=== PATIENT | male | born 1950 | race Caucasian/White ===

== ENCOUNTER → 2017-11-24 08:58 | Outpatient (CLI) | payer MEDICARE, OTHER, SELFPAY ==
[2017-11-24 14:17] LABS: Basophils # 0.1 K/mm3 (0-0.2); Basophils % 0.6 % (0.1-2.0); Eosinophils # 0.3 K/mm3 (0.0-0.4); Eosinophils % 2.6 % (0.1-12.0); Hematocrit 53.6 % (42.0-52.0); Hemoglobin 16.2 g/dL (14.1-18.0); Lymphocytes # 1.3 K/mm3 (0.7-4.5); Lymphocytes % 13.5 K/mm3 (10-50); Mean Corpuscular HGB Conc 30.2 g/dL (31.8-35.4); Mean Corpuscular Hemoglobin 28.8 pg (27.0-31.2); Mean Corpuscular Volume 95.3 fl (80-94); Mean Platelet Volume 7.9 fl (7.4-10.4); Monocytes # 0.5 K/mm3 (0.1-1.0); Neutrophils # 7.5 K/mm3 (1.8-7.8); Neutrophils % 78.3 % (37.0-80.0); Platelet Count 284 K/mm3 (142-424); Red Blood Count 5.63 M/mm3 (4.60-6.20); Red Cell Distribution Width 17.3 % (11.5-17.5); White Blood Count 9.6 K/mm3 (4.8-10.8)
[2017-11-24 14:29] LABS: Phosphorous 3.5 mg/dL (2.4-4.9)
[2017-11-24 14:40] LABS: Alanine Aminotransferase 38 U/L (12-78); Albumin Level 3.9 gm/dL (3.4-5.0); Albumin/Globulin Ratio 1.1 (1.1-1.8); Alkaline Phosphatase 90 U/L (46-116); Anion Gap 11.5 mEq/L (5-15); Aspartate Amino Transferase 21 U/L (15-37); Bilirubin,Total 0.6 mg/dL (0.2-1.0); Blood Urea Nitrogen 18 mg/dL (7-18); Calcium 8.6 mg/dL (8.5-10.1); Carbon Dioxide 27 mmol/L (21.0-32.0); Chloride 105 mmol/L (98-107); Chol/HDL Ratio 6.7 (1-3.5); Cholesterol 201 mg/dL (140-200); Creatinine,Serum 1.44 mg/dL (0.70-1.30); Estimated Glomerular Filt Rate 49 ml/min (>60); GFR (African American) 59 ML/MIN (>60); Globulin 3.6 gm/dl (1.3-3.2); Glucose 190 mg/dL (74-106); HDL Cholesterol 30 mg/dL (27-67); LDL Cholesterol 127 mg/dL (0-130); Potassium 4.5 mmoL/L (3.5-5.1); Sodium 139 mmol/L (136-145); Thyroid Stimulating Hormone 0.16 uIU/ml (0.358-3.740); Total Protein,Serum 7.5 gm/dL (6.4-8.2); Triglycerides 221 mg/dL (30-200); VLDL Cholesterol 44 mg/dL (0-40)
[2017-11-24 14:55] LABS: Hemoglobin A1C 7.5 % (0.0-7.0)
[2017-11-24 15:11] LABS: Erythrocyte Sedimentation Rate 10 mm/hr (0-20)
[2017-11-25 09:03] LABS: Vitamin D 25 Hydroxy 45.5 ng/mL (30.0-100.0)
[2017-11-25 10:20] LABS: Microalbumin, Urine 148.3 ug/mL (Not Estab.)
[2017-11-26 12:24] LABS: Parathyroid Hormone Intact 48 pg/mL (15-65)
== END ==
PROVIDERS: Internal Medicine Nephrology; Visit Provider Internal Medicine
DX: E11.9 Type 2 diabetes mellitus without complications (principal); I10 Essential (primary) hypertension; M05.9 Rheumatoid arthritis with rheumatoid factor, unspecified; N18.3 Chronic kidney disease, stage 3 (moderate)
CPT/HCPCS: 36415; 80053; 80061; 82043; 82570; 82652; 83036; 83970; 84100; 84443; 85025; 85651

== ENCOUNTER → 2019-03-15 14:36 | Outpatient (CLI) | payer MEDICARE, OTHER, SELFPAY ==
[2019-03-15 15:01] LABS: Hematocrit 49.7 % (42.0-52.0); Hemoglobin 15.9 g/dL (14.1-18.0)
[2019-03-15 15:56] LABS: Albumin Level 3.5 gm/dL (3.4-5.0); Anion Gap 12.7 mEq/L (5-15); Blood Urea Nitrogen 16 mg/dL (7-18); Calcium 8.6 mg/dL (8.5-10.1); Carbon Dioxide 30 mmol/L (21.0-32.0); Chloride 104 mmol/L (98-107); Creatinine,Serum 1.57 mg/dL (0.70-1.30); Estimated Glomerular Filt Rate 44 ml/min (>60); GFR (African American) 53 ML/MIN (>60); Glucose 202 mg/dL (74-106); Phosphorous 4.1 mg/dL (2.4-4.9); Potassium 4.7 mmoL/L (3.5-5.1); Sodium 142 mmol/L (136-145)
[2019-03-17 13:16] LABS: Creatinine, Urine 34.9 mg/dL (Not Estab.); Microalbumin, Urine 31.4 ug/mL (Not Estab.)
[2019-03-18 11:01] LABS: Parathyroid Hormone Intact 44 pg/mL (15-65)
== END ==
PROVIDERS: Visit Provider Internal Medicine Nephrology
DX: N18.3 Chronic kidney disease, stage 3 (moderate) (principal)
CPT/HCPCS: 36415; 80069; 82043; 82570; 83970; 85014; 85018

== ENCOUNTER → 2019-10-01 12:35 | Outpatient (CLI) | payer MEDICARE, OTHER, SELFPAY ==
[2019-10-01 13:07] LABS: Hematocrit 52.4 % (42.0-52.0); Hemoglobin 16.3 g/dL (14.1-18.0)
[2019-10-01 15:03] LABS: Albumin Level 4.7 g/dl (3.5-5.0); Anion Gap 7.2 mEq/L (5-15); Blood Urea Nitrogen 18 mg/dl (9-20); Calcium 9.7 mg/dl (8.4-10.2); Carbon Dioxide 30 mmol/L (22.0-30.0); Chloride 103 mmol/L (98-107); Estimated Glomerular Filt Rate 46 ml/min (>60); GFR (African American) 56 ML/MIN (>60); Glucose 151 mg/dl (74-100); Potassium 5.2 mmoL/L (3.5-5.1); Sodium 135 mmol/L (136-145)
[2019-10-02 04:34] LABS: Iron 47 ug/dL (38-169); UIBC 278 ug/dL (111-343)
[2019-10-02 08:15] LABS: Iron Saturation 14 % (15-55); Vitamin D 25 Hydroxy 43.8 ng/mL (30.0-100.0)
[2019-10-02 10:56] LABS: Creatinine, Urine 105.9; Microalbumin, Urine 117.4
[2019-10-03 05:51] LABS: Parathyroid Hormone Intact 36 pg/mL (15-65)
== END ==
PROVIDERS: Visit Provider Internal Medicine Nephrology
DX: N18.3 Chronic kidney disease, stage 3 (moderate); E87.2 Acidosis; I12.9 Hypertensive chronic kidney disease with stage 1 through stage 4 chronic kidney disease, or unspecified chronic kidney disease; R79.0 Abnormal level of blood mineral
CPT/HCPCS: 36415; 80069; 82043; 82570; 82652; 83540; 83550; 83970; 85014; 85018

== ENCOUNTER → 2020-04-05 09:33 | Outpatient (CLI) | payer MEDICARE, OTHER, SELFPAY ==
[2020-04-05 10:29] LABS: Creatinine,Urine Random 139 mg/dL (Not Estab.); Microalbumin/Creatinine Ratio 223.1
[2020-04-05 11:16] LABS: Albumin Level 4.3 g/dl (3.5-5.0); Anion Gap 12.4 mEq/L (5-15); Blood Urea Nitrogen 15 mg/dl (9-20); Calcium 9.2 mg/dl (8.4-10.2); Carbon Dioxide 29 mmol/L (22.0-30.0); Chloride 105 mmol/L (98-107); Estimated Glomerular Filt Rate 46 ml/min (>60); GFR (African American) 56 ML/MIN (>60); Glucose 118 mg/dl (74-100); Phosphorous 3.7 mg/dl (2.5-4.5); Potassium 4.4 mmoL/L (3.5-5.1); Sodium 142 mmol/L (136-145)
[2020-04-05 11:33] LABS: 25-OH Vitamin D, Total 72.6 ng/mL (30-100)
== END ==
PROVIDERS: PCP Internal Medicine; Visit Provider Internal Medicine Nephrology
DX: N18.30 Chronic kidney disease, stage 3 unspecified (principal)
CPT/HCPCS: 36415; 80069; 82043; 82306; 82570

== ENCOUNTER 2020-12-25 16:00 | Outpatient (RCR) | payer MEDICARE, OTHER, SELFPAY | END 2021-01-23 09:27 | disposition home or self-care (01) | LOC: PT.CARL 16:00 | PROVIDERS: PCP Internal Medicine; Visit Provider Nurse Practitioner Family | DX: M51.36 Other intervertebral disc degeneration, lumbar region (principal) | CPT/HCPCS: 97010; 97014; 97110; 97140; 97163; G0283 ==

== ENCOUNTER → 2021-06-05 10:21 | Outpatient (CLI) | payer MEDICARE, OTHER, SELFPAY ==
[2021-06-05 10:24] LABS: Microscopic, Urine URINE MICROSCOPIC (MICROSCOPIC)
[2021-06-05 13:56] LABS: Appearance,Urine CLEAR (Clear); Bilirubin,Urine Negative (Negative); Blood, Urine Negative (Negative); Color,Urine YELLOW (Yellow); Glucose,Urine (UA) 3+ (Negative); Ketones,Urine Negative (Negative); Leukocyte Esterase,Urine Negative (Negative); Nitrate,Urine Negative (Negative); PH,Urine 5.5 (5.0-8.5); Protein,Urine TRACE (Negative); Specific Gravity, Urine 1.025 (1.005-1.030); Urobilinogen,Urine 0.2 EU/dl (0.2)
[2021-06-05 14:02] LABS: Anion Gap 12.1 mEq/L (5-15); Blood Urea Nitrogen 16 mg/dl (9-20); Calcium 9.1 mg/dl (8.4-10.2); Carbon Dioxide 29 mmol/L (22.0-30.0); Chloride 100 mmol/L (98-107); Estimated Glomerular Filt Rate 40 ml/min (>60); GFR (African American) 48 ML/MIN (>60); Glucose 212 mg/dl (74-100); Phosphorous 3.6 mg/dl (2.5-4.5); Potassium 4.1 mmoL/L (3.5-5.1); Sodium 137 mmol/L (136-145)
[2021-06-05 14:04] LABS: Hematocrit 47.4 % (42.0-52.0); Hemoglobin 14.2 g/dL (14.1-18.0)
[2021-06-05 14:10] LABS: Intact Parathyroid Hormone 67.9 pg/mL (7.5-53.5); Squamous Epithelial Cell,Urine Occasional #/hpf (0-5)
[2021-06-05 14:15] LABS: 25-OH Vitamin D, Total 58.6 ng/mL (30-100)
== END ==
PROVIDERS: Visit Provider Internal Medicine Nephrology
DX: I10 Essential (primary) hypertension (principal); N18.30 Chronic kidney disease, stage 3 unspecified; E87.2 Acidosis; Z86.39 Personal history of other endocrine, nutritional and metabolic disease
CPT/HCPCS: 36415; 80069; 81001; 82306; 83970; 85014; 85018

== ENCOUNTER → 2021-09-18 09:20 | Outpatient (CLI) | payer MEDICARE, OTHER, SELFPAY ==
[2021-09-18 14:03] LABS: Chloride 105 mmol/L (98-107); Sodium 140 mmol/L (136-145)
[2021-09-18 14:04] LABS: Albumin Level 3.9 g/dl (3.5-5.0); Potassium 4.4 mmoL/L (3.5-5.1)
[2021-09-18 14:06] LABS: Anion Gap 10.4 mEq/L (5-15); Blood Urea Nitrogen 24 mg/dl (9-20); Carbon Dioxide 29 mmol/L (22.0-30.0); Estimated Glomerular Filt Rate 46 ml/min (>60); GFR (African American) 56 ML/MIN (>60)
[2021-09-18 14:07] LABS: Calcium 9.2 mg/dl (8.4-10.2); Glucose 164 mg/dl (74-100); Phosphorous 4.4 mg/dl (2.5-4.5)
== END ==
PROVIDERS: Visit Provider Internal Medicine Nephrology
DX: N18.31 Chronic kidney disease, stage 3a (principal)
CPT/HCPCS: 36415; 80069

== ENCOUNTER 2021-12-20 14:30 | Outpatient (RCR) | payer MEDICARE, OTHER, SELFPAY | END 2022-01-24 16:50 | disposition home or self-care (01) | LOC: PT.CARL 14:30 | PROVIDERS: PCP Internal Medicine; Visit Provider Anesthesiology | DX: M47.816 Spondylosis without myelopathy or radiculopathy, lumbar region (principal) | CPT/HCPCS: 97010; 97014; 97035; 97110; 97140; 97163; 97164; G0283 ==

== ENCOUNTER 2022-05-08 10:56 | Outpatient (RCR) | payer MEDICARE, OTHER, SELFPAY | END 2022-06-25 11:45 | disposition home or self-care (01) | LOC: PT.CARL 10:56 | PROVIDERS: PCP Internal Medicine; Visit Provider Internal Medicine | DX: M54.50 Low back pain, unspecified (principal); S39.92XD Unspecified injury of lower back, subsequent encounter | CPT/HCPCS: 97010; 97014; 97110; 97163; G0283 ==

== ENCOUNTER 2024-02-12 14:18 | Emergency (ER) | payer MEDICARE, OTHER, SELFPAY ==
[2024-02-12] VITALS (16 sets, daily range): BP systolic 135–204; BP diastolic 67–93; PULSE 72–82; RESP 13–20; TEMP 36.6–37.5; O2SAT 90–98; BMI 25.7
--- NOTE | 2024-02-12 14:22 | ED_ITS ---
<Statement entered by Lucy Ponce DO - 02/12/24 22:29> I was consulted by the SAROJ, and we discussed the complexity of the problems being addressed. I approved the treatment and management plan for this patient's care in the emergency department, thus performing a substantive portion of the medical decision making. Lucy Ponce DO Discharge Plan Disposition Patient Disposition: Xfer Short-Term Hosp Condition: Serious Prescriptions Prescriptions: No Action clopidogrel 75 mg Tablet 75 mg PO DAILY bupropion HCl 100 mg Tablet 100 mg PO BID amlodipine 10 mg Tablet 10 mg PO DAILY aspirin 81 mg Capsule 81 mg PO DAILY folic acid 1 mg Tablet 2 mg PO DAILY Rx Instructions: everyday but friday empagliflozin 25 mg Tablet 25 mg PO DAILY cetirizine 10 mg Tablet 5 mg PO DAILY metoprolol tartrate 100 mg Tablet 100 mg PO BID tramadol 50 mg Tablet 50 mg PO DAILY glimepiride 2 mg Tablet 2 mg PO DAILY famotidine 20 mg Tablet 20 mg PO DAILY trazodone 100 mg Tablet 100 mg PO DAILY PRN (Reason: Sleep) hydrocortisone 2.5 % Cream 1 applic TOPICAL QID PRN (Reason: sleep) methimazole 10 mg Tablet See Rx Instructions .ROUTE .COMPLEX Rx Instructions: 10 mg orally Friday/Friday/Friday memantine 10 mg Tablet 10 mg PO BID pregabalin 150 mg Capsule 150 mg PO BID Activity Restrictions/Add. Instructions Additional Instructions/Restrictions: To [place] Main care of Dr. Aragon Clinical Impressions Clinical Impression: Small bowel obstruction, Acute hypoxic respiratory failure, Clostridioides difficile infection Aspiration pneumonia Qualifiers: Aspiration pneumonia type: due to vomit Laterality: bilateral Lung location: l ower lobe of lung Qualified Code(s): J69.0 - Pneumonitis due to inhalation of food and vomit Stand Alone Forms Stand Alone Forms: Transfer Record - ED Instructions Patient Instructions: DI for Acute Abdominal Pain Print Language Print Language: Haitian Discharge ED Provider: Lucy Ponce General Adult HPI <KLAUS Schulte - Last Filed: 02/12/24 19:38> General Chief complaint: Abdominal Pain Stated complaint: nausea/abdominal pain(has colostomy bag) Time Seen by Provider: 02/12/24 14:22 History of Present Illness HPI narrative: Patient presents for evaluation of acute onset of nausea and abdominal pain. 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 Additionally he has had endovascular repair of a AAA aortic aneurysm as well as open heart surgery x 2. Patient states that his vomiting started first thing this morning and he has not been able to tolerate oral intake since. He reports his abdomen hurts diffusely as well. He reports no ostomy output today. He denies chest pain fever chills hemoptysis hematochezia melena hematemesis hematuria. Related Data Home Medications ?Medication ?Instructions ?Recorded ?Confirmed amlodipine 10 mg tablet 10 mg PO DAILY 02/12/24 02/12/24 aspirin 81 mg capsule 81 mg PO DAILY 02/12/24 02/12/24 bupropion HCl 100 mg tablet 100 mg PO BID 02/12/24 02/12/24 cetirizine 10 mg tablet 5 mg PO DAILY 02/12/24 02/12/24 clopidogrel 75 mg tablet 75 mg PO DAILY 02/12/24 02/12/24 empagliflozin 25 mg tablet 25 mg PO DAILY 02/12/24 02/12/24 famotidine 20 mg tablet 20 mg PO DAILY 02/12/24 02/12/24 folic acid 1 mg tablet 2 mg PO DAILY 02/12/24 02/12/24 glimepiride 2 mg tablet 2 mg PO DAILY 02/12/24 02/12/24 hydrocortisone 2.5 % topical cream 1 applic topical QID PRN sleep 02/12/24 02/12/24 memantine 10 mg tablet 10 mg PO BID 02/12/24 02/12/24 methimazole 10 mg tablet See Rx Instructions .Route .COMPLEX 02/12/24 02/12/24 metoprolol tartrate 100 mg tablet 100 mg PO BID 02/12/24 02/12/24 pregabalin 150 mg capsule 150 mg PO BID 02/12/24 02/12/24 tramadol 50 mg tablet 50 mg PO DAILY 02/12/24 02/12/24 trazodone 100 mg tablet 100 mg PO DAILY PRN Sleep 02/12/24 02/12/24 Allergies Allergy/AdvReac Type Severity Reaction Status Date / Time ibuprofen Allergy Unknown Verified 02/12/24 14:26 Penicillins Allergy Unknown Verified 02/12/24 14:40 Sulfa (Sulfonamide Allergy Unknown Verified 02/12/24 14:40 Antibiotics) [facility] <KLAUS Schulte - Last Filed: 02/12/24 19:38> [facility] Disclaimer: The information contained in this section may have been updated after the patient was seen, as this information can be updated by other users. Social History (Updated 02/12/24 @ 19:38 by KLAUS Schulte) Smoking Status: Never smoker alcohol intake: never current occupational status: retired Travel in the last 8 weeks: None <KLAUS Schulte - Last Filed: 02/12/24 19:38> ROS Obtained: Yes Systems reviewed as appropriate & no additional complaints except as documented Physical Exam <KLAUS Schulte - Last Filed: 02/12/24 19:38> General General appearance: alert and in no apparent distress Respiratory Respiratory exam: Present normal lung sounds bilaterally Cardiovascular Cardiovascular exam: Present regular rate Neurological Exam Neurological exam: Present alert and oriented X3 Medical Decision Making <KLAUS Schulte - Last Filed: 02/12/24 19:38> Medical Records Medical records reviewed: Yes I reviewed the patient's medical records. Screening: Per USPSTF and CDC recommendations, given the prevalence of disease in our region, it is our hospital?s policy to screen for HIV and viral Hepatitis for all patients aged 18 and over and those with ongoing risk factors. Markus Inquiry Pt receiving controlled substance: No Vital Signs: 02/12/24 14:18 02/12/24 14:19 02/12/24 14:59 Temperature 99.5 F Temperature Source Oral Pulse Rate 82 81 Pulse Rate [Left Radial] 82 Respiratory Rate 13 Blood Pressure 155/87 H 177/91 H Blood Pressure [Right Arm] 155/87 H Blood Pressure Mean Blood Pressure Mean [Right Arm] 109 02 Sat by Pulse Oximetry 90 L 90 L 93 L Oxygen Delivery Method Room Air Room Air Nasal Cannula 02/12/24 16:01 02/12/24 16:30 02/12/24 17:01 Temperature Temperature Source Pulse Rate 82 81 78 Pulse Rate [Left Radial] Respiratory Rate 18 Blood Pressure 198/93 H 202/85 H 161/67 H Blood Pressure [Right Arm] Blood Pressure Mean 124 98 Blood Pressure Mean [Right Arm] 02 Sat by Pulse Oximetry 96 93 L 95 Oxygen Delivery Method Nasal Cannula 02/12/24 17:30 02/12/24 18:00 02/12/24 18:31 Temperature Temperature Source Pulse Rate 76 77 72 Pulse Rate [Left Radial] Respiratory Rate Blood Pressure 156/68 H 154/74 H 161/75 H Blood Pressure [Right Arm] Blood Pressure Mean Blood Pressure Mean [Right Arm] 02 Sat by Pulse Oximetry 95 95 96 Oxygen Delivery Method Room Air Room Air 02/12/24 19:01 02/12/24 19:10 02/12/24 19:31 Temperature Temperature Source Pulse Rate 76 80 78 Pulse Rate [Left Radial] Respiratory Rate Blood Pressure 204/85 H 166/87 H 191/86 H Blood Pressure [Right Arm] Blood Pressure Mean 113 121 Blood Pressure Mean [Right Arm] 02 Sat by Pulse Oximetry 98 96 96 Oxygen Delivery Method 02/12/24 19:42 02/12/24 20:00 02/12/24 20:30 Temperature Temperature Source Pulse Rate 76 76 79 Pulse Rate [Left Radial] Respiratory Rate Blood Pressure 180/81 H 175/79 H 173/77 H Blood Pressure [Right Arm] Blood Pressure Mean 113 111 Blood Pressure Mean [Right Arm] 02 Sat by Pulse Oximetry 96 94 L 95 Oxygen Delivery Method 02/12/24 23:27 Temperature 97.8 F Temperature Source Pulse Rate 72 Pulse Rate [Left Radial] Respiratory Rate 20 Blood Pressure 135/81 Blood Pressure [Right Arm] Blood Pressure Mean Blood Pressure Mean [Right Arm] 02 Sat by Pulse Oximetry Oxygen Delivery Method Lab Data Lab results reviewed: Yes I reviewed the patient's lab results. Lab Results 02/12/24 14:25: WBC 16.5 H, RBC 6.52 H, Hgb 21.0 H, Hct 64.7 H*, MCV 99.3 H, MCH 32.3 H, MCHC 32.5, RDW 16.1, Plt Count 155, MPV 9.1, Neut % (Auto) 89.9 H, Lymph % (Auto) 3.1 L, [place] % (Auto) 6.4, Eos % (Auto) 0.0 L, Baso % (Auto) 0.5, Neut # (Auto) 14.9 H, Lymph # (Auto) 0.5 L, [place] # (Auto) 1.1 H, Eos # (Auto) 0.0, Baso # (Auto) 0.1, Total Counted 100, Neutrophils % (Manual) 81 H, Band Neutrophils % 1.0, Lymphocytes % (Manual) 4 L, Monocytes % (Manual) 14 H, Platelet Estimate Normal, Giant Platelets 1+, RBC Morphology Normal, PT 11.9, INR 1.07, Sodium 140, Potassium 4.5, Chloride 107, Carbon Dioxide 24, Anion Gap 13.5, BUN 23 H, C reatinine 1.70 H, Estimated Creat Clear 48, Estimated GFR 40 L, Est GFR ( Amer) 48 L, Glucose 212 H, Calcium 8.8, Total Bilirubin 1.4 H, AST 33, ALT 33, Alkaline Phosphatase 63, Total Protein 7.1, Albumin 3.9, Globulin 3.2, Albumin/Globulin Ratio 1.2, Lipase 59, Procalcitonin 3.46 H, HIV 1&2 Antibody Rapid Nonreactive 02/12/24 14:35: Lactate 2.4 H 02/12/24 14:56: Stl Aeromonas (PCR) Not detected, Stl C. cayetanensis PCR Not detected, Stool Rotavirus (PCR) Not detected, Stl Adenov F 40/41 PCR Not detected, Stool Astrovirus (PCR) Not detected, Stool Campylobacter PCR Not detected, Stl C.difficile Tox PCR Detected A, Stool Cryptosporidium PCR Not detected, Stl E.coli Shiga Tox PCR Not detected, Stool E coli O157 PCR Not detected, Stl Enterotoxigenic E PCR Not detected, Stool EPEC (PCR) Not detected, Stool EAEC (PCR) Not detected, Stl E. histolytica PCR Not detected, Stool Giardia Lamblia PCR Not detected, Stool Salmonella PCR Not detected, Stool Sapovirus (PCR) Not detected, Stl P. shigelloides PCR Not detected, Stl Shigella/EIEC PCR Not detected, St Y.enterocolitica PCR Not detected, Stool Vibrio (PCR) Not detected, Stl Vibrio cholerae PCR Not detected, Stl Norovirus GI/GII PCR Not detected 02/12/24 18:52: Lactate 2.5 H 02/12/24 14:25 02/12/24 14:25 Orders (Tests/Meds): ED MEDICATIONS Discontinued Medications Generic Name Dose Route Start Last Admin Trade Name Freq PRN Reason Stop Dose Admin Acetaminophen 1,000 mg 02/12/24 14:27 02/12/24 14:48 Acetaminophen 1,000mg/100ml Vial IV 02/12/24 14:28 1,000 mg ONCE ONE Administration Benzocaine/Butamben/Tetracaine HCl 1 gm 02/12/24 22:52 02/12/24 22:58 Tetracaine/Benzocaine/Butamben 56 Gm [place] TP 03/13/24 22:51 1 gm NEEDED PRN Administration Sore Throat Cocaine HCl 1 ml 02/12/24 14:27 02/12/24 14:45 Cocaine 4% Topical Soln 4ml Bottle TP 02/12/24 14:28 Not Given ONCE ONE Epinephrine HCl 1 mg 02/12/24 14:27 02/12/24 14:45 Epinephrine 1 Mg/Ml Ampul TP 02/12/24 14:28 Not Given ONCE ONE Lactated Ringer's 1,000 mls @ 999 mls/hr 02/12/24 14:27 02/12/24 14:48 Lactated Ringer's 1000 Ml Bag IV 02/12/24 15:27 999 mls/hr .Q1H1M ONE Administration Metronidazole 500 mg in 100 mls @ 100 mls/hr 02/12/24 16:55 02/12/24 18:01 Flagyl 500mg/100ml Ivpb IV 02/12/24 17:54 100 mls/hr ONCE ONE Administration Cefepime HCl 2 gm/ Sodium 100 mls @ 200 mls/hr 02/12/24 16:55 02/12/24 17:26 Chloride IV 02/12/24 17:24 200 mls/hr ONCE ONE Administration Vancomycin HCl 2,000 mg/ 250 mls @ 125 mls/hr 02/12/24 17:15 02/12/24 19:15 Sodium Chloride IV 02/12/24 19:14 125 mls/hr ONCE ONE Administration Norepinephrine/Dextrose 8 mg in 250 mls @ 3.75 mls/hr 02/12/24 18:36 02/12/24 19:01 Norepinephrine 8mg/250ml-D5w Premix IV 03/13/24 18:35 Not Given .Q24H SHAISTA Protocol 2 MCG/MIN Cefepime HCl 2 gm/ Sodium 100 mls @ 200 mls/hr 02/13/24 01:25 Chloride IV 02/23/24 01:24 Q8H SHAISTA Metronidazole 500 mg in 100 mls @ 100 mls/hr 02/13/24 02:00 Flagyl 500mg/100ml Ivpb IV 02/23/24 01:59 Q8H SHAISTA Lactated Ringer's 1,000 mls @ 75 mls/hr 02/12/24 22:30 02/12/24 22:48 Lactated Ringer's 1000 Ml Bag IV 03/13/24 22:29 75 mls/hr .[id number] SHAISTA Administration Iopamidol 75 ml 02/12/24 15:45 02/12/24 15:46 Iopamidol-370 (76%);100ml Bottle IV 02/12/24 15:46 75 ml ONCE ONE Administration Lidocaine HCl 1 ml 02/12/24 14:27 02/12/24 14:45 Lidocaine 2% Urojet 10ml TP 02/12/24 14:28 Not Given ONCE ONE Miscellaneous 1 each 02/12/24 17:00 Vancomycin Consult Request NOTAPPLIC 03/13/24 16:59 [facility] Morphine Sulfate 4 mg 02/12/24 22:24 Morphine 4mg/Ml Syringe IV 03/13/24 22:23 Q2HP PRN pain Ondansetron HCl 4 mg 02/12/24 14:27 02/12/24 14:48 Ondansetron 4mg/2ml Vial IV 02/12/24 14:28 4 mg ONCE ONE Administration Ondansetron HCl 4 mg 02/12/24 22:24 Ondansetron 4mg/2ml Vial IV 03/13/24 22:23 Q8HP PRN Nausea And Vomiting Sodium Chloride 10 ml 02/12/24 15:45 02/12/24 15:46 Sodium Chloride 0.9% 10ml Syr (Rad Only) IV 03/13/24 15:44 10 ml NEEDED PRN Administration Maintain IV Site ORDERS Category Date Time Status CT abdomen pelvis w con Stat Cat Scan 02/12/24 14:28 Completed KUB (single view) [XR KUB] Stat Exams 02/12/24 17:09 Completed CBC w/Auto Diff [Complete Blood Count Auto Diff] Stat Lab 02/12/24 14:25 Completed CMP [Comprehensive Metabolic Panel] Stat Lab 02/12/24 14:25 Completed Diarrhea 23 Panel, PCR Stat Lab 02/12/24 14:56 Completed HIV (1&2) Antibody Rapid Stat Lab 09/19/24 14:25 Completed Hep C Ab with Reflex to RNA Stat Lab 02/12/24 14:25 Received INR [Prothrombin Time INR] Stat Lab 02/12/24 14:25 Completed Lactic Acid Follow Up (RFLX 1) Stat Lab 02/12/24 18:52 Completed Lactic Acid Stat Lab 02/12/24 14:35 Completed Lipase Stat Lab 02/12/24 14:25 Completed Procalcitonin Stat Lab 02/12/24 14:25 Completed Blood Culture Stat Micro 02/12/24 17:03 Received Medical Decision Narrative: In summary patient is a 73-year-old male who presents to the emergency department for evaluation of vomiting and abdominal pain. Patient is hemodynamically stable upon arrival, afebrile. Physical exam is remarkable for diffuse abdominal tenderness and a taut abdomen but normal bowel sounds. His ostomy is pink and he has foul-smelling stool in the bag. Differential diagnosis includes gastroenteritis versus bowel obstruction versus gastritis versus pancreatitis etc. Initial workup will be conducted with hematologic labs, urinalysis, CT scan abdomen pelvis. Initial interventions include crystalloid bolus, acetaminophen and Zofran. Initial workup reviewed by me shows hemoconcentration but elevated white count with neutrophilic shift, normal urinalysis, elevated lactate, my informal interpretation of his CT scan abdomen pelvis shows a fluid distended stomach and proximal small bowel with decompressed small bowel distally but no definitive transition point, he has dense consolidation bibasilarly. Upon repeat evaluation and given his CT scan results I personally placed his NG tube which brought back feculent material. He had about 1500 cc immediate return after NG tube placement. Given that I had interactive discussion with the family regarding findings and need for hospital admission. They requested [facility] system given that all of his previous surgeries have been done there. I had interactive discussion with both the general surgery and hospital teams at [facility] about patient management. He has graciously been accepted in transfer to the care of Dr. Aragon of hospital medicine. <Lucy Ponce, DO - Last Filed: 02/12/24 22:29> Vital Signs: 02/12/24 14:18 02/12/24 14:19 02/12/24 14:59 Temperature 99.5 F Temperature Source Oral Pulse Rate 82 81 Pulse Rate [Left Radial] 82 Respiratory Rate 13 Blood Pressure 155/87 H 177/91 H Blood Pressure [Right Arm] 155/87 H Blood Pressure Mean Blood Pressure Mean [Right Arm] 109 02 Sat by Pulse Oximetry 90 L 90 L 93 L Oxygen Delivery Method Room Air Room Air Nasal Cannula 02/12/24 16:01 02/12/24 16:30 02/12/24 17:01 Temperature Temperature Source Pulse Rate 82 81 78 Pulse Rate [Left Radial] Respiratory Rate 18 Blood Pressure 198/93 H 202/85 H 161/67 H Blood Pressure [Right Arm] Blood Pressure Mean 124 98 Blood Pressure Mean [Right Arm] 02 Sat by Pulse Oximetry 96 93 L 95 Oxygen Delivery Method Nasal Cannula 02/12/24 17:30 02/12/24 18:00 02/12/24 18:31 Temperature Temperature Source Pulse Rate 76 77 72 Pulse Rate [Left Radial] Respiratory Rate Blood Pressure 156/68 H 154/74 H 161/75 H Blood Pressure [Right Arm] Blood Pressure Mean Blood Pressure Mean [Right Arm] 02 Sat by Pulse Oximetry 95 95 96 Oxygen Delivery Method Room Air Room Air 02/12/24 19:01 02/12/24 19:10 02/12/24 19:31 Temperature Temperature Source Pulse Rate 76 80 78 Pulse Rate [Left Radial] Respiratory Rate Blood Pressure 204/85 H 166/87 H 191/86 H Blood Pressure [Right Arm] Blood Pressure Mean 113 121 Blood Pressure Mean [Right Arm] 02 Sat by Pulse Oximetry 98 96 96 Oxygen Delivery Method 02/12/24 19:42 02/12/24 20:00 02/12/24 20:30 Temperature Temperature Source Pulse Rate 76 76 79 Pulse Rate [Left Radial] Respiratory Rate Blood Pressure 180/81 H 175/79 H 173/77 H Blood Pressure [Right Arm] Blood Pressure Mean 113 111 Blood Pressure Mean [Right Arm] 02 Sat by Pulse Oximetry 96 94 L 95 Oxygen Delivery Method 02/12/24 23:27 Temperature 97.8 F Temperature Source Pulse Rate 72 Pulse Rate [Left Radial] Respiratory Rate 20 Blood Pressure 135/81 Blood Pressure [Right Arm] Blood Pressure Mean Blood Pressure Mean [Right Arm] 02 Sat by Pulse Oximetry Oxygen Delivery Method Lab Data Lab Results 02/12/24 14:25: WBC 16.5 H, RBC 6.52 H, Hgb 21.0 H, Hct 64.7 H*, MCV 99.3 H, MCH 32.3 H, MCHC 32.5, RDW 16.1, Plt Count 155, MPV 9.1, Neut % (Auto) 89.9 H, Lymph % (Auto) 3.1 L, [place] % (Auto) 6.4, Eos % (Auto) 0.0 L, Baso % (Auto) 0.5, Neut # (Auto) 14.9 H, Lymph # (Auto) 0.5 L, [place] # (Auto) 1.1 H, Eos # (Auto) 0.0, Baso # (Auto) 0.1, Total Counted 100, Neutrophils % (Manual) 81 H, Band Neutrophils % 1.0, Lymphocytes % (Manual) 4 L, Monocytes % (Manual) 14 H, Platelet Estimate Normal, Giant Platelets 1+, RBC Morphology Normal, PT 11.9, INR 1.07, Sodium 140, Potassium 4.5, Chloride 107, Carbon Dioxide 24, Anion Gap 13.5, BUN 23 H, C reatinine 1.70 H, Estimated Creat Clear 48, Estimated GFR 40 L, Est GFR ( Amer) 48 L, Glucose 212 H, Calcium 8.8, Total Bilirubin 1.4 H, AST 33, ALT 33, Alkaline Phosphatase 63, Total Protein 7.1, Albumin 3.9, Globulin 3.2, Albumin/Globulin Ratio 1.2, Lipase 59, Procalcitonin 3.46 H, HIV 1&2 Antibody Rapid Nonreactive 02/12/24 14:35: Lactate 2.4 H 02/12/24 14:56: Stl Aeromonas (PCR) Not detected, Stl C. cayetanensis PCR Not detected, Stool Rotavirus (PCR) Not detected, Stl Adenov F 40/41 PCR Not detected, Stool Astrovirus (PCR) Not detected, Stool Campylobacter PCR Not detected, Stl C.difficile Tox PCR Detected A, Stool Cryptosporidium PCR Not detected, Stl E.coli Shiga Tox PCR Not detected, Stool E coli O157 PCR Not detected, Stl Enterotoxigenic E PCR Not detected, Stool EPEC (PCR) Not detected, Stool EAEC (PCR) Not detected, Stl E. histolytica PCR Not detected, Stool Giardia Lamblia PCR Not detected, Stool Salmonella PCR Not detected, Stool Sapovirus (PCR) Not detected, Stl P. shigelloides PCR Not detected, Stl Shigella/EIEC PCR Not detected, St Y.enterocolitica PCR Not detected, Stool Vibrio (PCR) Not detected, Stl Vibrio cholerae PCR Not detected, Stl Norovirus GI/GII PCR Not detected 02/12/24 18:52: Lactate 2.5 H Orders (Tests/Meds): ED MEDICATIONS Discontinued Medications Generic Name Dose Route Start Last Admin Trade Name Freq PRN Reason Stop Dose Admin Acetaminophen 1,000 mg 02/12/24 14:27 02/12/24 14:48 Acetaminophen 1,000mg/100ml Vial IV 02/12/24 14:28 1,000 mg ONCE ONE Administration Benzocaine/Butamben/Tetracaine HCl 1 gm 02/12/24 22:52 02/12/24 22:58 Tetracaine/Benzocaine/Butamben 56 Gm [place] TP 03/13/24 22:51 1 gm NEEDED PRN Administration Sore Throat Cocaine HCl 1 ml 02/12/24 14:27 02/12/24 14:45 Cocaine 4% Topical Soln 4ml Bottle TP 02/12/24 14:28 Not Given ONCE ONE Epinephrine HCl 1 mg 02/12/24 14:27 02/12/24 14:45 Epinephrine 1 Mg/Ml Ampul TP 02/12/24 14:28 Not Given ONCE ONE Lactated Ringer's 1,000 mls @ 999 mls/hr 02/12/24 14:27 02/12/24 14:48 Lactated Ringer's 1000 Ml Bag IV 02/12/24 15:27 999 mls/hr .Q1H1M ONE Administration Metronidazole 500 mg in 100 mls @ 100 mls/hr 02/12/24 16:55 02/12/24 18:01 Flagyl 500mg/100ml Ivpb IV 02/12/24 17:54 100 mls/hr ONCE ONE Administration Cefepime HCl 2 gm/ Sodium 100 mls @ 200 mls/hr 02/12/24 16:55 02/12/24 17:26 Chloride IV 02/12/24 17:24 200 mls/hr ONCE ONE Administration Vancomycin HCl 2,000 mg/ 250 mls @ 125 mls/hr 02/12/24 17:15 02/12/24 19:15 Sodium Chloride IV 02/12/24 19:14 125 mls/hr ONCE ONE Administration Norepinephrine/Dextrose 8 mg in 250 mls @ 3.75 mls/hr 02/12/24 18:36 02/12/24 19:01 Norepinephrine 8mg/250ml-D5w Premix IV 03/13/24 18:35 Not Given .Q24H SHAISTA Protocol 2 MCG/MIN Cefepime HCl 2 gm/ Sodium 100 mls @ 200 mls/hr 02/13/24 01:25 Chloride IV 02/23/24 01:24 Q8H SHAISTA Metronidazole 500 mg in 100 mls @ 100 mls/hr 02/13/24 02:00 Flagyl 500mg/100ml Ivpb IV 02/23/24 01:59 Q8H SHAISTA Lactated Ringer's 1,000 mls @ 75 mls/hr 02/12/24 22:30 02/12/24 22:48 Lactated Ringer's 1000 Ml Bag IV 03/13/24 22:29 75 mls/hr .[id number] SHAISTA Administration Iopamidol 75 ml 02/12/24 15:45 02/12/24 15:46 Iopamidol-370 (76%);100ml Bottle IV 02/12/24 15:46 75 ml ONCE ONE Administration Lidocaine HCl 1 ml 02/12/24 14:27 02/12/24 14:45 Lidocaine 2% Urojet 10ml TP 02/12/24 14:28 Not Given ONCE ONE Miscellaneous 1 each 02/12/24 17:00 Vancomycin Consult Request NOTAPPLIC 03/13/24 16:59 CON[facility]ULT [facility]Y [facility] Morphine Sulfate 4 mg 02/12/24 22:24 Morphine 4mg/Ml Syringe IV 03/13/24 22:23 Q2HP PRN pain Ondansetron HCl 4 mg 02/12/24 14:27 02/12/24 14:48 Ondansetron 4mg/2ml Vial IV 02/12/24 14:28 4 mg ONCE ONE Administration Ondansetron HCl 4 mg 02/12/24 22:24 Ondansetron 4mg/2ml Vial IV 03/13/24 22:23 Q8HP PRN Nausea And Vomiting Sodium Chloride 10 ml 02/12/24 15:45 02/12/24 15:46 Sodium Chloride 0.9% 10ml Syr (Rad Only) IV 03/13/24 15:44 10 ml NEEDED PRN Administration Maintain IV Site ORDERS Category Date Time Status CT abdomen pelvis w con Stat Cat Scan 02/12/24 14:28 Completed KUB (single view) [XR KUB] Stat Exams 02/12/24 17:09 Completed CBC w/Auto Diff [Complete Blood Count Auto Diff] Stat Lab 02/12/24 14:25 Completed CMP [Comprehensive Metabolic Panel] Stat Lab 02/12/24 14:25 Completed Diarrhea 23 Panel, PCR Stat Lab 02/12/24 14:56 Completed HIV (1&2) Antibody Rapid Stat Lab 02/12/24 14:25 Completed Hep C Ab with Reflex to RNA Stat Lab 02/12/24 14:25 Received INR [Prothrombin Time INR] Stat Lab 02/12/24 14:25 Completed Lactic Acid Follow Up (RFLX 1) Stat Lab 02/12/24 18:52 Completed Lactic Acid Stat Lab 02/12/24 14:35 Completed Lipase Stat Lab 02/12/24 14:25 Completed Procalcitonin Stat Lab 02/12/24 14:25 Completed Blood Culture Stat Micro 02/12/24 17:03 Received Medical Decision Narrative: In summary patient is a 73-year-old male who presents to the emergency department for evaluation of vomiting and abdominal pain. Patient is hemodynamically stable upon arrival, afebrile. Physical exam is remarkable for diffuse abdominal tenderness and a taut abdomen but normal bowel sounds. His ostomy is pink and he has foul-smelling stool in the bag. Differential diagnosis includes gastroenteritis versus bowel obstruction versus gastritis versus pancreatitis etc. Initial workup will be conducted with hematologic labs, urinalysis, CT scan abdomen pelvis. Initial interventions include crystalloid bolus, acetaminophen and Zofran. Initial workup reviewed by me shows hemoconcentration but elevated white count with neutrophilic shift, normal urinalysis, elevated lactate, my informal interpretation of his CT scan abdomen pelvis shows a fluid distended stomach and proximal small bowel with decompressed small bowel distally but no definitive transition point, he has dense consolidation bibasilarly. Upon repeat evaluation and given his CT scan results I personally placed his NG tube which brought back feculent material. He had about 1500 cc immediate return after NG tube placement. Given that I had interactive discussion with the family regarding findings and need for hospital admission. They requested [facility] system given that all of his previous surgeries have been done there. I had interactive discussion with both the general surgery and hospital teams at [facility] about patient management. He has graciously been accepted in transfer to the care of Dr. Aragon of [facility]. Kris DO: Patient remained in the ED for an extended period of time while we waited for EMS transport to be available, as [place]ul[place] multiple other patients. In the meantime, continued every 8 hours cefepime and Flagyl ordered as well as maintenance IV fluids at 75/hr. Patient has been stable throughout ED stay. At 1900, patient was placed in ED observation status pending transfer to outside hospital while awaiting EMS transport. The patient was provided serial reevaluations and cardiac monitoring while awaiting ultimate disposition. On multiple reassessments, he is resting comfortably with normal vital signs on cardiac telemetry. Patient care signed out to the oncoming provider, Dr. Parham at 2300 pending transfer. Patient continues to be in observation at this time. <Lino Parham MD - Last Filed: 02/13/24 01:26> Vital Signs: 02/12/24 14:18 02/12/24 14:19 02/12/24 14:59 Temperature 99.5 F Temperature Source Oral Pulse Rate 82 81 Pulse Rate [Left Radial] 82 Respiratory Rate 13 Blood Pressure 155/87 H 177/91 H Blood Pressure [Right Arm] 155/87 H Blood Pressure Mean Blood Pressure Mean [Right Arm] 109 02 Sat by Pulse Oximetry 90 L 90 L 93 L Oxygen Delivery Method Room Air Room Air Nasal Cannula 02/12/24 16:01 02/12/24 16:30 02/12/24 17:01 Temperature Temperature Source Pulse Rate 82 81 78 Pulse Rate [Left Radial] Respiratory Rate 18 Blood Pressure 198/93 H 202/85 H 161/67 H Blood Pressure [Right Arm] Blood Pressure Mean 124 98 Blood Pressure Mean [Right Arm] 02 Sat by Pulse Oximetry 96 93 L 95 Oxygen Delivery Method Nasal Cannula 02/12/24 17:30 02/12/24 18:00 02/12/24 18:31 Temperature Temperature Source Pulse Rate 76 77 72 Pulse Rate [Left Radial] Respiratory Rate Blood Pressure 156/68 H 154/74 H 161/75 H Blood Pressure [Right Arm] Blood Pressure Mean Blood Pressure Mean [Right Arm] 02 Sat by Pulse Oximetry 95 95 96 Oxygen Delivery Method Room Air Room Air 02/12/24 19:01 02/12/24 19:10 02/12/24 19:31 Temperature Temperature Source Pulse Rate 76 80 78 Pulse Rate [Left Radial] Respiratory Rate Blood Pressure 204/85 H 166/87 H 191/86 H Blood Pressure [Right Arm] Blood Pressure Mean 113 121 Blood Pressure Mean [Right Arm] 02 Sat by Pulse Oximetry 98 96 96 Oxygen Delivery Method 02/12/24 19:42 02/12/24 20:00 02/12/24 20:30 Temperature Temperature Source Pulse Rate 76 76 79 Pulse Rate [Left Radial] Respiratory Rate Blood Pressure 180/81 H 175/79 H 173/77 H Blood Pressure [Right Arm] Blood Pressure Mean 113 111 Blood Pressure Mean [Right Arm] 02 Sat by Pulse Oximetry 96 94 L 95 Oxygen Delivery Method 02/12/24 23:27 Temperature 97.8 F Temperature Source Pulse Rate 72 Pulse Rate [Left Radial] Respiratory Rate 20 Blood Pressure 135/81 Blood Pressure [Right Arm] Blood Pressure Mean Blood Pressure Mean [Right Arm] 02 Sat by Pulse Oximetry Oxygen Delivery Method Lab Data Lab Results 02/12/24 14:25: WBC 16.5 H, RBC 6.52 H, Hgb 21.0 H, Hct 64.7 H*, MCV 99.3 H, MCH 32.3 H, MCHC 32.5, RDW 16.1, Plt Count 155, MPV 9.1, Neut % (Auto) 89.9 H, Lymph % (Auto) 3.1 L, [place] % (Auto) 6.4, Eos % (Auto) 0.0 L, Baso % (Auto) 0.5, Neut # (Auto) 14.9 H, Lymph # (Auto) 0.5 L, [place] # (Auto) 1.1 H, Eos # (Auto) 0.0, Baso # (Auto) 0.1, Total Counted 100, Neutrophils % (Manual) 81 H, Band Neutrophils % 1.0, Lymphocytes % (Manual) 4 L, Monocytes % (Manual) 14 H, Platelet Estimate Normal, Giant Platelets 1+, RBC Morphology Normal, PT 11.9, INR 1.07, Sodium 140, Potassium 4.5, Chloride 107, Carbon Dioxide 24, Anion Gap 13.5, BUN 23 H, C reatinine 1.70 H, Estimated Creat Clear 48, Estimated GFR 40 L, Est GFR ( Amer) 48 L, Glucose 212 H, Calcium 8.8, Total Bilirubin 1.4 H, AST 33, ALT 33, Alkaline Phosphatase 63, Total Protein 7.1, Albumin 3.9, Globulin 3.2, Albumin/Globulin Ratio 1.2, Lipase 59, Procalcitonin 3.46 H, HIV 1&2 Antibody Rapid Nonreactive 02/12/24 14:35: Lactate 2.4 H 02/12/24 14:56: Stl Aeromonas (PCR) Not detected, Stl C. cayetanensis PCR Not detected, Stool Rotavirus (PCR) Not detected, Stl Adenov F 40/41 PCR Not detected, Stool Astrovirus (PCR) Not detected, Stool Campylobacter PCR Not detected, Stl C.difficile Tox PCR Detected A, Stool Cryptosporidium PCR Not detected, Stl E.coli Shiga Tox PCR Not detected, Stool E coli O157 PCR Not detected, Stl Enterotoxigenic E PCR Not detected, Stool EPEC (PCR) Not detected, Stool EAEC (PCR) Not detected, Stl E. histolytica PCR Not detected, Stool Giardia Lamblia PCR Not detected, Stool Salmonella PCR Not detected, Stool Sapovirus (PCR) Not detected, Stl P. shigelloides PCR Not detected, Stl Shigella/EIEC PCR Not detected, St Y.enterocolitica PCR Not detected, Stool Vibrio (PCR) Not detected, Stl Vibrio cholerae PCR Not detected, Stl Norovirus GI/GII PCR Not detected 02/12/24 18:52: Lactate 2.5 H Orders (Tests/Meds): ED MEDICATIONS Discontinued Medications Generic Name Dose Route Start Last Admin Trade Name Freq PRN Reason Stop Dose Admin Acetaminophen 1,000 mg 02/12/24 14:27 02/12/24 14:48 Acetaminophen 1,000mg/100ml Vial IV 02/12/24 14:28 1,000 mg ONCE ONE Administration Benzocaine/Butamben/Tetracaine HCl 1 gm 02/12/24 22:52 02/12/24 22:58 Tetracaine/Benzocaine/Butamben 56 Gm [place] TP 03/13/24 22:51 1 gm NEEDED PRN Administration Sore Throat Cocaine HCl 1 ml 02/12/24 14:27 02/12/24 14:45 Cocaine 4% Topical Soln 4ml Bottle TP 02/12/24 14:28 Not Given ONCE ONE Epinephrine HCl 1 mg 02/12/24 14:27 02/12/24 14:45 Epinephrine 1 Mg/Ml Ampul TP 02/12/24 14:28 Not Given ONCE ONE Lactated Ringer's 1,000 mls @ 999 mls/hr 02/12/24 14:27 02/12/24 14:48 Lactated Ringer's 1000 Ml Bag IV 02/12/24 15:27 999 mls/hr .Q1H1M ONE Administration Metronidazole 500 mg in 100 mls @ 100 mls/hr 02/12/24 16:55 02/12/24 18:01 Flagyl 500mg/100ml Ivpb IV 02/12/24 17:54 100 mls/hr ONCE ONE Administration Cefepime HCl 2 gm/ Sodium 100 mls @ 200 mls/hr 02/12/24 16:55 02/12/24 17:26 Chloride IV 02/12/24 17:24 200 mls/hr ONCE ONE Administration Vancomycin HCl 2,000 mg/ 250 mls @ 125 mls/hr 02/12/24 17:15 02/12/24 19:15 Sodium Chloride IV 02/12/24 19:14 125 mls/hr ONCE ONE Administration Norepinephrine/Dextrose 8 mg in 250 mls @ 3.75 mls/hr 02/12/24 18:36 02/12/24 19:01 Norepinephrine 8mg/250ml-D5w Premix IV 03/13/24 18:35 Not Given .Q24H SHAISTA Protocol 2 MCG/MIN Cefepime HCl 2 gm/ Sodium 100 mls @ 200 mls/hr 02/13/24 01:25 Chloride IV 02/23/24 01:24 Q8H SHAISTA Metronidazole 500 mg in 100 mls @ 100 mls/hr 02/13/24 02:00 Flagyl 500mg/100ml Ivpb IV 02/23/24 01:59 Q8H SHAISTA Lactated Ringer's 1,000 mls @ 75 mls/hr 02/12/24 22:30 02/12/24 22:48 Lactated Ringer's 1000 Ml Bag IV 03/13/24 22:29 75 mls/hr .[id number] SHAISTA Administration Iopamidol 75 ml 02/12/24 15:45 02/12/24 15:46 Iopamidol-370 (76%);100ml Bottle IV 02/12/24 15:46 75 ml ONCE ONE Administration Lidocaine HCl 1 ml 02/12/24 14:27 02/12/24 14:45 Lidocaine 2% Urojet 10ml TP 02/12/24 14:28 Not Given ONCE ONE Miscellaneous 1 each 02/12/24 17:00 Vancomycin Consult Request NOTAPPLIC 03/13/24 16:59 [facility] Morphine Sulfate 4 mg 02/12/24 22:24 Morphine 4mg/Ml Syringe IV 03/13/24 22:23 Q2HP PRN pain Ondansetron HCl 4 mg 02/12/24 14:27 02/12/24 14:48 Ondansetron 4mg/2ml Vial IV 02/12/24 14:28 4 mg ONCE ONE Administration Ondansetron HCl 4 mg 02/12/24 22:24 Ondansetron 4mg/2ml Vial IV 03/13/24 22:23 Q8HP PRN Nausea And Vomiting Sodium Chloride 10 ml 02/12/24 15:45 02/12/24 15:46 Sodium Chloride 0.9% 10ml Syr (Rad Only) IV 03/13/24 15:44 10 ml NEEDED PRN Administration Maintain IV Site ORDERS Category Date Time Status CT abdomen pelvis w con Stat Cat Scan 02/12/24 14:28 Completed KUB (single view) [XR KUB] Stat Exams 02/12/24 17:09 Completed CBC w/Auto Diff [Complete Blood Count Auto Diff] Stat Lab 02/12/24 14:25 Completed CMP [Comprehensive Metabolic Panel] Stat Lab 02/12/24 14:25 Completed Diarrhea 23 Panel, PCR Stat Lab 02/12/24 14:56 Completed HIV (1&2) Antibody Rapid Stat Lab 02/12/24 14:25 Completed Hep C Ab with Reflex to RNA Stat Lab 02/12/24 14:25 Received INR [Prothrombin Time INR] Stat Lab 02/12/24 14:25 Completed Lactic Acid Follow Up (RFLX 1) Stat Lab 02/12/24 18:52 Completed Lactic Acid Stat Lab 02/12/24 14:35 Completed Lipase Stat Lab 02/12/24 14:25 Completed Procalcitonin Stat Lab 02/12/24 14:25 Completed Blood Culture Stat Micro 02/12/24 17:03 Received Medical Decision Narrative: In summary patient is a 73-year-old male who presents to the emergency department for evaluation of vomiting and abdominal pain. Patient is hemodynamically stable upon arrival, afebrile. Physical exam is remarkable for diffuse abdominal tenderness and a taut abdomen but normal bowel sounds. His ostomy is pink and he has foul-smelling stool in the bag. Differential diagnosis includes gastroenteritis versus bowel obstruction versus gastritis versus pancreatitis etc. Initial workup will be conducted with hematologic labs, urinalysis, CT scan abdomen pelvis. Initial interventions include crystalloid bolus, acetaminophen and Zofran. Initial workup reviewed by me shows hemoconcentration but elevated white count with neutrophilic shift, normal urinalysis, elevated lactate, my informal interpretation of his CT scan abdomen pelvis shows a fluid distended stomach and proximal small bowel with decompressed small bowel distally but no definitive transition point, he has dense consolidation bibasilarly. Upon repeat evaluation and given his CT scan results I personally placed his NG tube which brought back feculent material. He had about 1500 cc immediate return after NG tube placement. Given that I had interactive discussion with the family regarding findings and need for hospital admission. They requested [facility] system given that all of his previous surgeries have been done there. I had interactive discussion with both the general surgery and hospital teams at [facility] about patient management. He has graciously been accepted in transfer to the care of Dr. Aragon of [facility]. DO Kris: Patient remained in the ED for an extended period of time while we waited for EMS transport to be available, as ambulances were out of the [facility] transferring multiple other patients. In the meantime, continued every 8 hours cefepime and Flagyl ordered as well as maintenance IV fluids at 75/hr. Patient has been stable throughout ED stay. At 1900, patient was placed in ED observation status pending transfer to outside hospital while awaiting EMS transport. The patient was provided serial reevaluations and cardiac monitoring while awaiting ultimate disposition. On multiple reassessments, he is resting comfortably with normal vital signs on cardiac telemetry. Patient care signed out to the oncoming provider, Dr. Parham at 2300 pending transfer. Patient continues to be in observation at this time. Dione LARSEN: I assumed care of the patient at the time of handoff from the prior provider. He was ultimately discharged and transferred in stable condition to outside facility. Critical Care <KLAUS Schulte - Last Filed: 02/12/24 19:38> Critical Care Time Critical Care Time: No
--- NOTE | 2024-02-12 14:28 | CT_ITS ---
FINAL REPORT TECHNIQUE: After the administration of intravenous contrast, axial images were obtained through the abdomen and pelvis by computed tomography. The study was performed with techniques to keep radiation dose as low as reasonably achievable, (ALARA). Individual dose reduction techniques using automated exposure control or adjustment of mA and/or kV according to the patient's size were employed. CLINICAL HISTORY: Acute abdominal pain, hx of previous colectomy COMPARISON: None FINDINGS: Abdomen: There is patchy airspace opacity in the inferior right middle lobe and right lower lobe consistent with acute pneumonia. Fluid is seen in the distal esophagus. The stomach is mostly distended with fluid. The liver parenchyma is homogeneous. The gallbladder is absent. The common bile duct is distended. The distal common duct is ectatic measuring up to 2.0 cm in diameter. The spleen and pancreas appear unremarkable. There is a left adrenal mass measuring 1.5 cm in diameter best seen on image 33 of series 3, indeterminate. There are benign-appearing cysts in the right kidney measuring up to 2.7 cm. An IVC filter is present. Abdominal aortic endograft is present. A right anterior abdominal wall ostomy is present. Pelvis: There are abnormally dilated loops of proximal small bowel measuring up to 4.9 cm in diameter. The distal small bowel is relatively decompressed. Findings are concerning for small bowel obstruction. The exact point of obstruction is not clear. The appendix is not identified. The urinary bladder is unremarkable. There is fusion hardware bridging the lower lumbar spine at the L4-5 level. IMPRESSION: Proximal small bowel obstruction. Dense right middle lobe and lower lobe infiltrates consistent with acute pneumonia or aspiration. Distended distal common duct. Left adrenal mass, indeterminate. Follow-up adrenal mass protocol CT may be of value. Postoperative changes from prior abdominal aortic endograft, IVC filter, and L4-5 fusion. Reviewed, Interpreted and Dictated by Juaquin Rodgers MD Transcribed by Caryn Nesbitt Authenticated and [facility]
[2024-02-12 14:40] LABS: Basophils # 0.1 K/mm3 (0-0.2)
[2024-02-12 14:43] LABS: MANUAL DIFFERENTIAL MANUAL DIFFERENTIAL (MANUAL DIFF)
[2024-02-12 14:46] LABS: INR 1.07 (0.9-1.1); Prothrombin Time 11.9 seconds (10.1-12.5)
[2024-02-12] MEDS: LACTATED RINGERS 1000ML 1,000 ML 999 ML IV (14:48)
[2024-02-12] MEDS: ACETAMINOPHEN 1,000MG/100ML VIAL 1000 MG IV (14:48)
[2024-02-12] MEDS: ONDANSETRON 4MG/2ML VIAL 4 MG IV (14:48)
[2024-02-12 14:52] LABS: Alanine Aminotransferase 33 U/L (12-78); Albumin Level 3.9 g/dl (3.5-5.0); Albumin/Globulin Ratio 1.2 (1.1-1.8); Alkaline Phosphatase 63 U/L (38-126); Aspartate Amino Transferase 33 U/L (17-59); Bilirubin,Total 1.4 mg/dl (0.2-1.3); Blood Urea Nitrogen 23 mg/dl (9-20); Calcium 8.8 mg/dl (8.4-10.2); Carbon Dioxide 24 mmol/L (22.0-30.0); Creatinine Clearance Estimated 48 mL/min (50-200); Estimated Glomerular Filt Rate 40 ml/min (>60); GFR (African American) 48 ML/MIN (>60); Globulin 3.2 g/dL (1.3-3.2); Glucose 212 mg/dl (74-100); Lipase 59 U/L (23-300); Total Protein,Serum 7.1 g/dl (6.3-8.2)
[2024-02-12 15:01] LABS: Adenovirus F 40/41, stool Not Detected (NotDetected); Astrovirus Not Detected (NotDetected); Campylobacter Not Detected (NotDetected); Cryptosporidium Not Detected (NotDetected); Cyclospora Cayetanesis Not Detected (NotDetected); Entamoeba histolytica Not Detected (NotDetected); Enteroaggregative E coli Not Detected (NotDetected); Enteropathogenic E coli Not Detected (NotDetected); Enterotoxigenic E coli Not Detected (NotDetected); Giardia lamblia Not Detected (NotDetected); Norovirus Not Detected (NotDetected); Plesimonas Shigalloides, PCR Not Detected (NotDetected); Rotavirus A Not Detected (NotDetected); Salmonella, PCR Not Detected (NotDetected); Sapovirus Not Detected (NotDetected); Shiga-like toxin E coli Not Detected (NotDetected); Shigella Enterovasive E coli Not Detected (NotDetected); Vibrio Cholerae Not Detected (NotDetected); Vibrio, PCR Not Detected (NotDetected); Yersinia Entercolitica, PCR Not Detected (NotDetected)
[2024-02-12 15:18] LABS: Anion Gap 13.5 mEq/L (5-15); Chloride 107 mmol/L (98-107); Potassium 4.5 mmoL/L (3.5-5.1); Sodium 140 mmol/L (136-145)
[2024-02-12 15:23] LABS: Lactic Acid 2.4 mmol/L (0.7-2.1)
[2024-02-12 15:37] LABS: Giant Platelets 1+; Lymphocytes % 4 % (10-50); Monocytes % 14 % (2-9); Neutrophils % 81 % (42-76); Platelet Estimate Normal; RBC Morphology Normal; Total Cells Counted 100
[2024-02-12 15:46] LABS: Hematocrit 64.7 % (42.0-52.0); Red Blood Count 6.52 M/mm3 (4.60-6.20); White Blood Count 16.5 K/mm3 (4.8-10.8)
[2024-02-12] MEDS: SODIUM CHLORIDE 0.9% 10ML SYR (RAD ONLY) 10 ML IV (15:46)
[2024-02-12] MEDS: IOPAMIDOL-370 (76%);100ML BOTTLE 75 ML IV (15:46)
[2024-02-12 15:47] LABS: Basophils % 0.5 % (0.1-2.0); Lymphocytes # 0.5 K/mm3 (0.7-4.5); Lymphocytes % 3.1 % (10-50); Mean Corpuscular HGB Conc 32.5 g/dL (31.8-35.4); Mean Corpuscular Hemoglobin 32.3 pg (27.0-31.2); Mean Corpuscular Volume 99.3 fl (80-94); Mean Platelet Volume 9.1 fl (7.4-10.4); Monocytes # 1.1 K/mm3 (0.1-1.0); Monocytes % 6.4 % (1.7-9.3); Neutrophils # 14.9 K/mm3 (1.8-7.8); Neutrophils % 89.9 % (37.0-80.0); Platelet Count 155 K/mm3 (142-424); Red Cell Distribution Width 16.1 % (11.5-17.5)
[2024-02-12 16:22] LABS: HIV (1&2) Antibody Rapid NONREACTIVE (NONREACTIVE)
[2024-02-12 16:28] LABS: Procalcitonin 3.46 ng/mL (0.0-2.0)
--- NOTE | 2024-02-12 16:50 | PC.NURSE ---
after NG tube inserted pt had copious amounts of dark foul smelling emesis. 900 mL emptied from canister.
--- NOTE | 2024-02-12 17:09 | XR_ITS ---
PROCEDURE INFORMATION: Exam: XR Abdomen Exam date and time: 02/12/2024 5:13 PM Age: 73 years old Clinical indication: Device placement; Gi device; Nasogastric tube; Additional info: Ng tube placement TECHNIQUE: Imaging protocol: Radiologic exam of the abdomen. Views: Frontal supine view of the abdomen. 1 View. COMPARISON: CT ABDOMEN PELVIS W CON 02/12/2024 3:33 PM FINDINGS: Tubes, catheters and devices: Enteric tube in place, tip and side port project over the stomach. Heart/Mediastinum: Visualized portions of the heart, lungs, pleural spaces, and osseous structures are unchanged. Gastrointestinal tract: Stable bowel-gas pattern. Intraperitoneal space: There are right upper quadrant surgical clips suggesting prior cholecystectomy. Vasculature: There is an IVC filter in place. There is an aortic endograft in place. Bones/joints: There is lower lumbar surgical hardware. Soft tissues: There are upper abdominal surgical clips. IMPRESSION: Radiographically appropriate position of enteric tube. COMMENTS: For patients with an IVC filter, recommend assessment for a management plan for the patient's IVC filter. If there is no established management plan, recommend referral to an interventional clinician on a nonemergent basis for evaluation.
[2024-02-12 17:17] LABS: Clostridium Difficile A/B, PCR Detected (NotDetected)
--- NOTE | 2024-02-12 17:17 | PC.NURSE ---
C-DIFF REPORTED IN STOOL SPECIMEN. BOO TATE NOTIFIED
--- NOTE | 2024-02-12 17:17 | PC.NURSE ---
Pt provied with warm blanket, pillow, and socks. No other needs voiced at this time. Visitors at BS and call light within reach.
--- NOTE | 2024-02-12 17:20 | PC.NURSE ---
CALLED [facility] TO TRANSFER [facility] STATES THEY HAVE NO BEDS AVAILABLE AND WILL NOT PLACE A SURGICAL PT ON WAITLIST
[2024-02-12] MEDS: CEFEPIME HCL 2 GM in 0.9 % SODIUM CHLORIDE 100 ML IV (17:26)
--- NOTE | 2024-02-12 17:48 | PC.NURSE ---
CALLING [facility] THEY ARE PAGING SURGEON AND WILL CALL BACK
[2024-02-12] MEDS: METRONIDAZ/SOD CHL 500 MG/100 ML PIGGYBACK 100 MG IV (18:01)
[2024-02-12 18:39] LABS: Reflex Lactic Add Lactic Reflex
[2024-02-12] MEDS: VANCOMYCIN HCL 2,000 MG in 0.9 % SODIUM CHLORIDE 250 ML 125 MG IV (19:15)
[2024-02-12 19:45] LABS: Lactic Acid Follow Up (RFLX 1) 2.5 mmol/L (0.7-2.1)
[2024-02-12 21:12] LABS: Reflex Lactic (2 hrs) Add Lactic Reflex
--- NOTE | 2024-02-12 22:17 | PC.NURSE ---
pt voided 400ml
[2024-02-12] MEDS: LACTATED RINGERS 1000ML 1,000 ML 75 ML IV (22:48)
[2024-02-12] MEDS: TETRACAINE/BENZOCAINE/BUTAMBEN 56 GM SPRAY TP (22:58)
--- NOTE | 2024-02-13 23:41 | PC.NURSE ---
Received a call from lab in regards to Anaerobic positive culture from positive gram stain being positive gram stain rods and his PCR did not show any results. Info was relayed to MCKENNA Julian.
[2024-02-14 09:32] LABS: HCV Ab Non Reactive (Non Reactive)
--- NOTE | 2024-02-16 10:40 | PC.NURSE ---
Faxed blood culture results to [facility] , I notified [facility] of the impending fax and she will forward to the appropriate provider.
== END 2024-02-12 23:37 | disposition short-term general hospital (02) ==
PROVIDERS: Emergency Medicine; Physician Assistant; Emergency Provider Emergency Medicine; PCP Internal Medicine
DX: J96.01 Acute respiratory failure with hypoxia (principal); K56.609 Unspecified intestinal obstruction, unspecified as to partial versus complete obstruction; R10.9 Unspecified abdominal pain; R11.0 Nausea; A04.72 Enterocolitis due to Clostridium difficile, not specified as recurrent
CPT/HCPCS: 74018; 74177; 80053; 83605; 83690; 84145; 85007; 85025; 85027; 85610; 86803; 87040; 87077; 87186; 87389; 87507; 96361; 96365; 96366; 96367; 96368; 96375; 96376; 99285; J0131; J2405; J3370; J7120; Q9967

== ENCOUNTER 2024-09-23 13:13 | Inpatient (IN) | payer OTHER, SELFPAY ==
[2024-09-23] VITALS (19 sets, daily range): BP systolic 108–156; BP diastolic 47–81; PULSE 64–96; RESP 13–31; TEMP 36.6–38.2; O2SAT 83–100; BMI 25.0; BMI 23.6
--- NOTE | 2024-09-23 13:18 | ECG_ITS ---
APPROVED REPORT Exam: Resting ECG HR:94 bpm ECG Measurements Heart Rate 94 AXES SC 183 P 74 QRSd 153 QRS -59 QT 387 T 85 QTc 438 Conclusion Sinus rhythm Left axis deviation Left bundle branch block Sgarbossa negative Electronically signed by : GUERO MACIEL, 09/24/2024 07:11:37
--- NOTE | 2024-09-23 13:24 | CT_ITS ---
FINAL REPORT TECHNIQUE: The patient was injected with IV contrast. Axial images were obtained through the chest in a PE protocol. 3-D reconstruction images were also performed. Individualized dose reduction techniques using automated exposure control or adjustment of the MA and/or KV according to patient's size were employed. CLINICAL HISTORY: hypoxemia, soa, resp failure COMPARISON: None FINDINGS: Mediastinal vasculature is adequately opacified. There is a tiny right lower lobe pulmonary artery filling defect, seen on images #[id number] of series 5. There is no aortic dissection. There is no axillary adenopathy. There is moderate mediastinal adenopathy in the right paratracheal, prevascular, and subcarinal regions. The heart size is normal. Moderate bilateral pleural effusions are present along with bibasilar consolidation. There are extensive airspace opacities in the bilateral upper lobes, which likely represent pneumonia. IMPRESSION: Tiny right lower lobe pulmonary artery filling defect as described. Moderate mediastinal adenopathy, moderate bilateral pleural effusions and bibasilar consolidation is present as well as extensive airspace opacities in the bilateral upper lobes, which likely represent pneumonia. Recommend follow-up CT. Reviewed, Interpreted and Dictated by Juaquin Rodgers MD Transcribed by Lynette Collazo Authenticated and [facility]
[2024-09-23 13:26] LABS: VBG Base Excess -2.9 mmol/L (-2.4-2.3); VBG HCO3 23.2 mmol/L (23-30); VBG Oxygen Saturation 57.4 % (50-70); VBG PCO2 45.6 mmol/L (35-51); VBG PH 7.32 mmol/L (7.31-7.41); VBG PO2 31.1 mmol/L (28-40); VBG Total CO2 24.6 mmol/L (23-27)
[2024-09-23 13:27] LABS: Lactate Venous 2.3 mmol/L (0.4-2.0)
--- NOTE | 2024-09-23 13:27 | CT_ITS ---
FINAL REPORT TECHNIQUE: After the administration of intravenous contrast, axial images were obtained through the abdomen and pelvis by computed tomography. This study was performed with technique to keep radiation doses as low as reasonably achievable, (ALARA). Individualized dose reduction techniques using automated exposure control or adjustment of the MA and/or KV according to the patient's size were employed. CLINICAL HISTORY: decreased ostomy output, AMS COMPARISON: 02/12/2024 FINDINGS: Abdomen: The lung bases demonstrate moderate bilateral pleural effusions and bibasilar consolidation, new from prior exam. The liver is normal in size and attenuation. Patient is status postcholecystectomy. There are calcified granulomas in the spleen. There is a left adrenal adenoma measuring 1.8 cm in diameter, stable from prior exam. The pancreas is unremarkable. There is a benign right renal cyst measuring 2.9 cm in diameter. The aorta is normal in caliber. There is no free fluid or adenopathy. There is an abdominal aortic endograft in place and IVC filter. There is streak artifact arising from posterior fusion hardware. A right anterior abdominal wall colostomy is present. Pelvis: There are postoperative changes of the left colectomy. Moderate stool is seen in the bowel extending to the ostomy. There is no definite obstructive pattern. The appendix is not identified. There is no free fluid or adenopathy. IMPRESSION: New pleural effusions and consolidation. Stable adrenal nodule. Large amount of stool or bacterial overgrowth in the bowel extending to the ostomy. Reviewed, Interpreted and Dictated by Juaquin Rodgers MD Transcribed by Ghislaine Ventura Authenticated and [facility]
--- NOTE | 2024-09-23 13:27 | XR_ITS ---
FINAL REPORT CLINICAL HISTORY: AMS, hypxemia COMPARISON: None FINDINGS: The heart size is mildly enlarged. Sternotomy wires are present. Mild opacification in the periphery of both lungs is favored to be chronic. There are no pleural effusions. There is no pneumothorax. There is no osseous abnormality. IMPRESSION: Mild bilateral opacities, favored to be chronic but comparison with any available prior exams recommended. If no prior available, recommend follow-up. Reviewed, Interpreted and Dictated by Juaquin Rodgers MD Transcribed by Caryn Nesbitt Authenticated and . [facility]
[2024-09-23] MEDS: IPRATROPIUM/ALBUTEROL 3 ML NEB 6 ML IH (13:38)
[2024-09-23] MEDS: ALBUTEROL 0.083% 2.5 MG/3 ML NEB 20 MG IH (13:39)
[2024-09-23 13:43] LABS: Basophils # 0.1 K/mm3 (0-0.2); Basophils % 0.6 % (0.1-2.0); Eosinophils # 0.1 Kmm3 (0.0-0.4); Eosinophils % 0.8 % (0.1-12.0); Hematocrit 42.3 % (42.0-52.0); Hemoglobin 13.2 g/dL (14.1-18.0); Lymphocytes # 1.4 K/mm3 (0.7-4.5); Lymphocytes % 8.7 % (10-50); Mean Corpuscular HGB Conc 31.2 g/dL (31.8-35.4); Mean Corpuscular Hemoglobin 27.6 pg (27.0-31.2); Mean Corpuscular Volume 88.3 fl (80-94); Mean Platelet Volume 9.7 fl (7.4-10.4); Monocytes # 1.1 K/mm3 (0.1-1.0); Monocytes % 6.8 % (1.7-9.3); Neutrophils # 13.5 K/mm3 (1.8-7.8); Neutrophils % 82.7 % (37.0-80.0); Nucleated Red Blood Cells # 0 10^3/uL; Nucleated Red Blood Cells % 0 %; Platelet Count 364 K/mm3 (142-424); Red Blood Count 4.79 M/mm3 (4.60-6.20); Red Cell Distribution Width 16.5 % (11.5-17.5); White Blood Count 16.3 K/mm3 (4.8-10.8)
[2024-09-23 13:44] LABS: Albumin Level 3.7 g/dl (3.5-5.0); Chloride 107 mmol/L (98-107); Potassium 4.6 mmoL/L (3.5-5.1); Sodium 138 mmol/L (136-145)
[2024-09-23 13:46] LABS: Blood Urea Nitrogen 18 mg/dl (9-20); Creatinine Clearance Estimated 37 mL/min (50-200); Estimated Glomerular Filt Rate 31 ml/min (>60); GFR (African American) 37 ML/MIN (>60)
[2024-09-23 13:47] LABS: Alanine Aminotransferase 17 U/L (12-78); Alkaline Phosphatase 117 U/L (38-126); Anion Gap 11.6 mEq/L (5-15); Aspartate Amino Transferase 24 U/L (17-59); Bilirubin,Total 1.7 mg/dl (0.2-1.3); Calcium 8.9 mg/dl (8.4-10.2); Carbon Dioxide 24 mmol/L (22.0-30.0); Globulin 3.6 g/dL (1.3-3.2); Glucose 195 mg/dl (74-100); Total Protein,Serum 7.3 g/dl (6.3-8.2)
[2024-09-23 13:48] LABS: Lactic Acid 1.9 mmol/L (0.7-2.1)
--- NOTE | 2024-09-23 13:48 | [facility].EDCP ---
Discharge Plan Disposition Patient Disposition: Admitted Chief Complaint: Shortness of Breath/Dyspnea Prescriptions Prescriptions: No Action clopidogrel 75 mg Tablet 75 mg PO DAILY bupropion HCl 100 mg Tablet 100 mg PO BID amlodipine 10 mg Tablet 10 mg PO DAILY aspirin 81 mg Capsule 81 mg PO DAILY folic acid 1 mg Tablet 2 mg PO DAILY Rx Instructions: everyday but friday empagliflozin 25 mg Tablet 25 mg PO DAILY cetirizine 10 mg Tablet 5 mg PO DAILY metoprolol tartrate 100 mg Tablet 100 mg PO BID tramadol 50 mg Tablet 50 mg PO DAILY glimepiride 2 mg Tablet 2 mg PO DAILY famotidine 20 mg Tablet 20 mg PO DAILY trazodone 100 mg Tablet 100 mg PO DAILY PRN (Reason: Sleep) hydrocortisone 2.5 % Cream 1 applic TOPICAL QID PRN (Reason: sleep) methimazole 10 mg Tablet See Rx Instructions .ROUTE .COMPLEX Rx Instructions: 10 mg orally Friday/Friday/Friday memantine 10 mg Tablet 10 mg PO BID pregabalin 150 mg Capsule 150 mg PO BID Referrals Follow up/Referrals: Provider,Referral, MD [Primary Care Provider] - See instructions Clinical Impressions Clinical Impression: Acute hypoxemic respiratory failure, New onset of congestive heart failure, Pulmonary edema, Pleural effusion Print Language Print Language: Chinese Discharge ED Provider: Richard Ndiaye HPI General Chief Complaint: Shortness of Breath/Dyspnea Stated Complaint: weakness Time Seen by Provider: 09/23/24 13:15 Mode of Arrival: EMS Source of Information: Patient, Relative and EMS Description of Symptoms (Recalled from ER Triage Doc. by RN): EMS reports they were called out for SOA, on arrival pt's 02 72% on RA. pt placed on CPAP by EMS pt 02 83% on arrival. pt alerted but only oriented to self. per pt's daughter he has hx dementia an is slightly more confused than baseline. pt reports productive cough with roy sputum and SOA. pt denies any pain. pt is RA at home. History of Present Illness HPI narrative: Please note that above description of symptoms, in this electronic medical record under categorization of recalled from ER triage doctor by RN are reflective of an initial nursing assessment, however, is not reflective of my full history and physical exam that was personally taken and clarified. Consequentially, this preceding description of symptoms, which may include the patient's categorized chief complaint in the EMR, do not reflect my personal clinical impression, and the ultimate description of history of present illness and patient stated complaints should be deferred to this section of the note. Unless stated otherwise or congruent with this section of the note, additional signs, symptoms, or incongruence should be interpreted as inaccurate with my clinical impression. Related Data Home Medications ?Medication ?Instructions ?Recorded ?Confirmed amlodipine 10 mg tablet 10 mg PO DAILY 02/12/24 02/12/24 aspirin 81 mg capsule 81 mg PO DAILY 02/12/24 02/12/24 bupropion HCl 100 mg tablet 100 mg PO BID 02/12/24 02/12/24 cetirizine 10 mg tablet 5 mg PO DAILY 02/12/24 02/12/24 clopidogrel 75 mg tablet 75 mg PO DAILY 02/12/24 02/12/24 empagliflozin 25 mg tablet 25 mg PO DAILY 02/12/24 02/12/24 famotidine 20 mg tablet 20 mg PO DAILY 02/12/24 02/12/24 folic acid 1 mg tablet 2 mg PO DAILY 02/12/24 02/12/24 glimepiride 2 mg tablet 2 mg PO DAILY 02/12/24 02/12/24 hydrocortisone 2.5 % topical cream 1 applic topical QID PRN sleep 02/12/24 02/12/24 memantine 10 mg tablet 10 mg PO BID 02/12/24 02/12/24 methimazole 10 mg tablet See Rx Instructions .Route .COMPLEX 02/12/24 02/12/24 metoprolol tartrate 100 mg tablet 100 mg PO BID 02/12/24 02/12/24 pregabalin 150 mg capsule 150 mg PO BID 02/12/24 02/12/24 tramadol 50 mg tablet 50 mg PO DAILY 02/12/24 02/12/24 trazodone 100 mg tablet 100 mg PO DAILY PRN Sleep 02/12/24 02/12/24 Allergies Allergy/AdvReac Type Severity Reaction Status Date / Time ibuprofen Allergy Unknown Verified 02/12/24 14:26 Penicillins Allergy Unknown Verified 02/12/24 14:40 Sulfa (Sulfonamide Allergy Unknown Verified 02/12/24 14:40 Antibiotics) [facility] Disclaimer: The information contained in this section may have been updated after the patient was seen, as this information can be updated by other users. Social History (Updated 02/12/24 @ 19:38 by KLAUS Schulte) Smoking Status: Former smoker alcohol intake: never current occupational status: retired Travel in the last 8 weeks?: None Have you lived/traveled outside [place] in past 30 days?: No Contact w/someone who lives/traveled outside US past 30 days?: No Exposure to someone with infectious disease in past 14 days?: No Do you have a fever (greater than 100.4 F or 38 C)?: No Have you tested positive for COVID-19?: No Exposed to someone with COVID-19 in past 14 days?: No Do you have a sore throat?: No Do you have a cough?: No Do you have any weakness?: Yes Do you have any diarrhea?: No Are you experiencing any unusual bleeding?: No Do you have any muscle aches/pain?: No Do you have any abdominal pain?: No Are you experiencing loss of taste or smell?: No ROS Obtained: Yes All systems reviewed & no additional complaints except as documented Physical Exam General General appearance: alert and in distress (Severe respiratory distress) Neck Neck exam: Present trachea midline Chest Chest inspection: Present normal inspection and symmetric chest wall rise Respiratory Respiratory exam: Present respiratory distress, wheezes, accessory muscle use, prolonged expiratory phase and other (On CPAP still hypoxic); Absent stridor Cardiovascular Cardiovascular exam: Present regular rate, normal rhythm and other (Pulses equal and symmetric in upper and lower extremities) Extremities Exam Extremities exam: Absent edema Neurological Exam Neurological exam: Present alert and CN II-XII intact; Absent oriented X3 (Oriented to person, month, situation, not location (states he is at [facility])) Skin Skin exam: Present warm and dry; Absent cyanosis, diaphoresis or pallor HEART Score HEART Score HEART Score assessment performed?: Yes History (anamnesis): Slightly suspicious ECG: Non-specific disturbance Age: >65 years Risk factors: 3 or more risk factors Troponin: > 3x normal limit HEART Score: 7 Critical Care Critical Care Time Critical Care Time: Yes (Cardiac, pulmonary) Attestation: On 09/23/24, the high probability of a clinically significant, sudden or life threatening deterioration of the following system(s) required my full and direct attention, intervention and personal management. The time I documented below is in addition to time spent performing reported procedures but includes the following listed in this critical care notation. Total Time Total Critical Care Time: 60 Medical Decision Making Medical Records Medical records reviewed: Yes I reviewed the patient's medical records. Markus Inquiry Pt receiving controlled substance: No Markus was queried for this patient: No Vital Signs Vital Signs: 09/23/24 13:28 09/23/24 13:30 09/23/24 13:41 Temperature 100.7 F H Temperature Source Axillary Pulse Rate 83 Pulse Rate [Right] 94 H Respiratory Rate 31 H 21 Blood Pressure 156/73 H Blood Pressure [Right Arm] 154/72 H Blood Pressure Mean Blood Pressure Mean [Right Arm] 99 Blood Pressure Source [Right Arm] Automatic Cuff Blood Pressure Position [Right Arm] Supine 02 Sat by Pulse Oximetry 83 L 100 Oxygen Delivery Method CPAP Fraction of Inspired Oxygen 50 09/23/24 13:41 09/23/24 14:00 09/23/24 14:30 Temperature Temperature Source Pulse Rate 82 78 85 Pulse Rate [Right] Respiratory Rate 18 19 Blood Pressure 141/72 H 156/73 H Blood Pressure [Right Arm] Blood Pressure Mean Blood Pressure Mean [Right Arm] Blood Pressure Source [Right Arm] Blood Pressure Position [Right Arm] 02 Sat by Pulse Oximetry 100 95 Oxygen Delivery Method BiPAP Fraction of Inspired Oxygen 09/23/24 14:45 Temperature Temperature Source Pulse Rate 80 Pulse Rate [Right] Respiratory Rate 17 Blood Pressure 135/60 Blood Pressure [Right Arm] Blood Pressure Mean 96 Blood Pressure Mean [Right Arm] Blood Pressure Source [Right Arm] Blood Pressure Position [Right Arm] 02 Sat by Pulse Oximetry 97 Oxygen Delivery Method Fraction of Inspired Oxygen Lab Data Labs: Lab Results 09/23/24 13:20: WBC 16.3 H, RBC 4.79, Hgb 13.2 L, Hct 42.3, MCV 88.3, MCH 27.6, MCHC 31.2 L, RDW 16.5, Plt Count 364, MPV 9.7, Neut % (Auto) 82.7 H, Lymph % (Auto) 8.7 L, Lamar % (Auto) 6.8, Eos % (Auto) 0.8, Baso % (Auto) 0.6, Neut # (Auto) 13.5 H, Lymph # (Auto) 1.4, Lamar # (Auto) 1.1 H, Eos # (Auto) 0.1, Baso # (Auto) 0.1, PT 11.7, INR 1.05, APTT 30.2, Sodium 138, Potassium 4.6, Chloride 107, Carbon Dioxide 24, Anion Gap 11.6, BUN 18, Creatinine 2.10 H, Estimated Creat Clear 37, Estimated GFR 31 L, Est GFR ( Amer) 37 L, Glucose 195 H, Lactate 1.9, Calcium 8.9, Magnesium 2.0, Total Bilirubin 1.7 H, AST 24, ALT 17, Alkaline Phosphatase 117, Troponin I 0.14 H, NT-Pro-B Natriuret Pep 9930 H, Total Protein 7.3, Albumin 3.7, Globulin 3.6 H, Albumin/Globulin Ratio 1.0 L 09/23/24 13:23: VBG pH 7.32, VBG pCO2 45.6, VBG pO2 31.1, VBG HCO3 23.2, VBG Total CO2 24.6, VBG O2 Saturation 57.4, VBG Base Excess -2.9 L, VBG Lactic Acid 2.3 H 09/23/24 13:20 09/23/24 13:20 Response Orders (Tests/Meds): ED MEDICATIONS Generic Name Dose Route Start Last Admin Trade Name Freq PRN Reason Stop Dose Admin Bumetanide 1 mg 09/23/24 16:00 Bumetanide 1mg/4ml Vial IV 10/23/24 15:59 BIDL SHAISTA Vancomycin/PEG/NADA/Lysine/Water 1.5 gm in 300 mls @ 150 mls/hr 09/23/24 13:45 09/23/24 14:53 Vancomycin 1.5gm/300ml (Peg) Premix IV 09/23/24 15:44 150 mls/hr ONCE ONE Administration Miscellaneous 1 each 09/23/24 13:30 09/23/24 14:53 Vancomycin Consult Request NOTAPPLIC 10/23/24 13:29 1 each CONSULT [facility] Administration Discontinued Medications Generic Name Dose Route Start Last Admin Trade Name Freq PRN Reason Stop Dose Admin Albuterol Sulfate 20 mg 09/23/24 13:24 09/23/24 13:39 Albuterol 0.083% 2.5 Mg/3 Ml Neb IH 09/23/24 13:25 20 mg ONCE ONE Administration Albuterol/Ipratropium 3 ml 09/23/24 13:27 09/23/24 13:40 Ipratropium/Albuterol 3 Ml [facility] 09/23/24 13:28 Not Given ONCE ONE Albuterol/Ipratropium 6 ml 09/23/24 13:24 09/23/24 13:38 Ipratropium/Albuterol 3 Ml [facility] 09/23/24 13:25 6 ml ONCE ONE Administration Albuterol/Ipratropium 3 ml 09/23/24 13:28 09/23/24 13:40 Ipratropium/Albuterol 3 Ml [facility] 09/23/24 13:29 Not Given ONCE ONE Furosemide 60 mg 09/23/24 14:36 09/23/24 14:37 Furosemide 40mg/4ml Vial IV 09/23/24 14:37 60 mg ONCE ONE Administration Magnesium Sulfate 2 gm in 50 mls @ 50 mls/hr 09/23/24 13:24 09/23/24 14:37 Magnesium Sulfate 2gm/50ml Premix IV 09/23/24 14:23 50 mls/hr ONCE ONE Administration Cefepime HCl 2 gm/ Sodium 100 mls @ 200 mls/hr 09/23/24 13:24 09/23/24 14:54 Chloride IV 09/23/24 13:53 200 mls/hr ONCE ONE Administration Lactated Ringer's 1,000 mls @ 999 mls/hr 09/23/24 14:00 Lactated Ringer's 1000 Ml Bag IV 09/23/24 15:00 .Q1H1M ONE Iopamidol 85 ml 09/23/24 14:13 09/23/24 14:14 Iopamidol-370 (76%);100ml Bottle IV 09/23/24 14:14 85 ml ONCE ONE Administration Sodium Chloride 50 ml 09/23/24 14:13 09/23/24 14:14 0.9 % Sodium Chloride 50 Ml Vial IV 09/23/24 14:14 50 ml ONCE ONE Administration Sodium Chloride 10 ml 09/23/24 14:13 09/23/24 14:14 Sodium Chloride 0.9% 10ml Syr (Rad Only) IV 09/23/24 14:14 10 ml ONCE ONE Administration ORDERS Category Date Time Status CT abdomen pelvis w con Stat Cat Scan 09/23/24 13:[address] angio chest PE protocol Stat Cat Scan 09/23/24 13:24 Taken Cardiology Consult [Consult to Cardiology] [CONS] Cons 09/23/24 14:54 Active Routine XR chest portable Stat Exams 09/23/24 13:27 Taken Complete Blood Count Auto Diff AMLAB Lab 09/24/24 06:00 Ordered Complete Blood Count Auto Diff Stat Lab 09/23/24 13:20 Completed Comprehensive Metabolic Panel AMLAB Lab 09/24/24 06:00 Ordered Comprehensive Metabolic Panel Stat Lab 09/23/24 13:20 Completed Lactic Acid Stat Lab 09/23/24 13:20 Completed Magnesium AMLAB Lab 09/24/24 06:00 Ordered Magnesium Stat Lab 09/23/24 13:20 Completed NT Pro Brain Natriuretic Pep. Stat Lab 09/23/24 13:20 Completed PT INR [Prothrombin Time INR] Stat Lab 09/23/24 13:20 Completed PTT [Activated Partial Thrombo Time] Stat Lab 09/23/24 13:20 Completed Troponin I Q3H Lab 09/23/24 16:30 Ordered Troponin I Q3H Lab 09/23/24 19:30 Ordered Troponin I Stat Lab 09/23/24 13:20 Completed Blood Culture Stat Micro 09/23/24 14:36 Received Venous Blood Gas Routine RT 09/23/24 13:23 Completed Venous Blood Gas Stat RT 09/23/24 13:28 Ordered CA echo doppler complete Routine Y 09/23/24 14:58 Ordered MDM Narrative Medical Decision Narrative: 74-year-old male history of hypertension, hyperlipidemia, diabetes, dementia, COPD not still smoking and not on home oxygen, presenting with shortness of breath. Patient has been feeling progressively worse for the last couple of days, per EMS. EMS was called by family because patient was largely unresponsive. EMS arrived, patient's oxygen saturation was in the 70s, placed on CPAP, given steroids and DuoNebs and brought here. EMS states that patient has perked up quite a bit and is answering questions by the time they got here. Patient denies any chest pain, nausea, vomiting, but does feel short of breath and has had a cough. No vomiting, abdominal pain, having less ostomy output. Family arrived shortly after states that she is not POA, but patient is DNR, called POA. POA states that patient is okay with the breathing tube as long as it is not long-term. It was explained that this cannot be determined at this time and they were agreeable to breathing tube if needed. Patient has minimal bilateral breath sounds, but diffuse quiet wheezes and retractions, prolonged expiratory phase, speaking in one-word sentences with CPAP in place. Patient hypoxemic to the low 80s, 82 to 83% on CPAP. Respiratory therapy was contacted and patient was placed on BiPAP. 16/6, 100% FiO2, patient came up to 100% and work of breathing improved, as did patient's mental status and skin color. Patient appears more pink than he does pale. Cardiac exam without murmurs gallops or rubs, no lower extremity edema. Differential includes pneumonia, COPD exacerbation, bronchitis, pneumothorax, PE, ACS, OR, CHF, among others. Patient was given DuoNebs, albuterol continuous, BiPAP for symptomatic management and correction of underlying abnormalities. Patient was given Solu-Medrol with EMS crew that brought him in. Patient was also empirically antibiosis with vancomycin and cefepime. Sepsis fluids were given as well. Patient placed on continuous cardiac monitoring and continuous pulse ox with initial blood pressure 154/72, heart rate for, saturation 83% on CPAP 50% FiO2. Independent interpretation of EKG shows sinus rhythm 94 bpm with MD interval 183, QRS prolonged at 153, QTc 438. Sgarbossa negative, no obvious acute ischemic changes. Leftward axis with left bundle branch block morphology. Workup independently interpreted and significant for white count of 16.3. VBG with pH 7.32/CO2 normal at 45/bicarb normal at 23 with mildly elevated lactate of 2.3, which I feel is a function of not being placed on ice prior to transport upstairs. Chemistry with what appears to be MARJORIE on CKD with creatinine 2.1 up from baseline normal around 1.7. Troponin 0.14. Patient was given 60 mg IV Lasix because Lasix na?ve also to augment fluid status with BiPAP. On independent interpretation of imaging, patient has no obvious blood clot in the pulmonary arteries, but does have bilateral pneumonia, bilateral pleural effusions, and pulmonary edema. See radiology read for full review of final results. Heart score 7. On reevaluation, patient appears pink, much better and in less respiratory distress. Tissue perfusion reassessment performed within 3 hours, patient mentating, following commands, good capillary refill and hemodynamically stable. At this time, I feel patient is appropriate for admission. Hospitalist was contacted and case was discussed at length, patient to be admitted for new onset CHF, hypoxemic respiratory failure, NSTEMI.because patient high risk for clinical decompensation, deemed appropriate for inpatient admission. Results were relayed to patient who voiced understanding and patient was agreeable to inpatient admission and management. Patient was admitted to the hospital for further definitive management. Film Coater disclaimer Much of this encounter note is an electronic urogynecology physician spoken language to printed text. Electronic urogynecology physician of the spoken language may permit errors. Although I have reviewed the note, some errors may still exist.
[2024-09-23 13:49] LABS: Activated Partial Thrombo Time 30.2 seconds (22.8-30.6)
[2024-09-23 13:57] LABS: NT Pro Brain Natriuretic Pep. 9930 pg/mL (0-450)
--- NOTE | 2024-09-23 13:57 | PC.NURSE ---
1318- Respiratory at pt's bedside placing pt on BIPAP machine. Blood glucose 154. 1319- [place] pt's POA on the phone with DR. Ndiyae at bedside. Pt DNR, okay to intubate.
[2024-09-23 13:59] LABS: Troponin I 0.14 ng/ml (0.00-0.034)
[2024-09-23 14:00] LABS: INR 1.05 (0.9-1.1); Prothrombin Time 11.7 seconds (10.1-12.5)
[2024-09-23] MEDS: 0.9 % SODIUM CHLORIDE 50 ML VIAL IV (14:14)
[2024-09-23] MEDS: SODIUM CHLORIDE 0.9% 10ML SYR (RAD ONLY) 10 ML IV (14:14)
[2024-09-23] MEDS: IOPAMIDOL-370 (76%);100ML BOTTLE 85 ML IV (14:14)
[2024-09-23] MEDS: MAGNESIUM SULFATE IN WATER 2 GM/50 ML PIGGYBACK IV (14:37)
[2024-09-23] MEDS: FUROSEMIDE 40MG/4ML VIAL 60 MG IV (14:37)
--- NOTE | 2024-09-23 14:39 | PC.NURSE ---
joe mcdonald changes placed brief and put a male purwick on pt at this time to collect a ua sample and warm blanket was given
[2024-09-23] MEDS: VANCOMYCIN CONSULT REQUEST 1 EACH NOTAPPLIC (14:53)
[2024-09-23] MEDS: VANCOMYCIN/WATER FOR INJ (PEG) 1.5 GM/300 ML PIGGYBACK IV (14:53)
[2024-09-23] MEDS: CEFEPIME HCL 2 GM in 0.9 % SODIUM CHLORIDE 100 ML IV ×2 (14:54→23:33)
--- NOTE | 2024-09-23 14:58 | P.HP_ITS ---
History of Present Illness *Admission Date: 09/23/24 *Reason for visit:: short of breath *History of present illness: Mr. Rice is a 74-year-old male who [facility] Presented with approximately 24 hours of nonproductive cough and dyspnea. History significant for hypertension, hyperlipidemia, diabetes, mild cognitive impairment, COPD, CHF, aortic aneurysm repair. He presented to the ER with worsening shortness of breath over the past 24 to 48 hours. Sats upon arrival by EMS were in the 70s. He was given steroids and DuoNebs and placed on CPAP and route to the ER. On arrival patient's heart rate was elevated above 90, he was hypertensive with systolics in the 150s. Sats in the mid 80s on CPAP at 50% FiO2. Chest imaging obtained in the ED showing diffuse bilateral edema with bilateral effusions. Troponin elevated at 0.14 with severe elevation of BNP at 9900. White count elevated at 16.5. Creatinine 2.1 with BUN of 18. CT of chest did not show any PEs. Did have some mediastinal adenopathy. Due to his acute hypoxemic respiratory failure from suspected CHF versus pneumonia, medicine consulted for admission and further care. Fluids were not administered due to sepsis criteria, instead patient was given dose of Lasix 60 mg IV once and placed on BiPAP with improvement in respiratory status. On arrival to the floor, patient was changed to CPAP as he did not have hypercapnia on his VBG. He is more alert and interacting with staff. Oriented x 2. Family at bedside helps supplement history. Starting to have response to diuretics. Urine bright orange due to taking Azo at home. [facility] Disclaimer: The information contained in this section may have been updated after the patient was seen, as this information can be updated by other users. Medical History Colostomy in place Hx SBO Vascular dementia COPD (chronic obstructive pulmonary disease) Surgical History H/O heart artery stent Hx of cardiac cath Hx of CABG Family History Other No significant family history Social History Smoking Status: Former smoker alcohol intake: never current occupational status: retired Travel in the last 8 weeks?: None Have you lived/traveled outside US in past 30 days?: No Contact w/someone who lives/traveled outside US past 30 days?: No Exposure to someone with infectious disease in past 14 days?: No Do you have a fever (greater than 100.4 F or 38 C)?: No Have you tested positive for COVID-19?: No Exposed to someone with COVID-19 in past 14 days?: No Do you have a sore throat?: No Do you have a cough?: No Do you have any weakness?: Yes Are you experiencing any nausea/vomitting?: No Do you have any diarrhea?: No Are you experiencing any unusual bleeding?: No Do you have any muscle aches/pain?: No Do you have any abdominal pain?: No Are you experiencing loss of taste or smell?: No Review of Systems Review of Systems Review of systems (narrative): 14 point review of systems performed, pertinent positives and negatives as per HPI Meds Home Medications and Allergies Home Medications ?Medication ?Instructions ?Recorded ?Confirmed ?Type amlodipine 10 mg tablet 10 mg PO DAILY 02/12/24 09/23/24 History bupropion HCl 100 mg tablet 100 mg PO BID 02/12/24 09/23/24 History cetirizine 10 mg tablet 5 mg PO DAILY 02/12/24 09/23/24 History clopidogrel 75 mg tablet 75 mg PO DAILY 02/12/24 09/23/24 History empagliflozin 25 mg tablet 25 mg PO DAILY 02/12/24 09/23/24 History folic acid 1 mg tablet 2 mg PO DAILY 02/12/24 09/23/24 History memantine 10 mg tablet 10 mg PO BID 02/12/24 09/23/24 History methimazole 10 mg tablet See Rx Instructions .Route .COMPLEX 02/12/24 09/23/24 History metoprolol tartrate 100 mg tablet 100 mg PO BID 02/12/24 09/23/24 History pregabalin 150 mg capsule 150 mg PO BID 02/12/24 09/23/24 History tramadol 50 mg tablet 100 mg PO DAILY 02/12/24 09/23/24 History trazodone 100 mg tablet 100 mg PO DAILY PRN Sleep 02/12/24 09/23/24 History miconazole nitrate 2 % topical 1 applic topical BID 09/23/24 09/23/24 History powder pantoprazole 20 mg tablet,delayed 20 mg PO DAILY 09/23/24 09/23/24 History release New Prescriptions to Start Prescriptions: Allergies Allergy/AdvReac Type Severity Reaction Status Date / Time ibuprofen Allergy Unknown Verified 02/12/24 14:26 Penicillins Allergy Unknown Verified 02/12/24 14:40 Sulfa (Sulfonamide Allergy Unknown Verified 02/12/24 14:40 Antibiotics) Exam Data for Last 24 hours Vital signs and Labs for Last 24 Hours: Temp Pulse Resp BP Pulse Ox O2 Del Method FiO2 100.7 F H 80 17 135/60 97 BiPAP 50 09/23/24 13:28 09/23/24 14:45 09/23/24 14:45 09/23/24 14:45 09/23/24 14:45 09/23/24 14:30 09/23/24 13:41 Laboratory Results - last 24 hr 09/23/24 13:20: WBC 16.3 H, RBC 4.79, Hgb 13.2 L, Hct 42.3, MCV 88.3, MCH 27.6, MCHC 31.2 L, RDW 16.5, Plt Count 364, MPV 9.7, Neut % (Auto) 82.7 H, Lymph % (Auto) 8.7 L, [place] % (Auto) 6.8, Eos % (Auto) 0.8, Baso % (Auto) 0.6, Neut # (Auto) 13.5 H, Lymph # (Auto) 1.4, [place] # (Auto) 1.1 H, Eos # (Auto) 0.1, Baso # (Auto) 0.1, PT 11.7, INR 1.05, APTT 30.2, Sodium 138, Potassium 4.6, Chloride 107, Carbon Dioxide 24, Anion Gap 11.6, BUN 18, Creatinine 2.10 H, Estimated Creat Clear 37, Estimated GFR 31 L, Est GFR ( Amer) 37 L, Glucose 195 H, Lactate 1.9, Calcium 8.9, Magnesium 2.0, Total Bilirubin 1.7 H, AST 24, ALT 17, Alkaline Phosphatase 117, Troponin I 0.14 H, NT-Pro-B Natriuret Pep 9930 H, Total Protein 7.3, Albumin 3.7, Globulin 3.6 H, Albumin/Globulin Ratio 1.0 L 09/23/24 13:23: VBG pH 7.32, VBG pCO2 45.6, VBG pO2 31.1, VBG HCO3 23.2, VBG Total CO2 24.6, VBG O2 Saturation 57.4, VBG Base Excess -2.9 L, VBG Lactic Acid 2.3 H I & O for Last 24 hours: Intake & Output 09/20/24 09/21/24 09/22/24 09/23/24 23:59 23:59 23:59 23:59 Weight 86.183 kg Constitutional Constitutional: moderate distress, average body habitus, chronically ill appearing and cooperative *Routine HEENT Exam Head: Present normocephalic Eye: Present EOMI and PERRL ENT: Present mucous membranes moist *Routine Neck Exam Neck: Present supple; Absent lymphadenopathy *Routine Respiratory Exam Respiratory: Present accessory muscle use, prolonged expiratory phase and crackles (Diffuse in bilateral lung woods); Absent rhonchi or wheezes *Routine Cardiovascular Exam Cardiovascular: Present RRR *Routine Abdominal Exam Abdominal: Present soft and normoactive bowel sounds; Absent tenderness *Routine Rectal Exam Rectal:: deferred *Routine Genitalia Exam Genitalia:: deferred *Routine Extremities Exam Extremities: Absent cyanosis, clubbing or edema *Routine Skin Exam Skin: Present warm; Absent rash *Routine Neurological Exam Neurological: Present alert, oriented X3 and moving all extremities; Absent altered mental status Assessment and Plan *Assessment and plan (1) Acute hypoxic respiratory failure: Status: Acute Category: Medical Code(s): J96.01 - Acute respiratory failure with hypoxia (2) Pneumonia: Status: Acute Category: Medical Code(s): J18.9 - Pneumonia, unspecified organism (3) CHF exacerbation: Status: Acute Category: Medical Code(s): I50.9 - Heart failure, unspecified (4) CKD stage 3a, GFR 45-59 ml/min: Status: Acute Category: Medical Code(s): N18.31 - Chronic kidney disease, stage 3a (5) Diabetes: Status: Acute Category: Medical Code(s): E11.9 - Type 2 diabetes mellitus without complications (6) Hypertension: Status: Acute Category: Medical Code(s): I10 - Essential (primary) hypertension (7) NSTEMI (non-ST elevated myocardial infarction): Status: Acute Category: Medical Code(s): I21.4 - Non-ST elevation (NSTEMI) myocardial infarction (8) HFrEF (heart failure with reduced ejection fraction): Status: Acute Category: Medical Code(s): I50.20 - Unspecified systolic (congestive) heart failure (9) Pleural effusion: Status: Acute Category: Medical Code(s): J90 - Pleural effusion, not elsewhere classified (10) Pulmonary edema: Status: Acute Category: Medical Code(s): J81.1 - Chronic pulmonary edema Plan 74-year-old male who presents with acute hypoxemic respiratory failure. Findings concerning for CHF versus pneumonia. Discussed case with ER physician, request admission for further management of his respiratory failure and workup of etiology. I agreed to admit for further care. Cardiology consulted on admission. Responding to CPAP. O2 sats improving. Necessitating stepdown level of care. Problems addressed as follows: Acute hypoxemic respiratory failure Suspected pneumonia versus pulmonary edema -Elevated white count of 16, bilateral patchy findings on CT of chest per my review. Effusions bilaterally. - Continue broad-spectrum antibiotics with vancomycin daily and cefepime 1 g every 12 hours. Repeat CBC, CMP, magnesium ordered for the morning - Cultures pending - duonebs q6h NSTEMI Combined heart failure -Echo obtained, read shows grade 2 diastolic dysfunction with EF of 40%. Unsure patient's history but he does report history of CHF. BNP elevated at 9900. Responding to diuresis administered in the ER -Continue Bumex 1 mg IV twice daily -Initiate Lovenox 1 mg/kg twice daily. Troponin trending up, initial troponin 0.14, second troponin elevated At 0.65 - Suspect stress-induced elevation in troponins -Per chest review, patient appears to have had an ascending aorta replacement. Has sternotomy scar. - Loaded with aspirin 325 mg once - Cardiology recommends considering left heart cath in the morning to evaluate CAD and CHF -Further goal-directed management pending heart cath findings - Continue Plavix 75 mg daily, continue empagliflozin 25 mg daily; continue metoprolol tartrate 100 mg twice daily Mild cognitive impairment: Continue memantine 10 mg twice daily GERD: Continue pantoprazole 20 mg daily Neuropathy: Continue Lyrica 150 mg twice daily Will hold trazodone and tramadol due to concern for mild confusion on presentation Diabetes: A1c pending, fingersticks ACHS with sliding scale insulin as needed ACHS Full code Therapeutic Lovenox N.p.o.
--- NOTE | 2024-09-23 14:58 | CA_ITS ---
APPROVED REPORT EXAM: Comprehensive 2D, Doppler, and color-flow Echocardiogram Follow Up Specialist: HEATHER Dooley, RVS Ht: 6 ft 1 in Wt: 195lbs BSA: 2.13 BP: 135/60 mmHg Indications: CHF, BIPAP, COPD, DM, HTN, HD, SOA, Ex-smoker, Echo Enhancing Agent Comments: TDS: due to bipap/Supine/Lung impedance=Limited acoustic windows 2D Dimensions IVSd 0.89 cm M: 0.6-1.2 LVEF (Visual) 59.40 % PWd 0.97 cm M: 0.6 - 1.2 LA Volume 73.60 mL LVDd 5.90 cm M: 4.2 - 5.9 LA Volume Index 34.887344 mL/m2 (M/F) 16-34 LVDs 4.01 cm M: 2.5 - 4.0 EF AP4 38.00 % Left Atrium 3.80 cm M: 3.0 - 4.0 GL Strain -15.7 % M-Mode Dimensions RVDd 1.90 cm (0.9-2.6) LA Diam 5.11 cm (1.9-4.0) LVDd 5.85 cm (3.5-5.7) LVDs 4.06 cm (3.5-5.7) IVSd 0.89 cm (0.6-1.1) PWd 1.08 cm (0.6-1.1) EF (Teich) 57.30% EPSs 0.80 cm FS 30.60% EDV (Teich) 169.90 mL TAPSE 2.56 (<1.7) ESV (Teich) 72.50 mL LV Diastology E Decel Time 163 (160-240 msec) E/A Ratio 1.27 MED A' 7.50 cm/s LAT A' 7.80 cm/s Aortic Valve LUIS Index 0.77 cm2/m2 AoV Peak Michele. 168.0 (50-130 cm/s) AO Peak GR. 11.30 mmHg AO Mean GR. 5.90 (<5 mmHg) AO VTI 32.4 (18-25 cm) LUIS (VTI) 1.68 (2.5-4.5 cm2) Mitral Valve MV A Velocity 104.0 (40-130 cm/s) E/A Ratio 1.27 MV Mean Gr. 4.10 (<2mmHg) MV PHT 83.0 ms Tricuspid Valve TR P. Velocity 252.00 cm/s RAP Estimate 10.00 mmHg RVSP 35.40 mmHg Left Ventricle The left ventricle is normal size. The left ventricular systolic function is mildly to moderately reduced. There is increased overall thickness. There is a severe hypokinesis of the distal and apical LV verde. Grade 2 diastolic dysfunction. LVEF is 40%. Right Ventricle The right ventricle is normal size. The right ventricular systolic function is normal. Atria The left atrium is mildly dilated. Right atrium is mildly dilated. There is no Doppler evidence of interatrial shunt. Aortic Valve The aortic valve is mildly thickened. There is no hemodynamically significant aortic stenosis. Trace aortic regurgitation. Mitral Valve The mitral valve leaflets are mildly thickened. No evidence of mitral valve stenosis. Mild mitral regurgitation. Tricuspid Valve Tricuspid valve is grossly normal in structure and function. Trace tricuspid regurgitation. There is insufficient TR jet to estimate RVSP. Pulmonic Valve The pulmonary valve is normal in structure. Trace pulmonic regurgitation. Great Vessels The aortic root is normal in size. IVC is normal in size and collapses >50% with inspiration. Pericardium There is no pericardial effusion. Other Information Study Quality: Fair Conclusion Mild to moderate reduction in global LV systolic function (LVEF 40%). Severe hypokinesis of the distal and apical LV verde. Grade 2 diastolic dysfunction. Biatrial dilation. Mild MR. Electronically signed by : Brittany Mcdonald MD 09/23/2024 16:07:16
--- NOTE | 2024-09-23 15:03 | PC.NURSE ---
I notified the HS of the need for a bed to admit.
--- NOTE | 2024-09-23 15:33 | PC.NURSE ---
Report called to Daily DAVILA
--- NOTE | 2024-09-23 15:33 | PC.NURSE ---
I spoke with Jennie in resp, they are going to come help transfer to his admitted room.
--- NOTE | 2024-09-23 15:51 | PC.NURSE ---
pt arrived to the floor via stretcher from the ER @1551 to room 218
--- NOTE | 2024-09-23 15:53 | P.CONCA_ITS ---
History of Present Illness History of Present Illness Consult date: 09/23/24 Requesting physician: Stew Lopez Consult reason: shortness of breath Chief complaint: SOA History of present illness: This is a 74-year-old white male with past medical history of hypertension, hyperlipidemia, diabetes, dementia and COPD who presented to emergency department with shortness of breath for the last few days. Initial EMS arrival reports that oxygen saturations were in the 70s. Patient was placed on CPAP and given steroids and DuoNebs en route to ER. Upon presentation to ER initial blood pressure was 154/72, heart rate was 94, oxygen saturation was 83% on CPAP 50% FiO2. An EKG was obtained which showed sinus rhythm at a rate of 94 without acute ischemic changes noted. A left bundle branch block is present. Labs as follows: WBC 16.5, hemoglobin 13.2, platelets 364, sodium 138, potassium 4.6, creatinine 2.1. Lactic negative. Troponin elevated 0.14 to proBNP of 9930. A chest x-ray was obtained which showed bilateral opacities. A chest CTA shows a tiny right lower lobe pulmonary artery filling defect. Moderate mediastinal adenopathy, moderate bilateral pleural effusions and bibasilar consolidation is present as well as extensive airspace opacities in the bilateral upper lobes which likely represent pneumonia. Patient was given IV Lasix 60 mg x 1 and placed on BiPAP. Patient was admitted for acute hypoxic respiratory failure, new onset CHF and NSTEMI. [facility] Disclaimer: The information contained in this section may have been updated after the patient was seen, as this information can be updated by other users. Social History (Updated 02/12/24 @ 19:38 by KLAUS Schulte) Smoking Status: Former smoker alcohol intake: never current occupational status: retired Travel in the last 8 weeks?: None Have you lived/traveled outside US in past 30 days?: No Contact w/someone who lives/traveled outside US past 30 days?: No Exposure to someone with infectious disease in past 14 days?: No Do you have a fever (greater than 100.4 F or 38 C)?: No Have you tested positive for COVID-19?: No Exposed to someone with COVID-19 in past 14 days?: No Do you have a sore throat?: No Do you have a cough?: No Do you have any weakness?: Yes Do you have any diarrhea?: No Are you experiencing any unusual bleeding?: No Do you have any muscle aches/pain?: No Do you have any abdominal pain?: No Are you experiencing loss of taste or smell?: No Review of Systems *Cardiovascular Cardiovascular: Denies chest pain and Reports dyspnea *Respiratory Respiratory: Reports dyspnea Exam Data for Last 24 hours Vital signs and Labs for Last 24 Hours: Temp Pulse Resp BP Pulse Ox O2 Del Method FiO2 100.7 F H 81 20 145/68 H 99 BiPAP 50 09/23/24 13:28 09/23/24 15:30 09/23/24 15:30 09/23/24 15:30 09/23/24 15:30 09/23/24 15:30 09/23/24 13:41 Laboratory Results - last 24 hr 09/23/24 13:20: WBC 16.3 H, RBC 4.79, Hgb 13.2 L, Hct 42.3, MCV 88.3, MCH 27.6, MCHC 31.2 L, RDW 16.5, Plt Count 364, MPV 9.7, Neut % (Auto) 82.7 H, Lymph % (Auto) 8.7 L, [place] % (Auto) 6.8, Eos % (Auto) 0.8, Baso % (Auto) 0.6, Neut # (Auto) 13.5 H, Lymph # (Auto) 1.4, [place] # (Auto) 1.1 H, Eos # (Auto) 0.1, Baso # (Auto) 0.1, PT 11.7, INR 1.05, APTT 30.2, Sodium 138, Potassium 4.6, Chloride 107, Carbon Dioxide 24, Anion Gap 11.6, BUN 18, Creatinine 2.10 H, Estimated Creat Clear 37, Estimated GFR 31 L, Est GFR ( Amer) 37 L, Glucose 195 H, Lactate 1.9, Calcium 8.9, Magnesium 2.0, Total Bilirubin 1.7 H, AST 24, ALT 17, Alkaline Phosphatase 117, Troponin I 0.14 H, NT-Pro-B Natriuret Pep 9930 H, Total Protein 7.3, Albumin 3.7, Globulin 3.6 H, Albumin/Globulin Ratio 1.0 L 09/23/24 13:23: VBG pH 7.32, VBG pCO2 45.6, VBG pO2 31.1, VBG HCO3 23.2, VBG T otal CO2 24.6, VBG O2 Saturation 57.4, VBG Base Excess -2.9 L, VBG Lactic Acid 2.3 H I & O for Last 24 hours: Intake & Output 09/20/24 09/21/24 09/22/24 09/23/24 23:59 23:59 23:59 23:59 Weight 190 lb Constitutional Constitutional: no acute distress *Routine Respiratory Exam Respiratory: Present wheezes, crackles and symmetric chest movement *Routine Cardiovascular Exam Cardiovascular: Present RRR, Normal S1 and Normal S2 *Routine Abdominal Exam Abdominal: Present soft and normoactive bowel sounds; Absent tenderness *Routine Extremities Exam Extremities: Present full ROM and normal capillary refill; Absent edema *Routine Skin Exam Skin: Present intact, dry and warm Detailed Neck Exam: Thyroids Thyroid: Absent bruit Meds Home Medications and Allergies Home Medications ?Medication ?Instructions ?Recorded ?Confirmed ?Type amlodipine 10 mg tablet 10 mg PO DAILY 02/12/24 02/12/24 History aspirin 81 mg capsule 81 mg PO DAILY 02/12/24 02/12/24 History bupropion HCl 100 mg tablet 100 mg PO BID 02/12/24 02/12/24 History cetirizine 10 mg tablet 5 mg PO DAILY 02/12/24 02/12/24 History clopidogrel 75 mg tablet 75 mg PO DAILY 02/12/24 02/12/24 History empagliflozin 25 mg tablet 25 mg PO DAILY 02/12/24 02/12/24 History famotidine 20 mg tablet 20 mg PO DAILY 02/12/24 02/12/24 History folic acid 1 mg tablet 2 mg PO DAILY 02/12/24 02/12/24 History glimepiride 2 mg tablet 2 mg PO DAILY 02/12/24 02/12/24 History hydrocortisone 2.5 % topical cream 1 applic topical QID PRN sleep 02/12/24 02/12/24 History memantine 10 mg tablet 10 mg PO BID 02/12/24 02/12/24 History methimazole 10 mg tablet See Rx Instructions .Route .COMPLEX 02/12/24 02/12/24 History metoprolol tartrate 100 mg tablet 100 mg PO BID 02/12/24 02/12/24 History pregabalin 150 mg capsule 150 mg PO BID 02/12/24 02/12/24 History tramadol 50 mg tablet 50 mg PO DAILY 02/12/24 02/12/24 History trazodone 100 mg tablet 100 mg PO DAILY PRN Sleep 02/12/24 02/12/24 History New Prescriptions to Start Prescriptions: Allergies Allergy/AdvReac Type Severity Reaction Status Date / Time ibuprofen Allergy Unknown Verified 02/12/24 14:26 Penicillins Allergy Unknown Verified 02/12/24 14:40 Sulfa (Sulfonamide Allergy Unknown Verified 02/12/24 14:40 Antibiotics) Assessment and Plan *Assessment and plan (1) Pleural effusion: Status: Acute Category: Medical Code(s): J90 - Pleural effusion, not elsewhere classified (2) HFrEF (heart failure with reduced ejection fraction): Status: Acute Category: Medical Code(s): I50.20 - Unspecified systolic (congestive) heart failure (3) CKD stage 3a, GFR 45-59 ml/min: Status: Acute Category: Medical Code(s): N18.31 - Chronic kidney disease, stage 3a (4) NSTEMI (non-ST elevated myocardial infarction): Status: Acute Category: Medical Code(s): I21.4 - Non-ST elevation (NSTEMI) myocardial infarction Plan NSTEMI Left bundle branch block noted on EKG Troponin 0.14 Start Lovenox 1 mg/kg SQ twice daily Load with aspirin Plan for left heart catheterization tomorrow to further evaluate for coronary artery disease. New onset HFrEF BNP 9930. Patient complaining of shortness of breath. Moderate bilateral pleural effusions noted. Echo shows an ejection fraction of 40% with severe hypokinesis of the distal and apical LV verde. Grade 2 diastolic dysfunction, biatrial dilation mild MR Lasix 60 mg IV given x 1 in ER Start Lasix 40 mg IV daily Will start guideline directed medical therapy once patient has diuresed Acute hypoxic respiratory failure Combination HFrEF and pneumonia See treatment plan above for HFrEF Pneumonia treatment will defer to primary service CV summary 09/23/2024: Diurese patient with Lasix 40 mg IV daily. Keep patient n.p.o. after midnight. If respiratory status improves will consider left heart catheterization tomorrow for NSTEMI.
[2024-09-23 16:23] LABS: POC Glucose,Bedside 199 (70-110)
[2024-09-23 16:50] LABS: Troponin I 0.65 ng/ml (0.00-0.034)
[2024-09-23] MEDS: ASPIRIN 325MG TABLET 325 MG PO (17:15)
[2024-09-23] MEDS: ENOXAPARIN 100MG/ML SYRINGE 85 MG SUBCUT (17:15)
[2024-09-23] MEDS: BUMETANIDE 1MG/4ML VIAL 1 MG IV (17:15)
[2024-09-23 17:23] LABS: Reflex Lactic Add Lactic Reflex
--- NOTE | 2024-09-23 18:04 | PC.NURSE ---
Pt had completed vanc consult in er at 1453, pt received a dose of vanc at 1453. 2nd consult entered this afternoon, contacted rick in night pharmacy. consult reentered to prompt for am pharmacy as he will not need another dose until in the am.
[2024-09-23 18:06] LABS: Lactic Acid Follow Up (RFLX 1) 3.4 mmol/L (0.7-2.1)
[2024-09-23 19:42] LABS: Reflex Lactic (2 hrs) Add Lactic Reflex
[2024-09-23 20:06] LABS: Troponin I 1.14 ng/ml (0.00-0.034)
--- NOTE | 2024-09-23 20:07 | PC.NURSE ---
reported critical troponin to Garry Ruiz APRN
[2024-09-23 20:33] LABS: POC Glucose,Bedside 260 (70-110)
[2024-09-23 21:16] LABS: Lactic Acid Follow up (RFLX 2) 2.3 mmol/L (0.7-2.1)
[2024-09-23] MEDS: humaLOG 100 UNITS/ML 10ML VIAL (SSI) SUBCUT (21:44)
[2024-09-24] VITALS (27 sets, daily range): BP systolic 124–170; BP diastolic 58–88; PULSE 61–100; RESP 10–20; TEMP 36.4–36.7; O2SAT 90–100; BMI 23.8
--- NOTE | 2024-09-24 00:05 | PC.NURSE ---
pt taken off CPAP for 5-10mins and placed on NC 3L to drink water. O2 sat to 90% while on NC. pt has no complaints. pleasantly confused.
[2024-09-24] MEDS: IPRATROPIUM/ALBUTEROL 3 ML NEB IH ×5 (00:08→23:16)
[2024-09-24] MEDS: ENOXAPARIN 100MG/ML SYRINGE 85 MG SUBCUT (05:46)
--- NOTE | 2024-09-24 05:56 | PC.NURSE ---
pt has had no complaints t/o the night. CPAP weaned to 35% FIO2 per RT. Pt turned Q2 hours. Meds admin per JUL. CPAP removed intermittently for very short periods of time to allow pt to drink. Pt tolerated 3L NC well. Call light in reach.
[2024-09-24 06:17] LABS: Basophils % 0.1 % (0.1-2.0); Hematocrit 40.1 % (42.0-52.0); Hemoglobin 12.7 g/dL (14.1-18.0); Lymphocytes # 0.6 K/mm3 (0.7-4.5); Lymphocytes % 6.8 % (10-50); Mean Corpuscular HGB Conc 31.7 g/dL (31.8-35.4); Mean Corpuscular Hemoglobin 27.7 pg (27.0-31.2); Mean Corpuscular Volume 87.6 fl (80-94); Mean Platelet Volume 9.5 fl (7.4-10.4); Monocytes # 0.3 K/mm3 (0.1-1.0); Neutrophils # 8.5 K/mm3 (1.8-7.8); Neutrophils % 89.7 % (37.0-80.0); Nucleated Red Blood Cells # 0 10^3/uL; Nucleated Red Blood Cells % 0 %; Platelet Count 333 K/mm3 (142-424); Red Blood Count 4.58 M/mm3 (4.60-6.20); Red Cell Distribution Width 16.1 % (11.5-17.5); Red Cell Distribution Width-SD 51.2 fL; White Blood Count 9.4 K/mm3 (4.8-10.8)
[2024-09-24 06:19] LABS: Albumin Level 3.9 g/dl (3.5-5.0); Chloride 105 mmol/L (98-107)
[2024-09-24 06:20] LABS: Potassium 4.4 mmoL/L (3.5-5.1); Sodium 139 mmol/L (136-145)
[2024-09-24 06:22] LABS: Alanine Aminotransferase 16 U/L (12-78); Albumin/Globulin Ratio 1.1 (1.1-1.8); Alkaline Phosphatase 105 U/L (38-126); Anion Gap 14.4 mEq/L (5-15); Aspartate Amino Transferase 26 U/L (17-59); Bilirubin,Total 0.8 mg/dl (0.2-1.3); Blood Urea Nitrogen 29 mg/dl (9-20); Carbon Dioxide 24 mmol/L (22.0-30.0); Creatinine Clearance Estimated 31 mL/min (50-200); Estimated Glomerular Filt Rate 27 ml/min (>60); GFR (African American) 32 ML/MIN (>60); Globulin 3.6 g/dL (1.3-3.2); Total Protein,Serum 7.5 g/dl (6.3-8.2)
[2024-09-24 06:23] LABS: Calcium 9.1 mg/dl (8.4-10.2); Glucose 197 mg/dl (74-100); Magnesium 2.6 mg/dl (1.6-2.3)
[2024-09-24] MEDS: humaLOG 100 UNITS/ML 10ML VIAL (SSI) SUBCUT ×2 (06:28→20:23)
[2024-09-24 06:31] LABS: POC Glucose,Bedside 183 (70-110)
--- NOTE | 2024-09-24 08:05 | P.CONPHA_ITS ---
Pharmacy Consult Date: 09/24/24 Time: 08:07 Referring provider: DR KRISHNAN Reason for Consult:: VANCOMYCIN DOSING CONSULT Allergies Allergy/AdvReac Type Severity Reaction Status Date / Time ibuprofen Allergy Unknown Verified 02/12/24 14:26 Penicillins Allergy Unknown Verified 02/12/24 14:40 Sulfa (Sulfonamide Allergy Unknown Verified 02/12/24 14:40 Antibiotics) Home Medications ?Medication ?Instructions ?Recorded ?Confirmed ?Type amlodipine 10 mg tablet 10 mg PO DAILY 02/12/24 09/23/24 History bupropion HCl 100 mg tablet 100 mg PO BID 02/12/24 09/23/24 History cetirizine 10 mg tablet 5 mg PO DAILY 02/12/24 09/23/24 History clopidogrel 75 mg tablet 75 mg PO DAILY 02/12/24 09/23/24 History empagliflozin 25 mg tablet 25 mg PO DAILY 02/12/24 09/23/24 History folic acid 1 mg tablet 2 mg PO DAILY 02/12/24 09/23/24 History memantine 10 mg tablet 10 mg PO BID 02/12/24 09/23/24 History methimazole 10 mg tablet 10 mg PO MOWEFR 02/12/24 09/24/24 History metoprolol tartrate 100 mg tablet 100 mg PO BID 02/12/24 09/23/24 History pregabalin 150 mg capsule 150 mg PO BID 02/12/24 09/23/24 History tramadol 50 mg tablet 100 mg PO DAILY 02/12/24 09/23/24 History trazodone 100 mg tablet 100 mg PO DAILY PRN Sleep 02/12/24 09/23/24 History miconazole nitrate 2 % topical 1 applic topical BID 09/23/24 09/23/24 History powder pantoprazole 20 mg tablet,delayed 20 mg PO DAILY 09/23/24 09/23/24 History release New Prescriptions to Start Prescriptions: Height: 1.85 m Weight: 81.42 kg Laboratory Results:: Laboratory Results - last 24 hr 09/23/24 13:20: WBC 16.3 H, RBC 4.79, Hgb 13.2 L, Hct 42.3, MCV 88.3, MCH 27.6, MCHC 31.2 L, RDW 16.5, Plt Count 364, MPV 9.7, Neut % (Auto) 82.7 H, Lymph % (A uto) 8.7 L, [place] % (Auto) 6.8, Eos % (Auto) 0.8, Baso % (Auto) 0.6, Neut # (Auto) 13.5 H, Lymph # (Auto) 1.4, [place] # (Auto) 1.1 H, Eos # (Auto) 0.1, Baso # (Auto) 0.1, PT 11.7, INR 1.05, APTT 30.2, Sodium 138, Potassium 4.6, Chloride 107, Carbon Dioxide 24, Anion Gap 11.6, BUN 18, Creatinine 2.10 H, Estimated Creat Clear 37, Estimated GFR 31 L, Est GFR ( Amer) 37 L, Glucose 195 H, Lactate 1.9, Calcium 8.9, Magnesium 2.0, Total Bilirubin 1.7 H, AST 24, ALT 17, Alkaline Phosphatase 117, Troponin I 0.14 H, NT-Pro-B Natriuret Pep 9930 H, Total Protein 7.3, Albumin 3.7, Globulin 3.6 H, Albumin/Globulin Ratio 1.0 L 09/23/24 13:23: VBG pH 7.32, VBG pCO2 45.6, VBG pO2 31.1, VBG HCO3 23.2, VBG Total CO2 24.6, VBG O2 Saturation 57.4, VBG Base Excess -2.9 L, VBG Lactic Acid 2.3 H 09/23/24 16:15: POC Glucose 199 H, Troponin I 0.65 H 09/23/24 17:38: Lactate 3.4 H 09/23/24 19:30: Troponin I 1.14 H 09/23/24 19:37: POC Glucose 260 H 09/23/24 21:00: Lactate 2.3 H 09/24/24 05:46: WBC 9.4 D, RBC 4.58 L, Hgb 12.7 L, Hct 40.1 L, MCV 87.6, MCH 27.7, MCHC 31.7 L, RDW 16.1, Plt Count 333, MPV 9.5, Neut % (Auto) 89.7 H, Lymph % (Auto) 6.8 L, [place] % (Auto) 3.0, Eos % (Auto) 0.0 L, Baso % (Auto) 0.1, Neut # (Auto) 8.5 H, Lymph # (Auto) 0.6 L, [place] # (Auto) 0.3, Eos # (Auto) 0.0, Baso # (Auto) 0.0, Sodium 139, Potassium 4.4, Chloride 105, Carbon Dioxide 24, Anion Gap 14.4, BUN 29 H D, Creatinine 2.40 H, Estimated Creat Clear 31, Estimated GFR 27 L, Est GFR ( Amer) 32 L, Glucose 197 H, Calcium 9.1, Magnesium 2.6 H D , Total Bilirubin 0.8, AST 26, ALT 16, Alkaline Phosphatase 105, Total Protein 7.5, Albumin 3.9, Globulin 3.6 H, Albumin/Globulin Ratio 1.1 09/24/24 06:22: POC Glucose 183 H Medical History: Medical History (Updated 09/23/24 @ 22:40 by Stew Krishnan MD) Colostomy in place Hx SBO Vascular dementia COPD (chronic obstructive pulmonary disease) Assessment and Plan Assessment and plan all Dx Assessment and Plan for all problems:: Pharmacokinetic dosing service Objective: Age: 74 yo Serum creatinine: 2.4 mg/dL Height: 72.8 Inches Weight (kg): 81.42 Diagnosis: PNEUMONIA Assessment: IBW (kg): 79.44 Dosing wt(kg): 81.42 Estimated Creatinine clearance (ml/min): 29.9 CRCL method: Cockcroft and Gault using ibw(default). Drug selected: Vancomycin Loading dose (mg): 1500 MG Vd (liters): 57.0 (factor used: 0.7 L/kg) Barry (hr-1): 0.029 Half life (hrs): 23.90 CLvanco=?? 1.653 L/hr Recommended dose: 1250 mg Interval: 36 hrs Infusion time (hrs): 2.0 Predicted peak (mcg/mL): 32.9 Predicted trough (mcg/mL): 12.27 Total body weight is being used for vancomycin dosing. Recommendations: Give Vancomycin 1250 mg q 36 hrs with an expected Cpeak of 32.9 mcg/ml and an expected Ctrough of 12.27 mcg/ml TO START 09/25/24 AT 03:00, PATIENT RECEIVED LOADING DOSE OF VANCOMYCIN 1500 MG IN THE ED 09/23/24 AT 14:53. AUC 0-24 /LENA Data: LENA 0.5 mcg/mL:?? AUC/LENA:? 1008.3 LENA 1.0 mcg/mL:?? AUC/LENA:? 504.1 --------- LENA 1.5 mcg/mL:?? AUC/LENA:? 336.1 LENA 2.0 mcg/mL:?? AUC/LENA:? 252.1 Thank you for the consult
[2024-09-24] MEDS: MEMANTINE 10MG TABLET 10 MG PO ×2 (08:57→20:22)
[2024-09-24] MEDS: EMPAGLIFLOZIN 25MG TABLET 25 MG PO (08:57)
[2024-09-24] MEDS: PREGABALIN 50MG CAPSULE 150 MG PO ×2 (08:57→20:23)
[2024-09-24] MEDS: ASPIRIN EC 81MG TABLET 81 MG PO (08:57)
[2024-09-24] MEDS: CLOPIDOGREL 75MG TAB 75 MG PO (08:57)
[2024-09-24] MEDS: buPROPion HCL 100 MG TABLET PO ×2 (08:57→20:23)
[2024-09-24] MEDS: METOPROLOL TARTRATE 50MG TABLET 100 MG PO ×2 (08:57→20:22)
[2024-09-24] MEDS: BUMETANIDE 1MG/4ML VIAL 1 MG IV ×2 (08:58→15:39)
[2024-09-24] MEDS: CEFEPIME HCL 2 GM in 0.9 % SODIUM CHLORIDE 100 ML IV ×2 (09:55→22:43)
--- NOTE | 2024-09-24 10:20 | HMH.OTEV ---
OT Inpatient Evaluation Rehab OT IP Evaluation Start: 09/23/24 19:34 Freq: ONCE Status: Active Protocol: Document 09/24/24 10:13 [facility] (Rec: 09/24/24 10:19 [facility] [id number]) Rehab OT IP Assessment Subjective History Pt oriented x 3 on arrival. Pt agreeable to engage in therapy session. Pt's daughter and present and supportive during therapy session. Pt was admitted on due to SOB and CHF. History and Physical: Mr. Rice is a 74-year-old male who normally gets his care from the [facility]. Presented with approximately 24 hours of nonproductive cough and dyspnea. History significant for hypertension, hyperlipidemia, diabetes, mild cognitive impairment, COPD, CHF, aortic aneurysm repair. He presented to the ER with worsening shortness of breath over the past 24 to 48 hours. Sats upon arrival by EMS were in the 70s. He was given steroids and DuoNebs and placed on CPAP and route to the ER. On arrival patient's heart rate was elevated above 90, he was hypertensive with systolics in the 150s. Sats in the mid 80s on CPAP at 50% FiO2. Chest imaging obtained in the ED showing diffuse bilateral edema with bilateral effusions. Troponin elevated at 0.14 with severe elevation of BNP at 9900. White count elevated at 16.5. Creatinine 2.1 with BUN of 18. CT of chest did not show any PEs. Did have some mediastinal adenopathy. Due to his acute hypoxemic respiratory failure from suspected CHF versus pneumonia, medicine consulted for admission and further care . Fluids were not administered due to sepsis criteria, instead patient was given dose of Lasix 60 mg IV once and placed on BiPAP with improvement in respiratory status. Subjective I just got weak in my legs. Prior to being in the hospital . Pt lived at home and his daughter lived with him. Pt's daughter explains he has progressively got weaker in the last few weeks. Normally he requires assistance with dressing and bathing. He is able to feed himself after set up. Pt is dependent upon her for completion of all IADLs. He was receiving OT, but was discharged ~6 weeks ago due to meeting goals. Pt normally uses a motorized wheelchair for functional transfers. He does require assistance to transfer to and from wheelchair for safety. Objective Patient Orientation Person,Place,Birthday Right Upper Extremity Gross ROM Min Limitation <25% Left Upper Extremity Gross ROM Min Limitation <25% Shoulder ROM Limitations Muscle Weakness Elbow ROM Limitations Muscle Weakness Wrist Limitations of Range of Motion Muscle Weakness Bed Mobility bed mobility-scooting,bed mobility - supine/sit Assist Level Minimal x 2 (25% assist) Transfer Training Sit/Stand Transfer Assist Level Minimal x 2 (25% assist) Lower Body Dressing Ability Unable/dependent Rehab OT IP prob,goals,plan Problems Date of Evaluation: 09/24/24 OT IP Problems Bed Mobility,Transfers,Balance ,Self care,Safety Rehab Potential Rehab Potential Good Equipment Needs Assistive Devices Rolling / Wheeled Walker Plan OT intervention Plan Bed Mobility,Transfers,Balance ,Self care,Safety,Therapeutic Exercise OT Plan Frequency Daily Duration LOS Discharge Goals Bed Mobility Ability Assistance x1 Sit to Stand Chair Transfer Ability Minimal x 1 (25% assist) Chair Transfer Ability Minimal x 1 (25% assist) Chair Transfer Technique Stand Step Pivot Chair Transfer Assistive Devices Rolling Walker Feeding Ability Assist with Tray Set Up Lower Body Dressing Ability Moderate Assistance Upper Body Dressing Ability Contact Guard Bathing Ability Moderate Assistance Performing Toilet Hygiene Ability Moderate Assistance Overall Commode/Toilet Transfer Ability Moderate Assistance Commode/Toilet Transfer Technique Stand Pivot Commode/Toilet Transfer Assistive Grab Bars Devices Oral Care Assist Minimal Assistance Decrease in Endurance No Discharge Plan OT Discharge Plan Pt will continue to be seen for OT services while at [facility]. Pt can return home with assistance from daughter once he is medically stable. He appears to be close to his baseline with functional transfers and ADL independence . Therapist does recommend a OT evaluation upon returning home for continued skilled therapy due to his decline in functional ability at this time. Continued skilled therapy is important in order for patient to improve strength, safety, endurance, ADL independence, and functional transfers to reach [facility]. Eval Complexity Eval Charge Codes 72322 - Moderate Complexity PHYSICIAN CERTIFICATION: I certify the specified therapy services for Christian Rice are required, authorized, and reviewed every 30 days.
--- NOTE | 2024-09-24 10:20 | PC.NURSE ---
pt was moved to room 215, still in SD status. call light is within reach and family is at BS
--- NOTE | 2024-09-24 11:00 | P.PN_ITS ---
Subjective Subjective Date: 09/24/24 Time: 08:00 Principal diagnosis: NSTEMI, pneumonia, HFrEF Interval history: Patient reports he is doing well this morning. Denies chest pain reports shortness of air is greatly improved. Morning labs reviewed. Exam Data for Last 24 hours Vital signs and Labs for Last 24 Hours: Temp Pulse Resp BP Pulse Ox O2 Del Method O2 Flow Rate 97.9 F 63 18 128/58 L 92 L Nasal Cannula 2 09/24/24 08:00 09/24/24 10:16 09/24/24 10:16 09/24/24 10:16 09/24/24 10:16 09/24/24 10:16 09/24/24 10:16 FiO2 35 09/24/24 08:00 Laboratory Results - last 24 hr 09/23/24 13:20: WBC 16.3 H, RBC 4.79, Hgb 13.2 L, Hct 42.3, MCV 88.3, MCH 27.6, MCHC 31.2 L, RDW 16.5, Plt Count 364, MPV 9.7, Neut % (Auto) 82.7 H, Lymph % (Au to) 8.7 L, [place] % (Auto) 6.8, Eos % (Auto) 0.8, Baso % (Auto) 0.6, Neut # (Auto) 13.5 H, Lymph # (Auto) 1.4, [place] # (Auto) 1.1 H, Eos # (Auto) 0.1, Baso # (Auto) 0.1, PT 11.7, INR 1.05, APTT 30.2, Sodium 138, Potassium 4.6, Chloride 107, Carbon Dioxide 24, Anion Gap 11.6, BUN 18, Creatinine 2.10 H, Estimated Creat Clear 37, Estimated GFR 31 L, Est GFR ( Amer) 37 L, Glucose 195 H, Lactate 1.9, Calcium 8.9, Magnesium 2.0, Total Bilirubin 1.7 H, AST 24, ALT 17, Alkaline Phosphatase 117, Troponin I 0.14 H, NT-Pro-B Natriuret Pep 9930 H, Total Protein 7.3, Albumin 3.7, Globulin 3.6 H, Albumin/Globulin Ratio 1.0 L 09/23/24 13:23: VBG pH 7.32, VBG pCO2 45.6, VBG pO2 31.1, VBG HCO3 23.2, VBG Total CO2 24.6, VBG O2 Saturation 57.4, VBG Base Excess -2.9 L, VBG Lactic Acid 2.3 H 09/23/24 16:15: POC Glucose 199 H, Troponin I 0.65 H 09/23/24 17:38: Lactate 3.4 H 09/23/24 19:30: Troponin I 1.14 H 09/23/24 19:37: POC Glucose 260 H 09/23/24 21:00: Lactate 2.3 H 09/24/24 05:46: WBC 9.4 D, RBC 4.58 L, Hgb 12.7 L, Hct 40.1 L, MCV 87.6, MCH 27.7, MCHC 31.7 L, RDW 16.1, Plt Count 333, MPV 9.5, Neut % (Auto) 89.7 H, Lymph % (Auto) 6.8 L, [place] % (Auto) 3.0, Eos % (Auto) 0.0 L, Baso % (Auto) 0.1, Neut # (Auto) 8.5 H, Lymph # (Auto) 0.6 L, [place] # (Auto) 0.3, Eos # (Auto) 0.0, Baso # (Auto) 0.0, Sodium 139, Potassium 4.4, Chloride 105, Carbon Dioxide 24, Anion Gap 14.4, BUN 29 H D, Creatinine 2.40 H, Estimated Creat Clear 31, Estimated GFR 27 L, Est GFR ( Amer) 32 L, Glucose 197 H, Calcium 9.1, Magnesium 2.6 H D , Total Bilirubin 0.8, AST 26, ALT 16, Alkaline Phosphatase 105, Total Protein 7.5, Albumin 3.9, Globulin 3.6 H, Albumin/Globulin Ratio 1.1 09/24/24 06:22: POC Glucose 183 H I & O for Last 24 hours: Intake & Output 09/21/24 09/22/24 09/23/24 09/24/24 23:59 23:59 23:59 23:59 Intake Total 480 / 480 Output Total 550 / 550 1050 / 1050 Balance -550 / -550 -570 / -570 Weight 179 lb 8 oz 179 lb 8.006 oz Constitutional Constitutional: no acute distress *Routine Respiratory Exam Respiratory: Present CTA bilaterally and symmetric chest movement *Routine Cardiovascular Exam Cardiovascular: Present RRR, Normal S1 and Normal S2 *Routine Abdominal Exam Abdominal: Present soft and normoactive bowel sounds; Absent tenderness *Routine Extremities Exam Extremities: Present full ROM and normal capillary refill; Absent edema *Routine Skin Exam Skin: Present intact, dry and warm Detailed Neck Exam: Thyroids Thyroid: Absent bruit Progress Note: A&P Assessment and plan (1) Acute hypoxic respiratory failure: Status: Acute (2) Pneumonia: Status: Acute (3) CHF exacerbation: Status: Acute (4) CKD stage 3a, GFR 45-59 ml/min: Status: Acute (5) Diabetes: Status: Acute (6) Hypertension: Status: Acute (7) NSTEMI (non-ST elevated myocardial infarction): Status: Acute (8) HFrEF (heart failure with reduced ejection fraction): Status: Acute (9) Pleural effusion: Status: Acute (10) Pulmonary edema: Status: Acute Assessment and Plan Assessment and Plan for All Diagnoses:: NSTEMI Left bundle branch block noted on EKG Troponin 0.14 Start Lovenox 1 mg/kg SQ twice daily Load with aspirin Left heart catheterization pending New onset HFrEF BNP 9930 on admission. Patient complaining of shortness of breath. Moderate bilateral pleural effusions noted. Echo shows an ejection fraction of 40% with severe hypokinesis of the distal and apical LV verde. Grade 2 diastolic dysfunction, biatrial dilation mild MR Lasix 60 mg IV given x 1 in ER Continue Lasix 40 mg IV daily Will start guideline directed medical therapy once patient has diuresed Acute hypoxic respiratory failure Combination HFrEF and pneumonia See treatment plan above for HFrEF Pneumonia treatment will defer to primary service Acute on chronic kidney disease Baseline creatinine 1.5-1.7. Today creatinine is 2.4. CV summary 09/23/2024: Diurese patient with Lasix 40 mg IV daily. Left heart cath pending.
[2024-09-24] MEDS: SODIUM CHLORIDE 3% 15ML NEB 3 ML IH (11:17)
--- NOTE | 2024-09-24 11:20 | HMH.PTEV ---
Physical Therapy Evaluation Rehab PT IP Evaluation Start: 09/23/24 19:34 Freq: ONCE Status: Active Protocol: Document 09/24/24 09:30 PHORaúlMATTHEW (Rec: 09/24/24 11:20 PHORNE [id number]) Subjective/History History History Patient is a 74-year-old male who presents with acute hypoxemic respiratory failure. Presented with approximately 24 hours of nonproductive cough and dyspnea. History significant for hypertension, hyperlipidemia, diabetes, mild cognitive impairment, COPD, CHF, aortic aneurysm repair. Patient currently lives at home with his daughter and uses a motorized WC at baseline, requiring assist for most transfers. Pt has home health PT and is able to walk with a RW. Subjective Subjective Patient presents resting supine in bed, and is alert and oriented, but pleasantly confused. Pt states that he is willing to participate with PT/OT this am. Daughter is at bedside and states that he has been getting weaker over the last few weeks. Pt returned to bed with call light in reach. [facility] How much help from another person do you currently need... Turning from your back to your side None while in a flat bed without using bedrails? Moving from lying on back to sitting on A little the side of a flat bed without using bedrails? Moving to and from a bed to a chair ( A little including a wheelchair)? Standing up from a chair using your arms A little ? (e.g., wheelchair, bedside chair) Walking in hospital room? A little Climbing 3-5 steps with a railing? A lot Mobility Score 18 Mobility Level [facility] Mobility Calculator Mobility 6 Walk 10 steps or more Rehab PT IP Eval Objective Appearance Patient Behavior Appropriate,Cooperative Patient Orientation Person,Place Difficulty following instructions none Speech Pattern Clear,Appropriate Ambulation Patient Able to Ambulate No Balance Ability to Arise Able, uses arms to help Sitting Balance Steady, safe Standing Balance Steady, wide stance Dynamic Sitting Balance Ability Normal Dynamic Standing Balance Ability Good Transfers Bed Transfer Ability Contact Guard/Hand Hold Sit to Stand Bed Transfer Ability Minimal x 1 (25% assist) Rehab PT IP prob,goals,plan Problems Date of Evaluation: 09/24/24 PT IP Problems Bed Mobility,Transfers,Gait, Balance,Safety Rehab Potential Rehab Potential Good Equipment Needs Assistive Devices Rolling / Wheeled Walker Plan PT Intervention Plan Bed Mobility,Transfers,Gait, Balance,Safety,Therapeutic Exercise PT Plan Frequency Daily Duration LOS Discharge Goals Bed Transfer Ability Supervision/Stand by Sit to Stand Chair Transfer Ability Contact Guard/Hand Hold Ambulation Assistive Device Rolling Walker Ambulation Distance (feet) 10 Discharge Plan PT Discharge Plan Mr. Rice is currently most appropriate to return home with family support once medically stable for d/c. Pt was able to stand at bedside for ~5 minutes with Camron and demonstrated single leg balance by performing standing marches x10. Skilled acute therapy is currently indicated to improve LE and trunk strength and endurance to improve transfer ability and ambulation to reduce caregiver burden and return to PLOF with all ADLs. Home health therapy is recommended to further improve strength for improved transfers and ambulation. Eval Complexity Eval Charge Codes 68917 - High Complexity PHYSICIAN CERTIFICATION: I certify the specified therapy services for Christian Rice are required, authorized, and reviewed every 30 days.
[2024-09-24 11:24] LABS: POC Glucose,Bedside 153 (70-110)
--- NOTE | 2024-09-24 12:39 | IR_ITS ---
APPROVED REPORT Patient Location: Inpatient PROCEDURES Left heart catheterization Selective coronary angiogram Selective engagement left internal mammary artery the LAD Selective engagement of the saphenous vein graft to the circumflex artery Selective engagement of the saphenous vein graft to the diagonal artery Drug-eluting stent deployment to the ostial proximal left internal mammary artery supplying the LAD Drug-eluting stent deployment to the ostial proximal dominant right coronary Angioplasty of the chronically occluded second obtuse marginal artery INDICATION Coronary artery disease, Acute non-ST elevation myocardial infarction, Coronary bypass surgery Informed consent was obtained prior to the procedure. COMPLICATIONS NONE Estimated Blood Loss: LESS THAN 10 ML TECHNIQUE One percent lidocaine used to anesthetize the right groin. The right femoral artery was accessed via the Seldinger technique and a 5 Nauruan sheath was placed in the right femoral artery. A JL 4, JR4 catheter were used to perform left heart catheterization, left ventriculogram selective coronary angiography as well as selective engagement of the 2 vein grafts and the left internal mammary artery. At the end the diagnostic angiogram therapeutic Was administered giving a therapeutic ACT and the 5 Nauruan sheath was exchanged for a 6 Nauruan sheath. A CAVAZOS guide catheter was used to perform selective engage the left internal mammary artery followed by Choice PT extra-support wire placed down the left internal mammary artery. A 2.5 x 38 mm Lexa frontier stent was deployed at 22 sarah reducing the severe stenosis to 0%. Following this a 3 DRC guide catheter was placed in the right coronary followed by Choice PT extra-support wire. 3 mm x 18 mm Fontana frontier stent was placed in the ostial proximal segment and deployed at 24 sarah reducing the severe stenosis to 0%. LAURA-3 flow was present before and after the procedure. At the end the procedure the apparatus was removed the patient was transferred to the postop putting in stable condition for sheath removal. Upon review of the cardiac catheterization was identified a second obtuse marginal artery was subtotally occluded and there was concern this may be the infarct vessel. Because of this the patient was brought back to the [facility] and sterilely prepped. An EBU 3.75 guide catheter was used to intubate the left main artery and a floppy Choice PT wire was placed into the second obtuse marginal artery. A 2 mm x 12 mm compliant balloon was deployed at 15 sarah reducing the stenosis. Repeat angiography demonstrated the vessel remained occluded therefore it was decided not to proceed with additional imaging and contrast usage. The apparatus was removed. At the end of procedure the apparatus was removed the groin is reprepped closure change sheath was removed and hemostasis achieved using Angio-Seal device patient was transferred to the postop putting in stable condition ANGIOGRAPHIC RESULTS The left main artery Normal The left anterior descending artery Proximally patent and gives rise to a large branching first septal garland maker which is widely patent. The LAD is occluded after the first septal The circumflex artery Is dominant and gives rise to a large first obtuse marginal artery which has a proximal concentric 40% stenosis. Distal to the first obtuse marginal artery the circumflex artery is subtotally occluded with scant flow distally into a large second obtuse marginal artery The right coronary artery Nondominant yet still large with a proximal calcified concentric 70% stenosis The CRAWLEY ventriculogram reveals Not performed The left ventricular end-diastolic pressure 10 mmHg Left subclavian artery is heavily atheromatous with 50% stenosis and gives rise to the left internal mammary artery supplying the LAD. Ostially and proximally there is 70 and 80% stenosis in the CAVAZOS graft. The LAD itself is large and supplies the apex Saphenous vein graft to diagonal artery occluded Saphenous vein graft to circumflex artery occluded IMPRESSION Subtotal occlusion of the second obtuse marginal artery Severe disease in the CAVAZOS graft supplying the LAD Successful stenting of the CAVAZOS graft supplying the LAD severe disease reduced to 0% with 1 drug-eluting stent Successful stenting of the proximal nondominant yet large right coronary severe disease to 0% with 1 drug-eluting stent Angioplasty of a chronically occluded second obtuse marginal artery which remained subtotally occluded following revascularization attempts Normal LVEDP PLAN 1. Dual antiplatelet therapy 2. IV fluids overnight with plans for chemistry panel in the morning 3. Continuous telemetry 4. LDL less than 55 achieved with high intensity statin 5. Avoidance of tobacco products 6. Risk factor modification Electronically signed by : Will Bhagat MD 09/24/2024 14:57:51
--- NOTE | 2024-09-24 12:43 | SW/DCPLANNER ---
Spoke with family about home health services once patient is fully discharged. Patient stated that he already gets home health services. [facility]. Danilo Borrero
--- NOTE | 2024-09-24 12:56 | PC.NURSE ---
pt to clinical laboratory service teacher via stretcher @[phone]
[2024-09-24] MEDS: diphenhydrAMINE 50MG/ML VIAL 50 MG IV (13:06)
[2024-09-24] MEDS: HEPARIN 1,000 UNITS/500ML NS (CATH LAB) 3000 UNIT IV (13:06)
[2024-09-24] MEDS: LIDOCAINE 1% 10ML MDV 10 ML IJ (13:06)
[2024-09-24] MEDS: 0.9 % SODIUM CHLORIDE 500 ML 25 ML IV (13:06)
[2024-09-24] MEDS: HEPARIN 1,000 UNITS/ML 10ML VIAL (CATH LAB) 5000 UNIT IV ×2 (13:33→14:52)
[2024-09-24] MEDS: MIDAZOLAM HCL 1MG/ML 5ML VIAL 1 MG IV ×2 (14:04→14:52)
[2024-09-24] MEDS: FENTANYL 100MCG/2ML VIAL 50 MCG IV ×2 (14:04→14:51)
--- NOTE | 2024-09-24 15:27 | PC.NURSE ---
pt arrived back to room from laboratory mechanical technician via stretcher @[phone]
[2024-09-24] MEDS: IOPAMIDOL-370 (76%);100ML BOTTLE 90 ML IV (15:35)
[2024-09-24 15:37] LABS: CATHL Activated Clotting Time 275 SEC (74-125)
[2024-09-24 15:37] LABS: CATHL Activated Clotting Time 316 SEC (74-125)
--- NOTE | 2024-09-24 15:54 | PC.NURSE ---
Patient alert to self, pleasantly confused. right groin site clean dry and intact. No hematoma noted. Patient to lay flat until 2014. may sit up then stand at 2114. Lung sounds diminished.
[2024-09-24 16:25] LABS: POC Glucose,Bedside 126 (70-110)
--- NOTE | 2024-09-24 18:18 | PC.NURSE ---
patient and family requested that patient gets his face shaved. This SRNA performed task. While shaving the patients face the patient jerked his head causing the patient to be knicked by the dissposable razor. a polynem dressing was applied to the patients upper lip at this time.
--- NOTE | 2024-09-24 19:40 | PC.NURSE ---
when doing shift assessment pt had a bandaid just above his upper lip. pt was given a bath on day shift and was shaven and was nicked with the razor. Pt takes lovenox daily and also had been heprinized from a cath that he had earlier this date. due to bleeding still a new bandaid was placed over the small prasanna that was there.
[2024-09-24 20:14] LABS: POC Glucose,Bedside 171 (70-110)
[2024-09-24] MEDS: PANTOPRAZOLE 40MG TABLET 40 MG PO (20:22)
--- NOTE | 2024-09-24 22:29 | P.PN_ITS ---
Subjective *Date: 09/24/24 *Time: 22:29 Interval history: Weaned off CPAP this morning. Tolerating 1 L oxygen. Afebrile. No nausea or vomiting. -1 L since admission. White count normalized. Doing better. At baseline mentation. Working with therapy today Medical Exam Vital signs and Labs for Last 24 Hours: Vital Signs Temp Pulse Pulse Resp BP Pulse Ox O2 Del Method 09/24/24 22:00 68 20 137/62 96 Nasal Cannula 09/24/24 21:30 69 14 132/58 L 98 Nasal Cannula 09/24/24 20:53 Nasal Cannula 09/24/24 20:00 72 09/24/24 20:00 77 14 145/60 H 93 L Nasal Cannula 09/24/24 20:00 97.9 F 82 11 L 147/66 H 91 L Nasal Cannula 09/24/24 19:39 90 L Nasal Cannula 09/24/24 19:30 79 14 147/66 H 90 L Nasal Cannula 09/24/24 18:30 Nasal Cannula 09/24/24 18:30 75 18 141/60 H 93 L Nasal Cannula 09/24/24 18:06 70 09/24/24 18:06 71 09/24/24 18:06 93 L Nasal Cannula 09/24/24 18:00 72 16 137/64 94 L Nasal Cannula 09/24/24 17:30 76 18 137/58 L 91 L Nasal Cannula 09/24/24 17:00 70 20 142/67 H 94 L Nasal Cannula 09/24/24 17:00 Nasal Cannula 09/24/24 16:30 71 18 141/70 H 94 L Nasal Cannula 09/24/24 16:15 67 20 150/71 H 93 L Nasal Cannula 09/24/24 16:15 67 18 150/71 H 93 L Nasal Cannula 09/24/24 16:00 69 20 148/66 H 93 L Nasal Cannula 09/24/24 15:45 73 18 133/67 92 L Nasal Cannula 09/24/24 15:30 97.5 F L 71 18 139/66 92 L Nasal Cannula 09/24/24 12:00 70 09/24/24 12:00 98.0 F 71 19 129/67 94 L Nasal Cannula 09/24/24 11:19 62 16 09/24/24 11:19 62 09/24/24 11:19 66 09/24/24 11:19 93 L Nasal Cannula 09/24/24 10:56 Room Air 09/24/24 10:16 63 18 128/58 L 92 L Nasal Cannula 09/24/24 09:15 Nasal Cannula 09/24/24 08:30 Nasal Cannula 09/24/24 08:00 100 H 09/24/24 08:00 97.9 F 96 H 19 170/81 H 100 CPAP 09/24/24 06:13 81 09/24/24 06:13 82 09/24/24 06:13 90 L Nasal Cannula 09/24/24 06:00 78 12 164/88 H 98 CPAP 09/24/24 05:00 CPAP 09/24/24 04:00 73 09/24/24 04:00 97.8 F 77 12 125/66 98 CPAP 09/24/24 03:00 CPAP 09/24/24 02:00 09/24/24 02:00 98 CPAP 09/24/24 02:00 67 12 132/72 98 CPAP 09/24/24 01:00 CPAP 09/24/24 00:12 71 09/24/24 00:12 71 09/24/24 00:00 75 09/24/24 00:00 71 128/69 92 L Nasal Cannula 09/23/24 23:00 CPAP O2 Flow Rate FiO2 09/24/24 22:00 2 09/24/24 21:30 3 09/24/24 20:53 3 09/24/24 20:00 09/24/24 20:00 3 09/24/24 20:00 3 09/24/24 19:39 2 09/24/24 19:30 2 09/24/24 18:30 1 09/24/24 18:30 1 09/24/24 18:06 09/24/24 18:06 09/24/24 18:06 2 09/24/24 18:00 1 09/24/24 17:30 2 09/24/24 17:00 2 09/24/24 17:00 2 09/24/24 16:30 3 09/24/24 16:15 09/24/24 16:15 3 09/24/24 16:00 3 09/24/24 15:45 4 09/24/24 15:30 5 09/24/24 12:00 09/24/24 12:00 2 09/24/24 11:19 09/24/24 11:19 09/24/24 11:19 09/24/24 11:19 09/24/24 10:56 09/24/24 10:16 2 09/24/24 09:15 2 09/24/24 08:30 2 09/24/24 08:00 09/24/24 08:00 35 09/24/24 06:13 09/24/24 06:13 09/24/24 06:13 1 09/24/24 06:00 35 09/24/24 05:00 09/24/24 04:00 09/24/24 04:00 09/24/24 03:00 09/24/24 02:00 35 09/24/24 02:00 35 09/24/24 02:00 35 09/24/24 01:00 09/24/24 00:12 09/24/24 00:12 09/24/24 00:00 09/24/24 00:00 3 09/23/24 23:00 Intake and Output 09/24/24 09/24/24 09/24/24 07:59 15:59 23:59 Intake Total 480 / 940 100 / 940 360 / 940 Output Total 800 / 2275 475 / 2275 1000 / 2275 Balance -320 / -1335 -375 / -1335 -640 / -1335 Intake: Intake, Oral Amount 480 / 840 360 / 840 Intake, Total IV Amount 100 / 100 Cefepime HCl 2 gm In 0.9 % 100 / 100 Sodium Chloride 100 ml @ 200 mls/hr IV Q12H [facility] Rx#:[id number] Output: Output, Urine Amount 800 / 2275 475 / 2275 1000 / 2275 Other: Number of Unmeasured Voids 0 0 0 Weight 81.42 kg 81.42 kg Patient Weight 09/24/24 23:59 Weight 81.42 kg Laboratory Results - last 24 hr 09/24/24 05:46: WBC 9.4 D, RBC 4.58 L, Hgb 12.7 L, Hct 40.1 L, MCV 87.6, MCH 27.7, MCHC 31.7 L, RDW 16.1, Plt Count 333, MPV 9.5, Neut % (Auto) 89.7 H, Lymph % (Auto) 6.8 L, [place] % (Auto) 3.0, Eos % (Auto) 0.0 L, Baso % (Auto) 0.1, Neut # (Auto) 8.5 H, Lymph # (Auto) 0.6 L, [place] # (Auto) 0.3, Eos # (Auto) 0.0, Baso # (Auto) 0.0, Sodium 139, Potassium 4.4, Chloride 105, Carbon Dioxide 24, Anion Gap 14.4, BUN 29 H D, Creatinine 2.40 H, Estimated Creat Clear 31, Estimated GFR 27 L, Est GFR ( Amer) 32 L, Glucose 197 H, Calcium 9.1, Magnesium 2.6 H D , Total Bilirubin 0.8, AST 26, ALT 16, Alkaline Phosphatase 105, Total Protein 7.5, Albumin 3.9, Globulin 3.6 H, Albumin/Globulin Ratio 1.1 09/24/24 06:22: POC Glucose 183 H 09/24/24 11:16: POC Glucose 153 H 09/24/24 13:43: Activated Clotting Time 275 H* 09/24/24 14:31: Activated Clotting Time 316 H* 09/24/24 16:17: POC Glucose 126 H 09/24/24 20:05: POC Glucose 171 H I & O for Labs for Last 24 Hours: Intake & Output 09/21/24 09/22/24 09/23/24 09/24/24 23:59 23:59 23:59 23:59 Intake Total 940 / 940 Output Total 550 / 550 2275 / 2275 Balance -550 / -550 -1335 / -1335 Weight 81.42 kg 81.42 kg Microbiology Reports for the Last 24 Hours: Microbiology 09/24/24 17:33 Sputum - Expectorated Sputum Gram Stain - Final 09/23/24 14:36 Blood Blood Culture - Preliminary NO GROWTH AFTER 24 HOURS 09/23/24 13:20 Blood Blood Culture - Preliminary NO GROWTH AFTER 24 HOURS Constitutional: Present no acute distress, thin, chronically ill appearing and cooperative Head: Present atraumatic and normocephalic Respiratory: Present crackles and normal respiratory effort; Absent rhonchi or wheezes Cardiac: Present Reg Rate and Rhythm GI: Present soft and normal bowel sounds; Absent distention or tenderness Extremities: Present normal inspection and full ROM Skin: Present intact; Absent erythema Neuro: Present Grossly Intact, alert, awake, oriented x 3 and moves all extremities Assessment and Plan *Assessment and plan (1) Acute hypoxic respiratory failure: Status: Acute Category: Medical Code(s): J96.01 - Acute respiratory failure with hypoxia (2) HFrEF (heart failure with reduced ejection fraction): Status: Acute Category: Medical Code(s): I50.20 - Unspecified systolic (congestive) heart failure (3) Pneumonia: Status: Acute Category: Medical Code(s): J18.9 - Pneumonia, unspecified organism (4) CHF exacerbation: Status: Acute Category: Medical Code(s): I50.9 - Heart failure, unspecified (5) CKD stage 3a, GFR 45-59 ml/min: Status: Acute Category: Medical Code(s): N18.31 - Chronic kidney disease, stage 3a (6) Diabetes: Status: Acute Category: Medical Code(s): E11.9 - Type 2 diabetes mellitus without complications (7) Hypertension: Status: Acute Category: Medical Code(s): I10 - Essential (primary) hypertension (8) NSTEMI (non-ST elevated myocardial infarction): Status: Acute Category: Medical Code(s): I21.4 - Non-ST elevation (NSTEMI) myocardial infarction (9) Pleural effusion: Status: Acute Category: Medical Code(s): J90 - Pleural effusion, not elsewhere classified (10) Pulmonary edema: Status: Acute Category: Medical Code(s): J81.1 - Chronic pulmonary edema Plan 74-year-old male who presents with acute hypoxemic respiratory failure. Findings concerning for CHF versus pneumonia. Discussed case with ER physician, request admission for further management of his respiratory failure and workup of etiology. I agreed to admit for further care. Cardiology consulted on admission. Weaned CPAP. Going for left heart cath today. Continues to require inpatient management. Problems addressed as follows: Acute hypoxemic respiratory failure Suspected pneumonia versus pulmonary edema -White count normalized from 16-9.4, hemoglobin 12.7. Weaned from CPAP to 1 L oxygen today. Overall doing better with diuresis. - Continue broad-spectrum antibiotics with vancomycin daily and cefepime 1 g every 12 hours. 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 Unsure patient's history but he does report history of CHF. BNP elevated at 9900. Responding to diuresis administered in the ER -Continue Bumex 1 mg IV twice daily; -1 L since admission -Initiate Lovenox 1 mg/kg twice daily. Troponin trending up, initial troponin 0.14, second troponin elevated At 0.65 - Continue Plavix 75 mg daily, aspirin 81 mg daily, continue empagliflozin 25 mg daily; continue metoprolol tartrate 100 mg twice daily - Discussed case with cardiology, left heart cath performed today. Patient found to have subtotal occlusion of the second obtuse marginal artery, severe di sease of the CAVAZOS graft supplying the LAD, received successful stent to the CAVAZOS graft. Successful stent of the proximal nondominant large RCA and angioplasty of chronically occluded second obtuse marginal. Recommend DAPT therapy. Monitor for 48 hours. Close eye on kidney function due to contrast load. CKD: Kidney function stable at BUN 29, creatinine 2.4. Monitor closely with contrast load today. Mild cognitive impairment: Continue memantine 10 mg twice daily GERD: Continue pantoprazole 20 mg daily Neuropathy: Continue Lyrica 150 mg twice daily Will hold trazodone and tramadol due to concern for mild confusion on presentation Diabetes: A1c 7.5, fingersticks ACHS with sliding scale insulin as needed ACHS. Morning glucose 197. Full code Therapeutic Lovenox cardiac diet
[2024-09-25] VITALS (13 sets, daily range): BP systolic 126–165; BP diastolic 56–76; PULSE 63–102; RESP 12–20; TEMP 36.6–36.8; O2SAT 90–95; BMI 24.2
[2024-09-25] MEDS: ENOXAPARIN 100MG/ML SYRINGE 85 MG SUBCUT ×2 (03:22→16:25)
[2024-09-25] MEDS: VANCOMYCIN/WATER FOR INJ (PEG) 1.25 GM/250 ML PIGGYBACK IV (03:27)
--- NOTE | 2024-09-25 03:45 | PC.NURSE ---
Pt is still continuing to bleed from the small prasanna just above his upper lip from where he was shaven. At this time a pressure dressing was applied with 2x2s and tape. Pt has went through 5 small [place] bandaids and it continues to still bleed and is going into pts mouth.
[2024-09-25 05:56] LABS: POC Glucose,Bedside 139 (70-110)
[2024-09-25] MEDS: IPRATROPIUM/ALBUTEROL 3 ML NEB IH ×4 (06:37→23:03)
[2024-09-25 07:53] LABS: MANUAL DIFFERENTIAL MANUAL DIFFERENTIAL (MANUAL DIFF)
[2024-09-25 07:58] LABS: Basophils % 0.1 % (0.1-2.0); Hematocrit 35.7 % (42.0-52.0); Hemoglobin 11.3 g/dL (14.1-18.0); Lymphocytes # 1.5 K/mm3 (0.7-4.5); Lymphocytes % 9.7 % (10-50); Mean Corpuscular HGB Conc 31.7 g/dL (31.8-35.4); Mean Corpuscular Hemoglobin 27.6 pg (27.0-31.2); Mean Corpuscular Volume 87.3 fl (80-94); Mean Platelet Volume 9.7 fl (7.4-10.4); Monocytes # 1.1 K/mm3 (0.1-1.0); Monocytes % 6.9 % (1.7-9.3); Neutrophils # 12.6 K/mm3 (1.8-7.8); Neutrophils % 82.9 % (37.0-80.0); Platelet Count 351 K/mm3 (142-424); Red Blood Count 4.09 M/mm3 (4.60-6.20); Red Cell Distribution Width 16.6 % (11.5-17.5); White Blood Count 15.2 K/mm3 (4.8-10.8)
[2024-09-25] MEDS: PREGABALIN 50MG CAPSULE 150 MG PO ×2 (08:18→20:32)
[2024-09-25] MEDS: MEMANTINE 10MG TABLET 10 MG PO ×2 (08:19→20:32)
[2024-09-25] MEDS: CLOPIDOGREL 75MG TAB 75 MG PO (08:19)
[2024-09-25] MEDS: METOPROLOL TARTRATE 50MG TABLET 100 MG PO ×2 (08:19→20:32)
[2024-09-25] MEDS: EMPAGLIFLOZIN 25MG TABLET 25 MG PO (08:19)
[2024-09-25] MEDS: BUMETANIDE 1MG/4ML VIAL 1 MG IV ×2 (08:19→16:25)
[2024-09-25] MEDS: ASPIRIN EC 81MG TABLET 81 MG PO (08:19)
[2024-09-25] MEDS: buPROPion HCL 100 MG TABLET PO ×2 (08:19→20:32)
[2024-09-25 08:28] LABS: Chloride 105 mmol/L (98-107); Potassium 3.9 mmoL/L (3.5-5.1); Sodium 137 mmol/L (136-145)
[2024-09-25 08:31] LABS: Anion Gap 12.9 mEq/L (5-15); Blood Urea Nitrogen 40 mg/dl (9-20); Calcium 8.4 mg/dl (8.4-10.2); Carbon Dioxide 23 mmol/L (22.0-30.0); Creatinine Clearance Estimated 37 mL/min (50-200); Estimated Glomerular Filt Rate 33 ml/min (>60); GFR (African American) 40 ML/MIN (>60); Glucose 132 mg/dl (74-100)
[2024-09-25 10:02] LABS: Lymphocytes % 20 % (10-50); Monocytes % 3 % (2-9); Neutrophils % 77 % (42-76); Platelet Estimate Normal; RBC Morphology Normal; Total Cells Counted 100
[2024-09-25] MEDS: CEFEPIME HCL 2 GM in 0.9 % SODIUM CHLORIDE 100 ML IV (11:44)
[2024-09-25] MEDS: humaLOG 100 UNITS/ML 10ML VIAL (SSI) SUBCUT ×2 (11:45→20:32)
[2024-09-25 12:12] LABS: POC Glucose,Bedside 169 (70-110)
--- NOTE | 2024-09-25 15:08 | EXP.ACUTE.PN ---
Subjective *Date: 09/25/24 *Time: 15:08 Interval history: Pleasant on exam this morning. On room air. Denies chest pain. No nausea or vomiting. Clinically improving Medical Exam Vital signs and Labs for Last 24 Hours: Vital Signs Temp Pulse Pulse Resp BP Pulse Ox O2 Del Method 09/25/24 13:00 Room Air 09/25/24 12:00 98.3 F 64 20 133/63 91 L Room Air 09/25/24 11:16 65 09/25/24 11:16 64 09/25/24 11:16 91 L Room Air 09/25/24 11:00 Room Air 09/25/24 09:00 68 16 146/65 H 91 L Room Air 09/25/24 09:00 Room Air 09/25/24 08:30 Room Air 09/25/24 08:00 65 18 126/56 L 93 L Nasal Cannula 09/25/24 08:00 98.0 F 09/25/24 06:41 Nasal Cannula 09/25/24 06:38 63 09/25/24 06:38 68 09/25/24 06:38 90 L Nasal Cannula 09/25/24 06:00 69 15 94 L Nasal Cannula 09/25/24 05:00 Nasal Cannula 09/25/24 04:14 97.9 F 09/25/24 04:00 78 09/25/24 04:00 72 12 148/66 H 92 L Nasal Cannula 09/25/24 03:00 Nasal Cannula 09/25/24 02:00 64 91 L Nasal Cannula 09/25/24 02:00 76 15 137/59 L 90 L Nasal Cannula 09/25/24 01:00 Nasal Cannula 09/25/24 00:00 66 09/25/24 00:00 97.9 F 102 H 17 165/76 H 95 Nasal Cannula 09/24/24 23:18 64 09/24/24 23:18 61 09/24/24 22:54 Nasal Cannula 09/24/24 22:30 66 14 124/58 L 97 Nasal Cannula 09/24/24 22:00 68 20 137/62 96 Nasal Cannula 09/24/24 21:30 69 14 132/58 L 98 Nasal Cannula 09/24/24 20:53 Nasal Cannula 09/24/24 20:00 72 09/24/24 20:00 77 14 145/60 H 93 L Nasal Cannula 09/24/24 20:00 97.9 F 82 11 L 147/66 H 91 L Nasal Cannula 09/24/24 19:39 90 L Nasal Cannula 09/24/24 19:30 79 14 147/66 H 90 L Nasal Cannula 09/24/24 18:30 Nasal Cannula 09/24/24 18:30 75 18 141/60 H 93 L Nasal Cannula 09/24/24 18:06 70 09/24/24 18:06 71 09/24/24 18:06 93 L Nasal Cannula 09/24/24 18:00 72 16 137/64 94 L Nasal Cannula 09/24/24 17:30 76 18 137/58 L 91 L Nasal Cannula 09/24/24 17:00 70 20 142/67 H 94 L Nasal Cannula 09/24/24 17:00 Nasal Cannula 09/24/24 16:30 71 18 141/70 H 94 L Nasal Cannula 09/24/24 16:15 67 20 150/71 H 93 L Nasal Cannula 09/24/24 16:15 67 18 150/71 H 93 L Nasal Cannula 09/24/24 16:00 69 20 148/66 H 93 L Nasal Cannula 09/24/24 15:45 73 18 133/67 92 L Nasal Cannula 09/24/24 15:30 97.5 F L 71 18 139/66 92 L Nasal Cannula O2 Flow Rate 09/25/24 13:00 09/25/24 12:00 09/25/24 11:16 09/25/24 11:16 09/25/24 11:16 09/25/24 11:00 09/25/24 09:00 09/25/24 09:00 09/25/24 08:30 09/25/24 08:00 2 09/25/24 08:00 09/25/24 06:41 4 09/25/24 06:38 09/25/24 06:38 09/25/24 06:38 2 09/25/24 06:00 4 09/25/24 05:00 4 09/25/24 04:14 09/25/24 04:00 09/25/24 04:00 4 09/25/24 03:00 2 09/25/24 02:00 2 09/25/24 02:00 2 09/25/24 01:00 2 09/25/24 00:00 09/25/24 00:00 2 09/24/24 23:18 09/24/24 23:18 09/24/24 22:54 2 09/24/24 22:30 2 09/24/24 22:00 2 09/24/24 21:30 3 09/24/24 20:53 3 09/24/24 20:00 09/24/24 20:00 3 09/24/24 20:00 3 09/24/24 19:39 2 09/24/24 19:30 2 09/24/24 18:30 1 09/24/24 18:30 1 09/24/24 18:06 09/24/24 18:06 09/24/24 18:06 2 09/24/24 18:00 1 09/24/24 17:30 2 09/24/24 17:00 2 09/24/24 17:00 2 09/24/24 16:30 3 09/24/24 16:15 09/24/24 16:15 3 09/24/24 16:00 3 09/24/24 15:45 4 09/24/24 15:30 5 Intake and Output 09/24/24 09/25/24 09/25/24 23:59 07:59 15:59 Intake Total 360 / 1040 350 / 1374 1024 / 1374 Output Total 1000 / 2275 750 / 1600 850 / 1600 Balance -640 / -1235 -400 / -226 174 / -226 Intake: Intake, Oral Amount 360 / 840 924 / 924 Intake, Total IV Amount 350 / 450 100 / 450 Cefepime HCl 2 gm In 0.9 % 100 / 200 100 / 200 Sodium Chloride 100 ml @ 200 mls/hr IV Q12H [facility] Rx#:[id number] Vancomycin HCl 1,250 mg In 0.9 250 / 250 % Sodium Chloride 250 ml @ 125 mls/hr IV Q36H [facility] Rx#:[id number] Output: Output, Urine Amount 1000 / 2275 450 / 1300 850 / 1300 Output, Stool Amount 300 / 300 Other: Number of Unmeasured Voids 0 0 Weight 82.871 kg Patient Weight 09/25/24 23:59 Weight 82.871 kg Laboratory Results - last 24 hr 09/24/24 13:43: Activated Clotting Time 275 H* 09/24/24 14:31: Activated Clotting Time 316 H* 09/24/24 16:17: POC Glucose 126 H 09/24/24 20:05: POC Glucose 171 H 09/25/24 05:45: POC Glucose 139 H 09/25/24 06:35: WBC 15.2 H D, RBC 4.09 L, Hgb 11.3 L, Hct 35.7 L, MCV 87.3, MCH 27.6, MCHC 31.7 L, RDW 16.6, Plt Count 351, MPV 9.7, Neut % (Auto) 82.9 H, Lymph % (Auto) 9.7 L, [place] % (Auto) 6.9, Eos % (Auto) 0.0 L, Baso % (Auto) 0.1, Neut # (Auto) 12.6 H, Lymph # (Auto) 1.5, [place] # (Auto) 1.1 H, Eos # (Auto) 0.0, Baso # (Auto) 0.0, Total Counted 100, Neutrophils % (Manual) 77 H, Lymphocytes % (Manual) 20, Monocytes % (Manual) 3, Platelet Estimate Normal, RBC Morphology Normal, Sodium 137, Potassium 3.9, Chloride 105, Carbon Dioxide 23, Anion Gap 12.9, BUN 40 H D, Creatinine 2.00 H, Estimated Creat Clear 37, Estimated GFR 33 L, Est GFR ( Amer) 40 L D, Glucose 132 H, Calcium 8.4 09/25/24 11:43: POC Glucose 169 H I & O for Labs for Last 24 Hours: Intake & Output 09/22/24 09/23/24 09/24/24 09/25/24 23:59 23:59 23:59 23:59 Intake Total 940 / 1040 1374 / 1374 Output Total 550 / 550 2275 / 2275 1600 / 1600 Balance -550 / -550 -1335 / -1235 -226 / -226 Weight 81.42 kg 81.42 kg 82.871 kg Microbiology Reports for the Last 24 Hours: Microbiology 09/23/24 14:36 Blood Blood Culture - Preliminary NO GROWTH AFTER 48 HOURS 09/23/24 13:20 Blood Blood Culture - Preliminary NO GROWTH AFTER 48 HOURS 09/24/24 17:33 Sputum - Expectorated Sputum Gram Stain - Final Constitutional: Present no acute distress, thin, chronically ill appearing and cooperative Head: Present atraumatic and normocephalic Respiratory: Present crackles and normal respiratory effort; Absent rhonchi or wheezes Cardiac: Present Reg Rate and Rhythm GI: Present soft and normal bowel sounds; Absent distention or tenderness Extremities: Present normal inspection and full ROM Skin: Present intact; Absent erythema Neuro: Present Grossly Intact, alert, awake, oriented x 3 and moves all extremities Assessment and Plan *Assessment and plan (1) Acute hypoxic respiratory failure: Status: Acute Category: Medical Code(s): J96.01 - Acute respiratory failure with hypoxia (2) HFrEF (heart failure with reduced ejection fraction): Status: Acute Category: Medical Code(s): I50.20 - Unspecified systolic (congestive) heart failure (3) Pneumonia: Status: Acute Category: Medical Code(s): J18.9 - Pneumonia, unspecified organism (4) CHF exacerbation: Status: Acute Category: Medical Code(s): I50.9 - Heart failure, unspecified (5) CKD stage 3a, GFR 45-59 ml/min: Status: Acute Category: Medical Code(s): N18.31 - Chronic kidney disease, stage 3a (6) Diabetes: Status: Acute Category: Medical Code(s): E11.9 - Type 2 diabetes mellitus without complications (7) Hypertension: Status: Acute Category: Medical Code(s): I10 - Essential (primary) hypertension (8) NSTEMI (non-ST elevated myocardial infarction): Status: Acute Category: Medical Code(s): I21.4 - Non-ST elevation (NSTEMI) myocardial infarction (9) Pleural effusion: Status: Acute Category: Medical Code(s): J90 - Pleural effusion, not elsewhere classified (10) Pulmonary edema: Status: Acute Category: Medical Code(s): J81.1 - Chronic pulmonary edema Plan 74-year-old male who presents with acute hypoxemic respiratory failure. Findings concerning for CHF versus pneumonia. Discussed case with ER physician, request admission for further management of his respiratory failure and workup of etiology. I agreed to admit for further care. Cardiology consulted on admission. Weaned CPAP. Status post left heart cath on 09/24. Continues to require inpatient management. Problems addressed as follows: Acute hypoxemic respiratory failure Suspected pneumonia versus pulmonary edema - Open white count today at 15.2. Hemoglobin 11.3. Monitoring closely. Continues to require oxygen, currently on 4 L. Wean as tolerated for goal sats greater 90%. - Continue broad-spectrum antibiotics with vancomycin daily and cefepime 1 g every 12 hours. 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 Unsure patient's history but he does report history of CHF. BNP elevated at 9900. Responding to diuresis administered in the ER -Continue Bumex 1 mg IV twice daily; -2 L since admission - Continue Lovenox 1 mg/kg twice daily. Continue Plavix 75 mg daily, aspirin 81 mg daily, continue empagliflozin 25 mg daily; continue metoprolol tartrate 100 mg twice daily - Left heart cath performed 09/24, found to have subtotal occlusion of the second obtuse marginal artery, severe disease of the CAVAZOS graft supplying the LAD, received successful stent to the CAVAZOS graft. Successful stent of the proximal nondominant large RCA and angioplasty of chronically occluded second obtuse marginal. Recommend DAPT therapy. Monitor for 48 hours. Close eye on kidney function due to contrast load. CKD: Kidney function stable with BUN 40, creatinine 2.0. Baseline 1.7. Repeat labs ordered for the more Mild cognitive impairment: Continue memantine 10 mg twice daily GERD: Continue pantoprazole 20 mg daily Neuropathy: Continue Lyrica 150 mg twice daily Will hold trazodone and tramadol due to concern for mild confusion on presentation Diabetes: A1c 7.5, fingersticks ACHS with sliding scale insulin as needed ACHS. Morning glucose 132. Full code Therapeutic Lovenox cardiac diet
--- NOTE | 2024-09-25 15:51 | PC.NURSE ---
Patient able to wean off nasal cannula while awake but needs 2LNC while asleep, oxygen drops to 78%. VS stable, patient turned q2. Patient able to get up to chair for lunch but requesting to go back to bed after. Patient alert to self.
[2024-09-25 16:54] LABS: POC Glucose,Bedside 128 (70-110)
[2024-09-25] MEDS: PANTOPRAZOLE 40MG TABLET 40 MG PO (20:32)
--- NOTE | 2024-09-25 21:30 | PC.NURSE ---
Pt was found to be soiled, as his colostomy bag had leaked. This nurse replaced colostomy wafer and bag. This nurse changed pt pressure dressing to right groin cath site. No bleeding noted. Pt put to bed at pt request and turned to right side, applied 2L O2 on pt at this time (Pt O2 decreases while sleeping)
[2024-09-26] VITALS (7 sets, daily range): BP systolic 154–159; BP diastolic 71–72; PULSE 60–90; RESP 14–18; TEMP 36.7–37.2; O2SAT 86–97; BMI 23.6
[2024-09-26] MEDS: CEFEPIME HCL 2 GM in 0.9 % SODIUM CHLORIDE 100 ML IV (00:07)
[2024-09-26] MEDS: ENOXAPARIN 100MG/ML SYRINGE 85 MG SUBCUT (04:15)
[2024-09-26 05:43] LABS: POC Glucose,Bedside 126 (70-110)
--- NOTE | 2024-09-26 05:55 | PC.NURSE ---
Pt is alert to self and currently tolerating 2L well at this time. Pt has rested well this shift and denies pain. Pt has a cut (from shaving) to his top lip, cut has bleed a small amount on and off for the most part of the shift this nurse has dressed cut multiple times and educated pt to leave bandage in place.
[2024-09-26] MEDS: IPRATROPIUM/ALBUTEROL 3 ML NEB IH ×2 (06:13→12:49)
[2024-09-26 07:41] LABS: MANUAL DIFFERENTIAL MANUAL DIFFERENTIAL (MANUAL DIFF)
--- NOTE | 2024-09-26 07:56 | P.PN_ITS ---
Subjective *Date: 09/26/24 *Time: 07:56 Medical Exam Vital signs and Labs for Last 24 Hours: Vital Signs Temp Pulse Pulse Resp BP Pulse Ox O2 Del Method 09/26/24 06:39 Nasal Cannula 09/26/24 06:13 64 09/26/24 06:13 64 09/26/24 06:13 97 Nasal Cannula 09/26/24 05:00 Nasal Cannula 09/26/24 04:00 70 09/26/24 04:00 98.9 F 69 14 154/72 H 96 Nasal Cannula 09/26/24 03:00 Nasal Cannula 09/26/24 01:00 Nasal Cannula 09/26/24 00:38 65 09/26/24 00:38 66 09/26/24 00:00 90 09/26/24 00:00 98.1 F 83 18 154/72 H 96 Nasal Cannula 09/25/24 23:00 Nasal Cannula 09/25/24 21:00 Room Air 09/25/24 20:00 90 09/25/24 20:00 Nasal Cannula 09/25/24 20:00 98.1 F 83 12 151/69 H 93 L Room Air 09/25/24 18:59 66 09/25/24 18:59 66 09/25/24 18:38 Room Air 09/25/24 17:15 Room Air 09/25/24 16:00 70 09/25/24 16:00 98.3 F 77 18 145/59 H 93 L Nasal Cannula 09/25/24 15:00 Nasal Cannula 09/25/24 13:00 Room Air 09/25/24 12:00 70 09/25/24 12:00 98.3 F 64 20 133/63 91 L Room Air 09/25/24 11:16 65 09/25/24 11:16 64 09/25/24 11:16 91 L Room Air 09/25/24 11:00 Room Air 09/25/24 09:00 68 16 146/65 H 91 L Room Air 09/25/24 09:00 Room Air 09/25/24 08:30 Room Air 09/25/24 08:00 70 09/25/24 08:00 65 18 126/56 L 93 L Nasal Cannula 09/25/24 08:00 98.0 F O2 Flow Rate 09/26/24 06:39 2 09/26/24 06:13 09/26/24 06:13 09/26/24 06:13 2 09/26/24 05:00 2 09/26/24 04:00 09/26/24 04:00 2 09/26/24 03:00 2 09/26/24 01:00 2 09/26/24 00:38 09/26/24 00:38 09/26/24 00:00 09/26/24 00:00 2 09/25/24 23:00 2 09/25/24 21:00 09/25/24 20:00 09/25/24 20:00 09/25/24 20:00 09/25/24 18:59 09/25/24 18:59 09/25/24 18:38 09/25/24 17:15 09/25/24 16:00 09/25/24 16:00 2 09/25/24 15:00 2 09/25/24 13:00 09/25/24 12:00 09/25/24 12:00 09/25/24 11:16 09/25/24 11:16 09/25/24 11:16 09/25/24 11:00 09/25/24 09:00 09/25/24 09:00 09/25/24 08:30 09/25/24 08:00 09/25/24 08:00 2 09/25/24 08:00 Intake and Output 09/25/24 09/25/24 09/26/24 15:59 23:59 07:59 Intake Total 1024 / 2234 520 / 2234 340 / 340 Output Total 850 / 2950 1350 / 2950 700 / 700 Balance 174 / -716 -830 / -716 -360 / -360 Intake: Intake, Oral Amount 924 / 1684 520 / 1684 240 / 240 Intake, Total IV Amount 100 / 550 100 / 100 Cefepime HCl 2 gm In 0.9 % 100 / 300 100 / 100 Sodium Chloride 100 ml @ 200 mls/hr IV Q12H [facility] Rx#:[id number] Output: Output, Urine Amount 850 / 2650 1350 / 2650 700 / 700 Other: Number of Unmeasured Voids 0 0 1 Number of Bowel Movements 2 Weight 81.057 kg Patient Weight 09/26/24 23:59 Weight 81.057 kg Laboratory Results - last 24 hr 09/25/24 06:35: WBC 15.2 H D, RBC 4.09 L, Hgb 11.3 L, Hct 35.7 L, MCV 87.3, MCH 27.6, MCHC 31.7 L, RDW 16.6, Plt Count 351, MPV 9.7, Neut % (Auto) 82.9 H, Lymph % (Auto) 9.7 L, [place] % (Auto) 6.9, Eos % (Auto) 0.0 L, Baso % (Auto) 0.1, Neut # (Auto) 12.6 H, Lymph # (Auto) 1.5, [place] # (Auto) 1.1 H, Eos # (Auto) 0.0, Baso # (Auto) 0.0, Total Counted 100, Neutrophils % (Manual) 77 H, Lymphocytes % (Manual) 20, Monocytes % (Manual) 3, Platelet Estimate Normal, RBC Morphology Normal, Sodium 137, Potassium 3.9, Chloride 105, Carbon Dioxide 23, Anion Gap 12.9, BUN 40 H D, Creatinine 2.00 H, Estimated Creat Clear 37, Estimated GFR 33 L, Est GFR ( Amer) 40 L D, Glucose 132 H, Calcium 8.4 09/25/24 11:43: POC Glucose 169 H 09/25/24 16:25: POC Glucose 128 H 09/26/24 05:10: POC Glucose 126 H I & O for Labs for Last 24 Hours: Intake & Output 09/23/24 09/24/24 09/25/24 09/26/24 23:59 23:59 23:59 23:59 Intake Total 940 / 1040 1894 / 2234 340 / 340 Output Total 550 / 550 2275 / 2275 2950 / 2950 700 / 700 Balance -550 / -550 -1335 / -1235 -1056 / -716 -360 / -360 Weight 81.42 kg 81.42 kg 82.871 kg 81.057 kg Microbiology Reports for the Last 24 Hours: Microbiology 09/23/24 14:36 Blood Blood Culture - Preliminary NO GROWTH AFTER 48 HOURS 09/23/24 13:20 Blood Blood Culture - Preliminary NO GROWTH AFTER 48 HOURS The patient's infection will respond to the chosen ABx?: Yes Is the patient receiving the right drug, dose, and route?: Yes Could a more targeted ABx be ordered?: No (SPUTUM CX PENDING OF DOCUMENTATION)
[2024-09-26 07:58] LABS: Anion Gap 8.3 mEq/L (5-15); Basophils # 0.1 K/mm3 (0-0.2); Basophils % 0.5 % (0.1-2.0); Blood Urea Nitrogen 41 mg/dl (9-20); Calcium 8.7 mg/dl (8.4-10.2); Carbon Dioxide 29 mmol/L (22.0-30.0); Chloride 107 mmol/L (98-107); Creatinine Clearance Estimated 41 mL/min (50-200); Eosinophils % 0.4 % (0.1-12.0); Estimated Glomerular Filt Rate 37 ml/min (>60); GFR (African American) 45 ML/MIN (>60); Glucose 127 mg/dl (74-100); Hematocrit 38.4 % (42.0-52.0); Hemoglobin 12.2 g/dL (14.1-18.0); Lymphocytes # 1.5 K/mm3 (0.7-4.5); Lymphocytes % 13.7 % (10-50); Mean Corpuscular HGB Conc 31.8 g/dL (31.8-35.4); Mean Corpuscular Hemoglobin 28.2 pg (27.0-31.2); Mean Corpuscular Volume 88.7 fl (80-94); Mean Platelet Volume 9.4 fl (7.4-10.4); Monocytes # 1.2 K/mm3 (0.1-1.0); Monocytes % 10.9 % (1.7-9.3); Neutrophils # 8.2 K/mm3 (1.8-7.8); Neutrophils % 74.2 % (37.0-80.0); Platelet Count 355 K/mm3 (142-424); Potassium 3.3 mmoL/L (3.5-5.1); Red Blood Count 4.33 M/mm3 (4.60-6.20); Red Cell Distribution Width 16.8 % (11.5-17.5); Sodium 141 mmol/L (136-145)
[2024-09-26] MEDS: CLOPIDOGREL 75MG TAB 75 MG PO (08:19)
[2024-09-26] MEDS: EMPAGLIFLOZIN 25MG TABLET 25 MG PO (08:19)
[2024-09-26] MEDS: buPROPion HCL 100 MG TABLET PO (08:19)
[2024-09-26] MEDS: MEMANTINE 10MG TABLET 10 MG PO (08:20)
[2024-09-26] MEDS: METOPROLOL TARTRATE 50MG TABLET 100 MG PO (08:20)
[2024-09-26] MEDS: PREGABALIN 50MG CAPSULE 150 MG PO (08:20)
[2024-09-26] MEDS: BUMETANIDE 1MG/4ML VIAL 2 MG IV (08:20)
[2024-09-26] MEDS: ASPIRIN EC 81MG TABLET 81 MG PO (08:20)
[2024-09-26 09:19] LABS: Lymphocytes % 31 % (10-50); Monocytes % 2 % (2-9); Neutrophils % 67 % (42-76); Total Cells Counted 100
[2024-09-26 09:20] LABS: Platelet Estimate Normal; RBC Morphology Normal
--- NOTE | 2024-09-26 10:40 | EXP.DC.SUM ---
General Admission date:: 09/23/24 Discharge date: 09/26/24 HPI HPI HPI: Mr. Rice is a 74-year-old male who [facility] Presented with approximately 24 hours of nonproductive cough and dyspnea. History significant for hypertension, hyperlipidemia, diabetes, mild cognitive impairment, COPD, CHF, aortic aneurysm repair. He presented to the ER with worsening shortness of breath over the past 24 to 48 hours. Sats upon arrival by EMS were in the 70s. He was given steroids and DuoNebs and placed on CPAP and route to the ER. On arrival patient's heart rate was elevated above 90, he was hypertensive with systolics in the 150s. Sats in the mid 80s on CPAP at 50% FiO2. Chest imaging obtained in the ED showing diffuse bilateral edema with bilateral effusions. Troponin elevated at 0.14 with severe elevation of BNP at 9900. White count elevated at 16.5. Creatinine 2.1 with BUN of 18. CT of chest did not show any PEs. Did have some mediastinal adenopathy. Due to his acute hypoxemic respiratory failure from suspected CHF versus pneumonia, medicine consulted for admission and further care. Fluids were not administered due to sepsis criteria, instead patient was given dose of Lasix 60 mg IV once and placed on BiPAP with improvement in respiratory status. On arrival to the floor, patient was changed to CPAP as he did not have hypercapnia on his VBG. He is more alert and interacting with staff. Oriented x 2. Family at bedside helps supplement history. Starting to have response to diuretics. Urine bright orange due to taking Azo at home. Hospital Course Hospital Course Hospital Course: 74-year-old male who presents with acute hypoxemic respiratory failure. Findings concerning for CHF versus pneumonia. Discussed case with ER physician, request admission for further management of his respiratory failure and workup of etiology. I agreed to admit for further care. Cardiology consulted on admission. Weaned CPAP. Status post left heart cath on 09/24. Able to wean to room air by day of discharge. Stable to discharge home. Problems addressed as follows: Acute hypoxemic respiratory failure Suspected pneumonia versus pulmonary edema - White count elevated on admission, improved to 11 by day of discharge. Able to wean to room air from CPAP initially on presentation. Responded to diuresis. Initiated on broad-spectrum antibiotics with vancomycin and cefepime. Cultures remained negative. No further antibiotics at discharge, completed course of 5 days of therapy. NSTEMI Combined heart failure CAD Hx of CABG -Echo obtained, read shows grade 2 diastolic dysfunction with EF of 40%. Unsure patient's history but he does report history of CHF. BNP elevated at 9900. Responding to diuresis administered in the ER. Continued Bumex 1 mg IV twice daily during admission. -3 L during admission. Kidney function remained stable at baseline. Able to wean to room air. Cardiology evaluated and was taken for left heart cath. Left heart cath performed 09/24, found to have subtotal occlusion of the second obtuse marginal artery, severe disease of the CAVAZOS graft supplying the LAD, received successful stent to the CAVAZOS graft. Successful stent of the proximal nondominant large RCA and angioplasty of chronically occluded second obtuse marginal. Recommend DAPT therapy. Monitored for 48 hours. Kidney function remained stable. Patient had no further issues. Continue goal-directed therapy as follows: - Continue Plavix 75 mg daily, aspirin 81 mg daily, empagliflozin 25 mg daily, metoprolol tartrate 100 mg twice daily. Initiate irbesartan 37.5 mg daily. Continue Bumex 1 mg daily. Continue home amlodipine 10 mg daily for blood pressure control. CKD: Kidney function stable with BUN 40, creatinine 1.8-20, essentially his baseline. Mild cognitive impairment: Continue memantine 10 mg twice daily GERD: Continue pantoprazole 20 mg daily Neuropathy: Continue Lyrica 150 mg twice daily Held trazodone and tramadol due to concern for mild confusion on presentation. resume with caution upon discharge Diabetes: A1c 7.5, monitored with fingersticks ACHS and treated with sliding scale insulin during admission. Glucose will during. Initiate empagliflozin 25 mg daily. Total time spent on discharge 32 minutes in counseling, documentation, chart review, and direct care with patient. Exam Data for Last 24 hours Vital signs and Labs for Last 24 Hours: Temp Pulse Resp BP Pulse Ox O2 Del Method O2 Flow Rate 98.1 F 69 15 159/71 H 86 L Room Air 2 09/26/24 08:00 09/26/24 08:00 09/26/24 08:00 09/26/24 08:00 09/26/24 09:12 09/26/24 09:12 09/26/24 06:39 FiO2 35 09/24/24 08:00 Laboratory Results - last 24 hr 09/25/24 11:43: POC Glucose 169 H 09/25/24 16:25: POC Glucose 128 H 09/26/24 05:10: POC Glucose 126 H 09/26/24 06:45: WBC 11.0 H D, RBC 4.33 L, Hgb 12.2 L, Hct 38.4 L, MCV 88.7, MCH 28.2, MCHC 31.8, RDW 16.8, Plt Count 355, MPV 9.4, Neut % (Auto) 74.2, Lymph % (Auto) 13.7, [place] % (Auto) 10.9 H, Eos % (Auto) 0.4, Baso % (Auto) 0.5, Neut # (Auto) 8.2 H, Lymph # (Auto) 1.5, [place] # (Auto) 1.2 H, Eos # (Auto) 0.0, Baso # (Auto) 0.1, Total Counted 100, Neutrophils % (Manual) 67, Lymphocytes % (Manual) 31, Monocytes % (Manual) 2, Platelet Estimate Normal, RBC Morphology Normal, Sodium 141, Potassium 3.3 L, Chloride 107, Carbon Dioxide 29, Anion Gap 8.3, BUN 41 H, Creatinine 1.80 H, Estimated Creat Clear 41, Estimated GFR 37 L, Est GFR ( Amer) 45 L, Glucose 127 H, Calcium 8.7 I & O for Last 24 hours: Intake & Output 09/23/24 09/24/24 09/25/24 09/26/24 23:59 23:59 23:59 23:59 Intake Total 940 / 1040 1894 / 2234 340 / 340 Output Total 550 / 550 2275 / 2275 2950 / 2950 700 / 700 Balance -550 / -550 -1335 / -1235 -1056 / -716 -360 / -360 Weight 81.42 kg 81.42 kg 82.871 kg 81.057 kg Microbiology Reports for the Last 24 Hours: Microbiology 09/24/24 17:33 Sputum - Expectorated Sputum Gram Stain - Final 09/24/24 17:33 Sputum - Expectorated Sputum Sputum Culture - Final 09/23/24 14:36 Blood Blood Culture - Preliminary NO GROWTH AFTER 48 HOURS 09/23/24 13:20 Blood Blood Culture - Preliminary NO GROWTH AFTER 48 HOURS Constitutional Constitutional: no acute distress, average body habitus, chronically ill appearing and cooperative *Routine HEENT Exam Head: Present normocephalic Eye: Present EOMI and PERRL ENT: Present mucous membranes moist *Routine Neck Exam Neck: Present supple; Absent lymphadenopathy *Routine Respiratory Exam Respiratory: Present CTA bilaterally *Routine Cardiovascular Exam Cardiovascular: Present RRR *Routine Abdominal Exam Abdominal: Present soft and normoactive bowel sounds; Absent tenderness *Routine Rectal Exam Patient deferred: visual exam *Routine Exam Patient deferred: penile exam *Routine Extremities Exam Extremities: Absent cyanosis, clubbing or edema *Routine Skin Exam Skin: Present warm; Absent rash *Routine Neurological Exam Neurological: Present alert, oriented X3 and moving all extremities; Absent altered mental status Results Data Completed and Pending Labs on day of discharge: Labs from last 24 hours 09/26/24 09/26/24 09/25/24 06:45 05:10 16:25 WBC 11.0 H D RBC 4.33 L Hgb 12.2 L Hct 38.4 L MCV 88.7 MCH 28.2 MCHC 31.8 RDW 16.8 Plt Count 355 MPV 9.4 Neut % (Auto) 74.2 Lymph % (Auto) 13.7 [place] % (Auto) 10.9 H Eos % (Auto) 0.4 Baso % (Auto) 0.5 Neut # (Auto) 8.2 H Lymph # (Auto) 1.5 [place] # (Auto) 1.2 H Eos # (Auto) 0.0 Baso # (Auto) 0.1 Total Counted 100 Neutrophils % (Manual) 67 Lymphocytes % (Manual) 31 Monocytes % (Manual) 2 Platelet Estimate Normal RBC Morphology Normal Sodium 141 Potassium 3.3 L Chloride 107 Carbon Dioxide 29 Anion Gap 8.3 BUN 41 H Creatinine 1.80 H Estimated Creat Clear 41 Estimated GFR 37 L Est GFR ( Amer) 45 L Glucose 127 H POC Glucose 126 H 128 H Calcium 8.7 09/25/24 11:43 WBC RBC Hgb Hct MCV MCH MCHC RDW Plt Count MPV Neut % (Auto) Lymph % (Auto) [place] % (Auto) Eos % (Auto) Baso % (Auto) Neut # (Auto) Lymph # (Auto) [place] # (Auto) Eos # (Auto) Baso # (Auto) Total Counted Neutrophils % (Manual) Lymphocytes % (Manual) Monocytes % (Manual) Platelet Estimate RBC Morphology Sodium Potassium Chloride Carbon Dioxide Anion Gap BUN Creatinine Estimated Creat Clear Estimated GFR Est GFR ( Amer) Glucose POC Glucose 169 H Calcium Preliminary micro results at discharge 09/23/24 14:36 Blood Culture - Preliminary Blood NO GROWTH AFTER 48 HOURS 09/23/24 13:20 Blood Culture - Preliminary Blood NO GROWTH AFTER 48 HOURS DS: Diagnosis Discharge Diagnosis (1) Acute hypoxic respiratory failure: Status: Acute Code(s): J96.01 - Acute respiratory failure with hypoxia (2) HFrEF (heart failure with reduced ejection fraction): Status: Acute Code(s): I50.20 - Unspecified systolic (congestive) heart failure (3) Pneumonia: Status: Acute Code(s): J18.9 - Pneumonia, unspecified organism (4) CHF exacerbation: Status: Acute Code(s): I50.9 - Heart failure, unspecified (5) CKD stage 3a, GFR 45-59 ml/min: Status: Acute Code(s): N18.31 - Chronic kidney disease, stage 3a (6) Diabetes: Status: Acute Code(s): E11.9 - Type 2 diabetes mellitus without complications (7) Hypertension: Status: Acute Code(s): I10 - Essential (primary) hypertension (8) NSTEMI (non-ST elevated myocardial infarction): Status: Acute Code(s): I21.4 - Non-ST elevation (NSTEMI) myocardial infarction (9) Pleural effusion: Status: Acute Code(s): J90 - Pleural effusion, not elsewhere classified (10) Pulmonary edema: Status: Acute Code(s): J81.1 - Chronic pulmonary edema Meds Home Medications and Allergies Home Medications ?Medication ?Instructions ?Recorded ?Confirmed ?Type amlodipine 10 mg tablet 10 mg PO DAILY 02/12/24 09/23/24 History bupropion HCl 100 mg tablet 100 mg PO BID 02/12/24 09/23/24 History cetirizine 10 mg tablet 5 mg PO DAILY 02/12/24 09/23/24 History clopidogrel 75 mg tablet 75 mg PO DAILY 02/12/24 09/23/24 History empagliflozin 25 mg tablet 25 mg PO DAILY 02/12/24 09/23/24 History folic acid 1 mg tablet 2 mg PO DAILY 02/12/24 09/23/24 History memantine 10 mg tablet 10 mg PO BID 02/12/24 09/23/24 History methimazole 10 mg tablet 10 mg PO MOWEFR 02/12/24 09/24/24 History metoprolol tartrate 100 mg tablet 100 mg PO BID 02/12/24 09/23/24 History pregabalin 150 mg capsule 150 mg PO BID 02/12/24 09/23/24 History tramadol 50 mg tablet 100 mg PO DAILY 02/12/24 09/23/24 History trazodone 100 mg tablet 100 mg PO DAILY PRN Sleep 02/12/24 09/23/24 History miconazole nitrate 2 % topical 1 applic topical BID 09/23/24 09/23/24 History powder pantoprazole 20 mg tablet,delayed 20 mg PO DAILY 09/23/24 09/23/24 History release aspirin 81 mg tablet,delayed 81 mg PO DAILY #30 tabs 09/26/24 Rx release bumetanide 1 mg tablet 1 mg PO DAILY #30 tabs 09/26/24 Rx irbesartan 75 mg tablet 37.5 mg (1/2 x 75 mg) PO DAILY 30 09/26/24 Rx days #15 tabs New Prescriptions to Start Prescriptions: Stew Alexis bumetanide Jessica,Stew irbesartan Stew Lopez Allergies Allergy/AdvReac Type Severity Reaction Status Date / Time ibuprofen Allergy Unknown Verified 02/12/24 14:26 Penicillins Allergy Unknown Verified 02/12/24 14:40 Sulfa (Sulfonamide Allergy Unknown Verified 02/12/24 14:40 Antibiotics) Discharge Plan Disposition Patient Disposition: Home Health Service Condition: Fair Discharge Order Discharge Orders: Discharge Order (Routine); Ordered 09/26/24 Ordered By: Stew Lopez Follow up Plan Follow up with: Amarilis Jeffery APRN [Nurse Practitioner] - 09/29/24 1:30 pm Prescriptions/Medication Reconciliation: New aspirin 81 mg Tablet,Delayed Release (Dr/Ec) 81 mg PO DAILY Qty: 30 0RF bumetanide 1 mg tablet 1 mg PO DAILY Qty: 30 0RF irbesartan 75 mg Tablet 37.5 mg PO DAILY 30 Days Qty: 15 0RF Continued clopidogrel 75 mg Tablet 75 mg PO DAILY bupropion HCl 100 mg Tablet 100 mg PO BID amlodipine 10 mg Tablet 10 mg PO DAILY folic acid 1 mg Tablet 2 mg PO DAILY Rx Instructions: everyday but friday empagliflozin 25 mg Tablet 25 mg PO DAILY cetirizine 10 mg Tablet 5 mg PO DAILY metoprolol tartrate 100 mg Tablet 100 mg PO BID tramadol 50 mg Tablet 100 mg PO DAILY trazodone 100 mg Tablet 100 mg PO DAILY PRN (Reason: Sleep) methimazole 10 mg Tablet 10 mg PO memantine 10 mg Tablet 10 mg PO BID pregabalin 150 mg Capsule 150 mg PO BID miconazole nitrate 2 % Powder 1 applic TOPICAL BID pantoprazole 20 mg Tablet,Delayed Release (Dr/Ec) 20 mg PO DAILY Other Ambulatory Orders: Complete Blood Count Auto Diff (Routine) Timeframe: 20240929 Facility: [facility] - Location: Laboratory Ordered By: Amarilis Jeffery Comprehensive Metabolic Panel (Routine) Timeframe: 20240929 Facility: [facility] - Location: Laboratory Ordered By: Amarilis Jeffery Problem Reconciliation Problems Reviewed?: Yes Patient Discharge Instructions ACTIVITY: Continue current activity DIET: continue same diet Patient Instructions: Heart-Healthy Diet, DI for Heart Failure, DI for Cardiac Catheterization, DI for Surgical Site Infection, Stop Light Heart Failure Print Language: Czech Providers Primary Care Provider: Provider,Referral Admit Provider: Stew Lopez Attending Provider: Stew Lopez
[2024-09-26] MEDS: LEVOFLOXACIN/D5W 750 MG/150 ML 750 MG/150 ML PIGGYBACK 100 MG IV (11:07)
[2024-09-26] MEDS: IRBESARTAN 75MG TABLET 37.5 MG PO (11:07)
[2024-09-26] MEDS: humaLOG 100 UNITS/ML 10ML VIAL (SSI) SUBCUT (11:14)
[2024-09-26 11:31] LABS: POC Glucose,Bedside 208 (70-110)
[2024-09-26] MEDS: HYDROCODONE/APAP 5/325 MG TABLET 1 TAB PO (12:19)
== END 2024-09-26 13:19 | disposition home or self-care (01) | DRG 321 ==
LOC: ER 15:05 → 2ND 16:03
PROVIDERS: Internal Medicine; Admitting Provider Internal Medicine Adolescent Medicine; Emergency Provider Emergency Medicine; Visit Provider Internal Medicine Adolescent Medicine
PROC: 4A023N7 Measurement of Cardiac Sampling and Pressure, Left Heart, Percutaneous Approach (ICD-10-PCS; CPT 93452; principal; 2024-09-24 12:00)
DX: T82.218A Other mechanical complication of coronary artery bypass graft, initial encounter (principal); I21.A9 Other myocardial infarction type; J15.9 Unspecified bacterial pneumonia; J96.01 Acute respiratory failure with hypoxia; I50.43 Acute on chronic combined systolic (congestive) and diastolic (congestive) heart failure; I13.0 Hypertensive heart and chronic kidney disease with heart failure and stage 1 through stage 4 chronic kidney disease, or unspecified chronic kidney disease; N17.9 Acute kidney failure, unspecified; I77.1 Stricture of artery; N18.31 Chronic kidney disease, stage 3a; Z95.1 Presence of aortocoronary bypass graft; J44.9 Chronic obstructive pulmonary disease, unspecified; Z87.891 Personal history of nicotine dependence; Z88.0 Allergy status to penicillin; Z88.2 Allergy status to sulfonamides; Z88.6 Allergy status to analgesic agent; Z93.3 Colostomy status; E11.22 Type 2 diabetes mellitus with diabetic chronic kidney disease; G31.84 Mild cognitive impairment of uncertain or unknown etiology
CPT/HCPCS: 36415; 71045; 71275; 74177; 80048; 80053; 82803; 82962; 83605; 83735; 83880; 84484; 85007; 85014; 85018; 85025; 85048; 85049; 85347; 85610; 85730; 87040; 87070; 87205; 92920; 92928; 92937; 93005; 93306; 94640; 94760; 94761; 97163; 97166; 99152; 99153; 99291; C1725; C1760; C1769; C1874; C1894; C9600; C9604; J1200; J1644; J1650; J1938; J1939; J1956; J2250; J3010; J3372; J3475; J7613; J7620; Q9967

== ENCOUNTER 2024-09-29 12:31 | Outpatient (CLI) | payer OTHER, MEDICARE, SELFPAY ==
[2024-09-29 13:36] LABS: Basophils # 0.1 K/mm3 (0-0.2); Basophils % 0.5 % (0.1-2.0); Eosinophils # 0.7 Kmm3 (0.0-0.4); Eosinophils % 4.3 % (0.1-12.0); Hematocrit 38.9 % (42.0-52.0); Hemoglobin 12.4 g/dL (14.1-18.0); Immature Granulocytes # 0.15 10^3uL; Immature Granulocytes % 0.9 %; Lymphocytes # 1.2 K/mm3 (0.7-4.5); Lymphocytes % 7.1 % (10-50); Mean Corpuscular HGB Conc 31.9 g/dL (31.8-35.4); Mean Corpuscular Hemoglobin 28.1 pg (27.0-31.2); Mean Corpuscular Volume 88.2 fl (80-94); Mean Platelet Volume 9.6 fl (7.4-10.4); Monocytes # 1.7 K/mm3 (0.1-1.0); Monocytes % 10.1 % (1.7-9.3); Neutrophils # 12.8 K/mm3 (1.8-7.8); Neutrophils % 77.1 % (37.0-80.0); Nucleated Red Blood Cells # 0 10^3/uL; Nucleated Red Blood Cells % 0 %; Platelet Count 366 K/mm3 (142-424); Red Blood Count 4.41 M/mm3 (4.60-6.20); Red Cell Distribution Width 16.2 % (11.5-17.5); Red Cell Distribution Width-SD 52.4 fL; White Blood Count 16.6 K/mm3 (4.8-10.8)
[2024-09-29 13:38] LABS: MANUAL DIFFERENTIAL MANUAL DIFFERENTIAL (MANUAL DIFF)
[2024-09-29 13:59] LABS: Eosinophils % 5 % (0-3); Lymphocytes % 13 % (10-50); Monocytes % 5 % (2-9); Neutrophils % 77 % (42-76); Platelet Estimate Normal; RBC Morphology Normal; Total Cells Counted 100
[2024-09-29 14:13] LABS: Alanine Aminotransferase 14 U/L (12-78); Albumin Level 3.4 g/dl (3.5-5.0); Albumin/Globulin Ratio 1.2 (1.1-1.8); Alkaline Phosphatase 94 U/L (38-126); Anion Gap 9.6 mEq/L (5-15); Aspartate Amino Transferase 22 U/L (17-59); Bilirubin,Total 0.7 mg/dl (0.2-1.3); Blood Urea Nitrogen 27 mg/dl (9-20); Calcium 8.6 mg/dl (8.4-10.2); Carbon Dioxide 26 mmol/L (22.0-30.0); Chloride 103 mmol/L (98-107); Estimated Glomerular Filt Rate 39 ml/min (>60); GFR (African American) 48 ML/MIN (>60); Globulin 2.9 g/dL (1.3-3.2); Glucose 185 mg/dl (74-100); Potassium 4.6 mmoL/L (3.5-5.1); Sodium 134 mmol/L (136-145); Total Protein,Serum 6.3 g/dl (6.3-8.2)
[2024-09-29 15:16] LABS: Albumin Level 5.5 g/dl (3.5-5.0)
[2024-09-29 15:19] LABS: Alanine Aminotransferase 46 U/L (12-78); Aspartate Amino Transferase 88 U/L (17-59); Bilirubin,Unconjugated 0.5 mg/dL (0.0-1.1); Total Protein,Serum 8.3 g/dl (6.3-8.2)
[2024-09-29 15:20] LABS: Alkaline Phosphatase 41 U/L (38-126); Bilirubin,Direct 1.6 mg/dl (0.0-0.4); Bilirubin,Indirect 0.4 mg/dL (0.0-0.9); Chol/HDL Ratio 9.7 (1-3.5); Cholesterol 301 mg/dl (140-200); HDL Cholesterol 31 mg/dl (40-60); Triglycerides 273 mg/dl (30-150); VLDL Cholesterol 55 mg/dL (0-40)
[2024-09-29 15:31] LABS: Direct LDL Cholesterol 216.52 mg/dL (100-129)
== END 2024-09-29 23:59 | disposition home or self-care (01) ==
PROVIDERS: Internal Medicine; Visit Provider Nurse Practitioner
DX: I11.0 Hypertensive heart disease with heart failure (principal); I50.20 Unspecified systolic (congestive) heart failure; I21.4 Non-ST elevation (NSTEMI) myocardial infarction; E78.5 Hyperlipidemia, unspecified
CPT/HCPCS: 36415; 80053; 80061; 80076; 85007; 85025; 85027

== ENCOUNTER 2024-10-04 12:56 | Emergency (ER) | payer OTHER, SELFPAY ==
[2024-10-04] VITALS (13 sets, daily range): BP systolic 95–132; BP diastolic 36–74; PULSE 51–77; RESP 16–20; TEMP 36.4–36.6; O2SAT 92–100; BMI 23.7
--- NOTE | 2024-10-04 13:04 | ECG_ITS ---
APPROVED REPORT Exam: Resting ECG HR:56 bpm ECG Measurements Heart Rate 56 AXES SD 193 P 61 QRSd 146 QRS -57 QT 482 T 88 QTc 473 Conclusion SINUS BRADYCARDIA LEFT AXIS DEVIATION [QRS AXIS < -30] LEFT BUNDLE BRANCH BLOCK [120+ ms QRS DURATION, 80+ ms Q/S IN V1/V2, 85+ ms R IN I/aVL/V5/V6] ABNORMAL ECG UNCONFIRMED REPORT Electronically signed by : ECHO MEJIA, 10/05/2024 01:44:39
--- NOTE | 2024-10-04 13:06 | ED_ITS ---
Discharge Plan Disposition Patient Disposition: Xfer Short-Term Hosp Condition: Fair Prescriptions Prescriptions: No Action apixaban 5 mg tablet 5 mg PO BID spironolactone [Aldactone] 25 mg tablet 12.5 mg PO DAILY Qty: 30 5RF clopidogrel 75 mg Tablet 75 mg PO DAILY bupropion HCl 100 mg Tablet 100 mg PO BID amlodipine 10 mg Tablet 10 mg PO DAILY folic acid 1 mg Tablet 2 mg PO DAILY Rx Instructions: everyday but friday empagliflozin 25 mg Tablet 25 mg PO DAILY cetirizine 10 mg Tablet 5 mg PO DAILY metoprolol tartrate 100 mg Tablet 100 mg PO BID tramadol 50 mg Tablet 100 mg PO DAILY trazodone 100 mg Tablet 100 mg PO DAILY PRN (Reason: Sleep) methimazole 10 mg Tablet 10 mg PO MOWEFR memantine 10 mg Tablet 10 mg PO BID pregabalin 150 mg Capsule 150 mg PO BID miconazole nitrate 2 % Powder 1 applic TOPICAL BID pantoprazole 20 mg Tablet,Delayed Release (Dr/Ec) 20 mg PO DAILY aspirin 81 mg Tablet,Delayed Release (Dr/Ec) 81 mg PO DAILY Qty: 30 0RF bumetanide 1 mg tablet 1 mg PO DAILY Qty: 30 0RF irbesartan 75 mg Tablet 37.5 mg PO DAILY 30 Days Qty: 15 0RF Referrals Follow up/Referrals: Provider,Referral, MD [Primary Care Provider] - See instructions Activity Restrictions/Add. Instructions Additional Instructions/Restrictions: Patient has been accepted at [facility] Clinical Impressions Clinical Impression: Acute kidney injury (nontraumatic), Multifocal pneumonia, Adult failure to thrive Stand Alone Forms Stand Alone Forms: Transfer Record - ED Print Language Print Language: Pashto Discharge ED Provider: Lucy Ponce HPI <KLAUS Schulte - Last Filed: 10/04/24 18:35> General Chief Complaint: PAIN Stated Complaint: Chest pain, low oxygen Time Seen by Provider: 10/04/24 13:05 History of Present Illness HPI narrative: Patient presents for evaluation of chest pain. Patient reports that he has been having chest pain located bilaterally upon deep inspiration only. He denies any fever chills hemoptysis hematochezia melena nausea vomiting diarrhea. Patient has a significant past medical history of reduced ejection fraction heart failure, CHF, chronic respiratory failure on oxygen only at nighttime, coronary artery disease status post PCI with stents x 2 last week chronic kidney disease. Patient presented last week with dyspnea and found to be in respiratory failure with pulmonary edema CHF and ultimately admitted to the hospital. He underwent cardiac catheterization with 2 stents placed by cardiology. He was ultimately discharged home on home oxygen 16/12 along with oral antibiotics for suspected pneumonia Bumex for diuretic and irbesartan. Patient's family reports that he has done poorly since discharge with decreased oral intake, decreased ostomy output, increasing weakness requiring full assist to do all of his activities of daily living, and now chest pain with deep inspiration. Related Data Home Medications ?Medication ?Instructions ?Recorded ?Confirmed amlodipine 10 mg tablet 10 mg PO DAILY 02/12/24 09/29/24 bupropion HCl 100 mg tablet 100 mg PO BID 02/12/24 09/29/24 cetirizine 10 mg tablet 5 mg PO DAILY 02/12/24 09/29/24 clopidogrel 75 mg tablet 75 mg PO DAILY 02/12/24 09/29/24 empagliflozin 25 mg tablet 25 mg PO DAILY 02/12/24 09/29/24 folic acid 1 mg tablet 2 mg PO DAILY 02/12/24 09/29/24 memantine 10 mg tablet 10 mg PO BID 02/12/24 09/29/24 methimazole 10 mg tablet 10 mg PO MOWEFR 02/12/24 09/29/24 metoprolol tartrate 100 mg tablet 100 mg PO BID 02/12/24 09/29/24 pregabalin 150 mg capsule 150 mg PO BID 02/12/24 09/29/24 tramadol 50 mg tablet 100 mg PO DAILY 02/12/24 09/29/24 trazodone 100 mg tablet 100 mg PO DAILY PRN Sleep 02/12/24 09/29/24 miconazole nitrate 2 % topical 1 applic topical BID 09/23/24 09/29/24 powder pantoprazole 20 mg tablet,delayed 20 mg PO DAILY 09/23/24 09/29/24 release apixaban 5 mg tablet 5 mg PO BID 09/29/24 09/29/24 Previous Rx's ?Medication ?Instructions ?Recorded aspirin 81 mg tablet,delayed 81 mg PO DAILY #30 tabs 09/26/24 release bumetanide 1 mg tablet 1 mg PO DAILY #30 tabs 09/26/24 irbesartan 75 mg tablet 37.5 mg (1/2 x 75 mg) PO DAILY 30 09/26/24 days #15 tabs spironolactone 25 mg tablet 12.5 mg (1/2 x 25 mg) PO DAILY #30 09/29/24 (Aldactone) tabs Allergies Allergy/AdvReac Type Severity Reaction Status Date / Time ibuprofen Allergy Unknown Unknown Verified 10/04/24 14:32 allergy reaction Penicillins Allergy Unknown Unknown Verified 10/04/24 14:32 allergy reaction Sulfa (Sulfonamide Allergy Unknown Unknown Verified 10/04/24 14:32 Antibiotics) allergy reaction PFSH <KLAUS Schulte - Last Filed: 10/04/24 18:35> [facility] Disclaimer: The information contained in this section may have been updated after the patient was seen, as this information can be updated by other users. Medical History Colostomy in place Hx SBO Vascular dementia COPD (chronic obstructive pulmonary disease) Surgical History H/O heart artery stent Hx of cardiac cath Hx of CABG Family History Other No significant family history Social History Smoking Status: Former smoker alcohol intake: never current occupational status: retired Travel in the last 8 weeks?: None Have you lived/traveled outside [place] in past 30 days?: No Contact w/someone who lives/traveled outside US past 30 days?: No Exposure to someone with infectious disease in past 14 days?: No Do you have a fever (greater than 100.4 F or 38 C)?: No Have you tested positive for COVID-19?: No Exposed to someone with COVID-19 in past 14 days?: No Do you have a sore throat?: No Do you have a cough?: No Do you have any weakness?: No Do you have any diarrhea?: No Are you experiencing any unusual bleeding?: No Do you have any muscle aches/pain?: No Do you have any abdominal pain?: No Are you experiencing loss of taste or smell?: No Other Medical History Have you received the Flu Vaccine for this season: No Have you received the Pneumonia Vaccine: Yes <KLAUS Schulte - Last Filed: 10/04/24 18:35> ROS Obtained: Yes Systems reviewed as appropriate & no additional complaints except as documented Physical Exam <KLAUS Schulte - Last Filed: 10/04/24 18:35> General General appearance: alert and in no apparent distress Respiratory Respiratory exam: Present normal lung sounds bilaterally Cardiovascular Cardiovascular exam: Present normal rhythm and bradycardia Neurological Exam Neurological exam: Present alert and oriented X3 HEART Score <KLAUS Schulte - Last Filed: 10/04/24 18:35> HEART Score HEART Score assessment performed?: Yes History (anamnesis): Slightly suspicious ECG: Non-specific disturbance Age: >65 years Risk factors: Atherosclerosis history Troponin: </= normal limit HEART Score: 5 <Sorin Pham MD - Last Filed: 10/04/24 23:37> HEART Score HEART Score: 5 Critical Care <KLAUS Schulte - Last Filed: 10/04/24 18:35> Critical Care Time Critical Care Time: Yes Attestation: On 10/04/24, the high probability of a clinically significant, sudden or life threatening deterioration of the following system(s) required my full and direct attention, intervention and personal management. The time I documented below is in addition to time spent performing reported procedures but includes the following listed in this critical care notation. Total Time Total Critical Care Time: 35 Medical Decision Making <KLAUS Schulte - Last Filed: 10/04/24 18:35> Medical Records Medical records reviewed: Yes I reviewed the patient's medical records. Maruks Inquiry Pt receiving controlled substance: No Vital Signs Vital Signs: 10/04/24 13:13 10/04/24 13:17 10/04/24 13:44 Temperature 97.6 F Temperature Source Oral Pulse Rate 55 L 77 Pulse Rate [Left] 57 L Respiratory Rate 18 16 Blood Pressure 129/52 L 132/74 Blood Pressure [Right Arm] 129/52 L Blood Pressure Mean [Right Arm] 77 Blood Pressure Source Automatic Cuff Blood Pressure Source [Right Arm] Automatic Cuff Blood Pressure Position Blood Pressure Position [Right Arm] Sitting 02 Sat by Pulse Oximetry 93 L 95 100 Oxygen Delivery Method Room Air Room Air Room Air Oxygen Flow Rate (LPM) 10/04/24 15:00 10/04/24 15:31 10/04/24 16:00 Temperature Temperature Source Pulse Rate 53 L 53 L 51 L Pulse Rate [Left] Respiratory Rate Blood Pressure 95/41 L 104/42 L 106/36 L Blood Pressure [Right Arm] Blood Pressure Mean [Right Arm] Blood Pressure Source Automatic Cuff Blood Pressure Source [Right Arm] Blood Pressure Position Blood Pressure Position [Right Arm] 02 Sat by Pulse Oximetry 95 96 92 L Oxygen Delivery Method Room Air Room Air Room Air Oxygen Flow Rate (LPM) 10/04/24 16:30 10/04/24 17:13 10/04/24 17:15 Temperature Temperature Source Pulse Rate 51 L 53 L 53 L Pulse Rate [Left] Respiratory Rate Blood Pressure 116/45 L 120/44 L 114/43 L Blood Pressure [Right Arm] Blood Pressure Mean [Right Arm] Blood Pressure Source Blood Pressure Source [Right Arm] Blood Pressure Position Blood Pressure Position [Right Arm] 02 Sat by Pulse Oximetry 94 L 92 L 93 L Oxygen Delivery Method Room Air Nasal Cannula Nasal Cannula Oxygen Flow Rate (LPM) 2 2 10/04/24 17:45 10/04/24 18:00 10/04/24 18:30 Temperature Temperature Source Pulse Rate 52 L 52 L 52 L Pulse Rate [Left] Respiratory Rate Blood Pressure 118/45 L 121/51 L 126/56 L Blood Pressure [Right Arm] Blood Pressure Mean [Right Arm] Blood Pressure Source Blood Pressure Source [Right Arm] Blood Pressure Position Blood Pressure Position [Right Arm] 02 Sat by Pulse Oximetry 92 L 96 96 Oxygen Delivery Method Nasal Cannula Nasal Cannula Nasal Cannula Oxygen Flow Rate (LPM) 2 2 2 10/04/24 20:25 Temperature 97.9 F Temperature Source Oral Pulse Rate 54 L Pulse Rate [Left] Respiratory Rate 20 Blood Pressure 122/51 L Blood Pressure [Right Arm] Blood Pressure Mean [Right Arm] Blood Pressure Source Automatic Cuff Blood Pressure Source [Right Arm] Blood Pressure Position Supine Blood Pressure Position [Right Arm] 02 Sat by Pulse Oximetry Oxygen Delivery Method Nasal Cannula Oxygen Flow Rate (LPM) 2 Lab Data Lab results reviewed: Yes I reviewed the patient's lab results. Labs: Lab Results 10/04/24 13:22: WBC 12.9 H, RBC 4.21 L, Hgb 11.4 L, Hct 36.7 L, MCV 87.2, MCH 27.1, MCHC 31.1 L, RDW 15.7, Plt Count 528 H, MPV 9.3, Neut % (Auto) 76.1, Lymph % (Auto) 11.1, Waller % (Auto) 7.9, Eos % (Auto) 3.5, Baso % (Auto) 0.9, Neut # (Auto) 9.8 H, Lymph # (Auto) 1.4, Waller # (Auto) 1.0, Eos # (Auto) 0.5 H, Baso # (Auto) 0.1, PT 11.9, INR 1.07, Sodium 136, Potassium 3.8, Chloride 99, Carbon Dioxide 31 H, Anion Gap 9.8, BUN 20, Creatinine 2.10 H, Estimated GFR 31 L, Est GFR ( Amer) 37 L, Glucose 203 H, Calcium 8.6, Total Bilirubin 0.5, AST 30, ALT 35, Alkaline Phosphatase 229 H, Troponin I 0.04 H, NT-Pro-B Natriuret Pep 6450 H, Total Protein 6.9, Albumin 3.4 L, Globulin 3.5 H, Albumin/Globulin Ratio 1.0 L, Procalcitonin 0.224 10/04/24 15:31: Troponin I 0.03 10/04/24 15:32: VBG pH 7.35, VBG pCO2 54.2 H, VBG pO2 45.0 H, VBG HCO3 29.5, VBG Total CO2 31.1 H, VBG O2 Saturation 80.2 H, VBG Base Excess 3.9 H, VBG Lactic Acid 2.3 H 10/04/24 17:45: SARS-CoV-2 (PCR) Not detected, Influenza A Untype (PCR) Not detected, Influenza Type B (PCR) Not detected 10/04/24 19:25: Troponin I 0.03 10/04/24 13:22 10/04/24 13:22 Response Orders (Tests/Meds): ED MEDICATIONS Discontinued Medications Generic Name Dose Route Start Last Admin Trade Name Freq PRN Reason Stop Dose Admin Azithromycin 500 mg 10/04/24 16:38 10/04/24 16:56 Azithromycin 250mg Tablet PO 10/04/24 16:39 500 mg ONCE ONE Administration Ceftriaxone Sodium 1 gm/ 50 mls @ 100 mls/hr 10/04/24 16:45 10/04/24 16:56 Sodium Chloride IV 10/14/24 16:44 100 mls/hr Q24H SHAISTA Administration Iopamidol 100 ml 10/04/24 15:15 10/04/24 15:17 Iopamidol-370 (76%);100ml Bottle IV 10/04/24 15:16 100 ml ONCE ONE Administration Sodium Chloride 50 ml 10/04/24 15:15 10/04/24 15:16 0.9 % Sodium Chloride 50 Ml Vial IV 10/04/24 15:16 50 ml ONCE ONE Administration Sodium Chloride 10 ml 10/04/24 15:15 10/04/24 15:17 Sodium Chloride 0.9% 10ml Syr (Rad Only) IV 11/03/24 15:14 10 ml NEEDED PRN Administration Maintain IV Site ORDERS Category Date Time Status CT angio chest PE protocol Stat Cat Scan 10/04/24 13:16 Completed BNP [NT Pro Brain Natriuretic Pep.] Stat Lab 10/04/24 13:22 Completed CBC w/Auto Diff [Complete Blood Count Auto Diff] Stat Lab 10/04/24 13:22 Completed CMP [Comprehensive Metabolic Panel] Stat Lab 10/04/24 13:22 Completed INR [Prothrombin Time INR] Stat Lab 10/04/24 13:22 Completed Procalcitonin Stat Lab 10/04/24 13:22 Completed Rapid PCR Covid and Flu A/B Stat Lab 10/04/24 17:45 Completed Trop I [Troponin I] Stat Lab 10/04/24 13:22 Completed Troponin I Q3H Lab 10/04/24 15:31 Completed Troponin I Q3H Lab 10/04/24 19:25 Completed Blood Culture Stat Micro 10/04/24 16:53 Received VBG [Venous Blood Gas] Stat RT 10/04/24 15:32 Completed Tissue Perfus/Sepsis Re-Eval Sepsis Re-Evaluation Performed: Yes Date Performed: 10/04/24 Time Performed: 18:35 MDM Narrative Medical Decision Narrative: In summary patient is a 74-year-old male who presents to the emergency department for evaluation of chest pain with inspiration. Patient has a significant past medical history of reduced ejection fraction heart failure, CHF, chronic respiratory failure on oxygen only at nighttime, coronary artery disease status post PCI with stents x 2 last week chronic kidney disease. Patient presented last week with dyspnea and found to be in respiratory failure with pulmonary edema CHF and ultimately admitted to the hospital. He underwent cardiac catheterization with 2 stents placed by cardiology. He was ultimately discharged home on home oxygen 24/7 along with oral antibiotics for suspected pneumonia Bumex for diuretic and irbesartan. Patient's family reports that he has done poorly since discharge with decreased oral intake, decreased ostomy output, increasing weakness requiring full assist to do all of his activities of daily living, and now chest pain with deep inspiration. Patient is initially hemodynamically stable with a blood pressure 129/52 with a heart rate of 55 with sinus bradycardia on the bedside monitor breathing 18 times a minute satting at 93% on room air upon arrival, afebrile at 97.6. Physical exam is remarkable for clear breath sounds heard to the bases without adventitious sounds no increased work of breathing or accessory muscle use. There is no dependent edema noted. Abdomen soft nontender no rebound no guarding no rigidity. Differential diagnosis includes pulmonary embolism versus pneumonia versus CHF versus ACS etc. Initial workup will be conducted with hematologic labs twelve-lead EKG CTA PE protocol. Initial interventions were considered however given patient's multiple medical comorbidities and currently hemodynamically stable deferred until a clear picture occurs with WIGGINS. Initial workup reviewed by me and his white count is 12.9 with a hemoglobin hematocrit of 11.4 and 36.7 respectively platelet count is 528 absolute neutrophil count is 9.8 INR is 1.07 VBG shows a pH of 7.35 pCO2 is 54.2 VBG lactic acid 2.3 CO2 is 31 creatinine is 2.1 GFR is 31 alk phos is 229 initial troponin is 0.03. NT proBNP is 6450 albumin is down to 3.4 procalcitonin is 0.224 and my informal interpretation of his CTA PE protocol in comparison to the one ordered last week on 23 September shows improved pulmonary edema however shows persistent infiltrate in multifocal fashion left greater than right prior to radiology read. I deferred fluid resuscitation for his MARJORIE pneumonia as patient is hemodynamically stable and has a history of CHF but I did start broad-spectrum antibiotics with azithromycin and Rocephin after blood cultures obtained. Please see final read for formal interpretation. Given his MARJORIE multifocal pneumonia and failure to thrive I had interactive discussion with hospital medicine here as patient initially refused transfer to the [facility] regarding patient presentation WIGGINS and management. Hospital medicine came and evaluated patient had a direct discussion with the family and via shared decision making they felt that patient would benefit from placement as they could not care for him currently. Hospital medicine talked to case management and recommended [facility] the [facility] due to the fact that [facility]. Given that I had interactive discussion with hospital medicine at the [facility] regarding patient presentation WIGGINS and management and patient has been accepted for transfer to Dr. Giraldo. <Sorin Pham MD - Last Filed: 10/04/24 23:37> Vital Signs Vital Signs: 10/04/24 13:13 10/04/24 13:17 10/04/24 13:44 Temperature 97.6 F Temperature Source Oral Pulse Rate 55 L 77 Pulse Rate [Left] 57 L Respiratory Rate 18 16 Blood Pressure 129/52 L 132/74 Blood Pressure [Right Arm] 129/52 L Blood Pressure Mean [Right Arm] 77 Blood Pressure Source Automatic Cuff Blood Pressure Source [Right Arm] Automatic Cuff Blood Pressure Position Blood Pressure Position [Right Arm] Sitting 02 Sat by Pulse Oximetry 93 L 95 100 Oxygen Delivery Method Room Air Room Air Room Air Oxygen Flow Rate (LPM) 10/04/24 15:00 10/04/24 15:31 10/04/24 16:00 Temperature Temperature Source Pulse Rate 53 L 53 L 51 L Pulse Rate [Left] Respiratory Rate Blood Pressure 95/41 L 104/42 L 106/36 L Blood Pressure [Right Arm] Blood Pressure Mean [Right Arm] Blood Pressure Source Automatic Cuff Blood Pressure Source [Right Arm] Blood Pressure Position Blood Pressure Position [Right Arm] 02 Sat by Pulse Oximetry 95 96 92 L Oxygen Delivery Method Room Air Room Air Room Air Oxygen Flow Rate (LPM) 10/04/24 16:30 10/04/24 17:13 10/04/24 17:15 Temperature Temperature Source Pulse Rate 51 L 53 L 53 L Pulse Rate [Left] Respiratory Rate Blood Pressure 116/45 L 120/44 L 114/43 L Blood Pressure [Right Arm] Blood Pressure Mean [Right Arm] Blood Pressure Source Blood Pressure Source [Right Arm] Blood Pressure Position Blood Pressure Position [Right Arm] 02 Sat by Pulse Oximetry 94 L 92 L 93 L Oxygen Delivery Method Room Air Nasal Cannula Nasal Cannula Oxygen Flow Rate (LPM) 2 2 10/04/24 17:45 10/04/24 18:00 10/04/24 18:30 Temperature Temperature Source Pulse Rate 52 L 52 L 52 L Pulse Rate [Left] Respiratory Rate Blood Pressure 118/45 L 121/51 L 126/56 L Blood Pressure [Right Arm] Blood Pressure Mean [Right Arm] Blood Pressure Source Blood Pressure Source [Right Arm] Blood Pressure Position Blood Pressure Position [Right Arm] 02 Sat by Pulse Oximetry 92 L 96 96 Oxygen Delivery Method Nasal Cannula Nasal Cannula Nasal Cannula Oxygen Flow Rate (LPM) 2 2 2 10/04/24 20:25 Temperature 97.9 F Temperature Source Oral Pulse Rate 54 L Pulse Rate [Left] Respiratory Rate 20 Blood Pressure 122/51 L Blood Pressure [Right Arm] Blood Pressure Mean [Right Arm] Blood Pressure Source Automatic Cuff Blood Pressure Source [Right Arm] Blood Pressure Position Supine Blood Pressure Position [Right Arm] 02 Sat by Pulse Oximetry Oxygen Delivery Method Nasal Cannula Oxygen Flow Rate (LPM) 2 Lab Data Labs: Lab Results 10/04/24 13:22: WBC 12.9 H, RBC 4.21 L, Hgb 11.4 L, Hct 36.7 L, MCV 87.2, MCH 27.1, MCHC 31.1 L, RDW 15.7, Plt Count 528 H, MPV 9.3, Neut % (Auto) 76.1, Lymph % (Auto) 11.1, Waller % (Auto) 7.9, Eos % (Auto) 3.5, Baso % (Auto) 0.9, Neut # (Auto) 9.8 H, Lymph # (Auto) 1.4, Waller # (Auto) 1.0, Eos # (Auto) 0.5 H, Baso # (Auto) 0.1, PT 11.9, INR 1.07, Sodium 136, Potassium 3.8, Chloride 99, Carbon Dioxide 31 H, Anion Gap 9.8, BUN 20, Creatinine 2.10 H, Estimated GFR 31 L, Est GFR ( Amer) 37 L, Glucose 203 H, Calcium 8.6, Total Bilirubin 0.5, AST 30, ALT 35, Alkaline Phosphatase 229 H, Troponin I 0.04 H, NT-Pro-B Natriuret Pep 6450 H, Total Protein 6.9, Albumin 3.4 L, Globulin 3.5 H, Albumin/Globulin Ratio 1.0 L, Procalcitonin 0.224 10/04/24 15:31: Troponin I 0.03 10/04/24 15:32: VBG pH 7.35, VBG pCO2 54.2 H, VBG pO2 45.0 H, VBG HCO3 29.5, VBG Total CO2 31.1 H, VBG O2 Saturation 80.2 H, VBG Base Excess 3.9 H, VBG Lactic Acid 2.3 H 10/04/24 17:45: SARS-CoV-2 (PCR) Not detected, Influenza A Untype (PCR) Not detected, Influenza Type B (PCR) Not detected 10/04/24 19:25: Troponin I 0.03 Response Orders (Tests/Meds): ED MEDICATIONS Discontinued Medications Generic Name Dose Route Start Last Admin Trade Name Freq PRN Reason Stop Dose Admin Azithromycin 500 mg 10/04/24 16:38 10/04/24 16:56 Azithromycin 250mg Tablet PO 10/04/24 16:39 500 mg ONCE ONE Administration Ceftriaxone Sodium 1 gm/ 50 mls @ 100 mls/hr 10/04/24 16:45 10/04/24 16:56 Sodium Chloride IV 10/14/24 16:44 100 mls/hr Q24H SHAISTA Administration Iopamidol 100 ml 10/04/24 15:15 10/04/24 15:17 Iopamidol-370 (76%);100ml Bottle IV 10/04/24 15:16 100 ml ONCE ONE Administration Sodium Chloride 50 ml 10/04/24 15:15 10/04/24 15:16 0.9 % Sodium Chloride 50 Ml Vial IV 10/04/24 15:16 50 ml ONCE ONE Administration Sodium Chloride 10 ml 10/04/24 15:15 10/04/24 15:17 Sodium Chloride 0.9% 10ml Syr (Rad Only) IV 11/03/24 15:14 10 ml NEEDED PRN Administration Maintain IV Site ORDERS Category Date Time Status CT angio chest PE protocol Stat Cat Scan 10/04/24 13:16 Completed BNP [NT Pro Brain Natriuretic Pep.] Stat Lab 10/04/24 13:22 Completed CBC w/Auto Diff [Complete Blood Count Auto Diff] Stat Lab 10/04/24 13:22 Completed CMP [Comprehensive Metabolic Panel] Stat Lab 10/04/24 13:22 Completed INR [Prothrombin Time INR] Stat Lab 10/04/24 13:22 Completed Procalcitonin Stat Lab 10/04/24 13:22 Completed Rapid PCR Covid and Flu A/B Stat Lab 10/04/24 17:45 Completed Trop I [Troponin I] Stat Lab 10/04/24 13:22 Completed Troponin I Q3H Lab 10/04/24 15:31 Completed Troponin I Q3H Lab 10/04/24 19:25 Completed Blood Culture Stat Micro 10/04/24 16:53 Received VBG [Venous Blood Gas] Stat RT 10/04/24 15:32 Completed MDM Narrative Medical Decision Narrative: In summary patient is a 74-year-old male who presents to the emergency department for evaluation of chest pain with inspiration. Patient has a significant past medical history of reduced ejection fraction heart failure, CHF, chronic respiratory failure on oxygen only at nighttime, coronary artery disease status post PCI with stents x 2 last week chronic kidney disease. Patient presented last week with dyspnea and found to be in respiratory failure with pulmonary edema CHF and ultimately admitted to the hospital. He underwent cardiac catheterization with 2 stents placed by cardiology. He was ultimately discharged home on home oxygen 24/ along with oral antibiotics for suspected pneumonia Bumex for diuretic and irbesartan. Patient's family reports that he has done poorly since discharge with decreased oral intake, decreased ostomy output, increasing weakness requiring full assist to do all of his activities of daily living, and now chest pain with deep inspiration. Patient is initially hemodynamically stable with a blood pressure 129/52 with a heart rate of 55 with sinus bradycardia on the bedside monitor breathing 18 times a minute satting at 93% on room air upon arrival, afebrile at 97.6. Physical exam is remarkable for clear breath sounds heard to the bases without adventitious sounds no increased work of breathing or accessory muscle use. There is no dependent edema noted. Abdomen soft nontender no rebound no guarding no rigidity. Differential diagnosis includes pulmonary embolism versus pneumonia versus CHF versus ACS etc. Initial workup will be conducted with hematologic labs twelve-lead EKG CTA PE protocol. Initial interventions were considered however given patient's multiple medical comorbidities and currently hemodynamically stable deferred until a clear picture occurs with WIGGINS. Initial workup reviewed by me and his white count is 12.9 with a hemoglobin hematocrit of 11.4 and 36.7 respectively platelet count is 528 absolute neutrophil count is 9.8 INR is 1.07 VBG shows a pH of 7.35 pCO2 is 54.2 VBG lactic acid 2.3 CO2 is 31 creatinine is 2.1 GFR is 31 alk phos is 229 initial troponin is 0.03. NT proBNP is 6450 albumin is down to 3.4 procalcitonin is 0.224 and my informal interpretation of his CTA PE protocol in comparison to the one ordered last week on 23 September shows improved pulmonary edema however shows persistent infiltrate in multifocal fashion left greater than right prior to radiology read. I deferred fluid resuscitation for his MARJORIE pneumonia as patient is hemodynamically stable and has a history of CHF but I did start broad-spectrum antibiotics with azithromycin and Rocephin after blood cultures obtained. Please see final read for formal interpretation. Given his MARJORIE multifocal pneumonia and failure to thrive I had interactive discussion with hospital medicine here as patient initially refused transfer to the [facility] regarding patient presentation WIGGINS and management. Hospital medicine came and evaluated patient had a direct discussion with the family and via shared decision making they felt that patient would benefit from placement as they could not care for him currently. Hospital medicine talked to case management and recommended [facility] the [facility] due to [facility] that [facility]. Given that I had interactive discussion with hospital medicine at the [facility] regarding patient presentation WIGGINS and management and patient has been accepted for transfer to Dr. Giraldo. I was consulted by the SAROJ, and we discussed the complexity of the problems being addressed. I approve the treatment and management plan for this patient's care in the emergency department, thus performing a substantive portion of the medical decision making. Sorin Pham MD
--- NOTE | 2024-10-04 13:16 | CT_ITS ---
PROCEDURE INFORMATION: Exam: CTA Chest With Contrast Exam date and time: 10/04/2024 3:12 PM Age: 74 years old Clinical indication: Dyspnea; Additional info: Dyspnea recent heart cath and stents TECHNIQUE: Imaging protocol: Computed tomographic angiography of the chest with contrast. Exam focused on the arteries. 3D rendering (Not supervised by radiologist): MIP and/or 3D reconstructed images were created by the technologist. Radiation optimization: All CT scans at this facility use at least one of these dose optimization techniques: automated exposure control; mA and/or kV adjustment per patient size (includes targeted exams where dose is matched to clinical indication); or iterative reconstruction. Contrast material: ISOUVE 370; Contrast volume: 100 ml; Contrast route: INTRAVENOUS (IV); COMPARISON: CT ANGIO CHEST PE PROTOCOL 09/23/2024 2:13 PM FINDINGS: Pulmonary arteries: Main pulmonary trunk and right and left pulmonary arteries are patent without evidence of acute pulmonary embolism. Segmental and subsegmental branches however can not be adequately assess the inadequate vascular enhancement. Aorta: Diffuse atherosclerotic changes throughout the thoracic aorta with calcified and noncalcified plaque redemonstrated some of which is irregular in contour and may be ulcerated. Lungs: Small bibasilar pleural effusions larger on the left decreased in size from tree previous exam with adjacent bibasilar passive atelectasis improved from earlier study. There is improving upper lobe airspace disease more pronounced on the left with some patchy consolidative interstitial opacities remaining presumed infectious in nature. Pleural spaces: See Lungs finding. Heart: Heart is mildly enlarged, unchanged. Diffuse calcification of the coronary arteries redemonstrated. No significant pericardial effusion. Lymph nodes: Mild mediastinal lymphadenopathy, stable, nonspecific. Bones/joints: Prior median sternotomy. No acute bony abnormalities. Soft tissues: Unremarkable. IMPRESSION: 1. Limited CT of the chest. No central pulmonary emboli detected. 2. Scattered upper lobe airspace disease more pronounced on the left improved from previous exam presumed infectious in nature. 3. Small bibasilar pleural effusions with adjacent passive atelectasis more pronounced on the left improved from previous exam. 4. Additional chronic findings as above.
[2024-10-04 13:36] LABS: Basophils # 0.1 K/mm3 (0-0.2); Basophils % 0.9 % (0.1-2.0); Eosinophils # 0.5 Kmm3 (0.0-0.4); Eosinophils % 3.5 % (0.1-12.0); Hematocrit 36.7 % (42.0-52.0); Hemoglobin 11.4 g/dL (14.1-18.0); Immature Granulocytes # 0.06 10^3uL; Immature Granulocytes % 0.5 %; Lymphocytes # 1.4 K/mm3 (0.7-4.5); Lymphocytes % 11.1 % (10-50); Mean Corpuscular HGB Conc 31.1 g/dL (31.8-35.4); Mean Corpuscular Hemoglobin 27.1 pg (27.0-31.2); Mean Corpuscular Volume 87.2 fl (80-94); Mean Platelet Volume 9.3 fl (7.4-10.4); Monocytes % 7.9 % (1.7-9.3); Neutrophils # 9.8 K/mm3 (1.8-7.8); Neutrophils % 76.1 % (37.0-80.0); Nucleated Red Blood Cells # 0 10^3/uL; Nucleated Red Blood Cells % 0 %; Platelet Count 528 K/mm3 (142-424); Red Blood Count 4.21 M/mm3 (4.60-6.20); Red Cell Distribution Width 15.7 % (11.5-17.5); Red Cell Distribution Width-SD 49.7 fL; White Blood Count 12.9 K/mm3 (4.8-10.8)
[2024-10-04 13:48] LABS: INR 1.07 (0.9-1.1); Prothrombin Time 11.9 seconds (10.1-12.5)
[2024-10-04 13:51] LABS: Chloride 99 mmol/L (98-107); Potassium 3.8 mmoL/L (3.5-5.1); Sodium 136 mmol/L (136-145)
[2024-10-04 13:54] LABS: Alanine Aminotransferase 35 U/L (12-78); Alkaline Phosphatase 229 U/L (38-126); Aspartate Amino Transferase 30 U/L (17-59); Bilirubin,Total 0.5 mg/dl (0.2-1.3); Blood Urea Nitrogen 20 mg/dl (9-20); Calcium 8.6 mg/dl (8.4-10.2); Carbon Dioxide 31 mmol/L (22.0-30.0); Estimated Glomerular Filt Rate 31 ml/min (>60); GFR (African American) 37 ML/MIN (>60); Glucose 203 mg/dl (74-100); Total Protein,Serum 6.9 g/dl (6.3-8.2)
--- NOTE | 2024-10-04 14:00 | PC.NURSE ---
Colostomy emptied by staff. No further needs @ this time. Call [facility] w/in reach.
[2024-10-04 14:04] LABS: Anion Gap 9.8 mEq/L (5-15); NT Pro Brain Natriuretic Pep. 6450 pg/mL (0-450)
[2024-10-04 15:03] LABS: Troponin I 0.04 ng/ml (0.00-0.034)
[2024-10-04] MEDS: 0.9 % SODIUM CHLORIDE 50 ML VIAL IV (15:16)
[2024-10-04] MEDS: SODIUM CHLORIDE 0.9% 10ML SYR (RAD ONLY) 10 ML IV (15:17)
[2024-10-04] MEDS: IOPAMIDOL-370 (76%);100ML BOTTLE 100 ML IV (15:17)
--- NOTE | 2024-10-04 15:36 | PC.NURSE ---
Magdiel ENRIQUE s/w pt and family
[2024-10-04 15:39] LABS: Lactate Venous 2.3 mmol/L (0.4-2.0); VBG Base Excess 3.9 mmol/L (-2.4-2.3); VBG HCO3 29.5 mmol/L (23-30); VBG Oxygen Saturation 80.2 % (50-70); VBG PCO2 54.2 mmol/L (35-51); VBG PH 7.35 mmol/L (7.31-7.41); VBG Total CO2 31.1 mmol/L (23-27)
[2024-10-04 15:51] LABS: Procalcitonin 0.224 ng/mL (0.0-2.0)
[2024-10-04 15:57] LABS: Albumin Level 3.4 g/dl (3.5-5.0); Globulin 3.5 g/dL (1.3-3.2)
[2024-10-04 16:01] LABS: Troponin I 0.03 ng/ml (0.00-0.034)
--- NOTE | 2024-10-04 16:34 | PC.NURSE ---
Magdiel ENRIQUE s/w Dr Keenan for admission. Reviewed with pt and his daughter the [facility] refusal [facility]. Pt is A&O and asked for daughter to sign it since he was pretty shaky . [facility] to [facility] form faxed [facility].
[2024-10-04] MEDS: AZITHROMYCIN 250MG TABLET 500 MG PO (16:56)
[2024-10-04] MEDS: CEFTRIAXONE 1 GM 1 GM in 0.9 % SODIUM CHLORIDE 50 ML IV (16:56)
--- NOTE | 2024-10-04 17:11 | PC.NURSE ---
[id number] - Dr. Keenan @ [facility]
--- NOTE | 2024-10-04 17:28 | PC.NURSE ---
Dr. Keenan @ bedside speaking again to pt's daughters.
--- NOTE | 2024-10-04 17:39 | PC.NURSE ---
[facility] the [facility] per [facility]. They stated that they need a covid flu swab. They also will call back soon.
--- NOTE | 2024-10-04 17:45 | PC.NURSE ---
Arti Merritt obtained the flu/covid swab. She also was instructed by RN. Garry Angeles to put the patient on 2L of O2.
[2024-10-04 17:50] LABS: Coronavirus 19, PCR Not Detected (NotDetected); Influenza A, PCR Not Detected (NotDetected); Influenza B, PCR Not Detected (NotDetected)
--- NOTE | 2024-10-04 19:32 | PC.NURSE ---
[facility] to [facility] at 1932. Spoke with Heath DAVILA. [facility] notified to call EMS for transfer.
[2024-10-04 19:39] LABS: Reflex Lactic Add Lactic Reflex
--- NOTE | 2024-10-04 19:45 | PC.NURSE ---
Spoke with [facility] to make them aware of [facility] to the [facility]. They are changing shifts but will be sending a truck up here right after
[2024-10-04 20:17] LABS: Troponin I 0.03 ng/ml (0.00-0.034)
== END 2024-10-04 20:28 | disposition short-term general hospital (02) ==
PROVIDERS: Physician Assistant; Emergency Provider Emergency Medicine
DX: R07.89 Other chest pain (principal); R09.02 Hypoxemia; J18.9 Pneumonia, unspecified organism; R62.7 Adult failure to thrive; N17.9 Acute kidney failure, unspecified; Z99.81 Dependence on supplemental oxygen; Z87.891 Personal history of nicotine dependence
CPT/HCPCS: 71275; 80053; 82803; 83880; 84145; 84484; 85025; 85610; 87040; 87636; 93005; 96365; 96366; 99291; J0696; Q9967